=== PATIENT | female | born 1970 | race African-American/Black ===

== ENCOUNTER → 2021-11-22 10:34 | Outpatient (BNVA) | payer MEDICARE, MEDICAID, SELFPAY | PROVIDERS: Visit Provider Nurse Practitioner Family | DX: G35 Multiple sclerosis (principal); G47.33 Obstructive sleep apnea (adult) (pediatric); G43.909 Migraine, unspecified, not intractable, without status migrainosus; R20.2 Paresthesia of skin | CPT/HCPCS: 99212 ==

== ENCOUNTER → 2022-02-21 08:53 | Outpatient (BNVA) | payer MEDICARE, MEDICAID, SELFPAY | PROVIDERS: PCP Internal Medicine; Visit Provider Nurse Practitioner Family | DX: G35 Multiple sclerosis (principal); R20.2 Paresthesia of skin; G43.909 Migraine, unspecified, not intractable, without status migrainosus; G47.33 Obstructive sleep apnea (adult) (pediatric) | CPT/HCPCS: 99212 ==

== ENCOUNTER → 2022-05-26 07:51 | Outpatient (BNVA) | payer MEDICARE, MEDICAID, SELFPAY | PROVIDERS: PCP Internal Medicine; Visit Provider Nurse Practitioner Family | DX: G43.909 Migraine, unspecified, not intractable, without status migrainosus (principal) | CPT/HCPCS: 99212 ==

== ENCOUNTER 2022-07-07 | Outpatient (REF) | payer OTHER, SELFPAY ==
--- NOTE | ~2022-07-07 | XR_ITS ---
EXAMINATION: XR KNEE, RIGHT XR AP STANDING, BILATERAL CLINICAL INFORMATION: Pain. COMPARISON: None. TECHNIQUE: AP standing view of both knees and sunrise and lateral views of the right knee. FINDINGS: There is loss of the medial joint space compartment with marginal spurring and sclerosis identified. There is spurring about the lateral joint space compartment. There is also noted to be significant degenerative narrowing with sclerosis and spurring about the lateral joint space of the left knee. There is evidence of previous left medial collateral ligament injury with calcification adjacent to the medial condyle. There is narrowing of the patellofemoral joint with spurring present involving both medial and lateral facets. There appears to be a small effusion. XR/XR knee standing BI IMPRESSION: Severe degenerative joint disease about the patellofemoral joint and medial joint space of the right knee. Severe degenerative change of the lateral joint space of the left knee.
--- NOTE | ~2022-07-07 | XR_ITS ---
EXAMINATION: XR KNEE, RIGHT XR AP STANDING, BILATERAL CLINICAL INFORMATION: Pain. COMPARISON: None. TECHNIQUE: AP standing view of both knees and sunrise and lateral views of the right knee. FINDINGS: There is loss of the medial joint space compartment with marginal spurring and sclerosis identified. There is spurring about the lateral joint space compartment. There is also noted to be significant degenerative narrowing with sclerosis and spurring about the lateral joint space of the left knee. There is evidence of previous left medial collateral ligament injury with calcification adjacent to the medial condyle. There is narrowing of the patellofemoral joint with spurring present involving both medial and lateral facets. There appears to be a small effusion. XR/XR knee RT 2V IMPRESSION: Severe degenerative joint disease about the patellofemoral joint and medial joint space of the right knee. Severe degenerative change of the lateral joint space of the left knee.
== END 2022-07-07 00:01 | disposition home or self-care (01) ==
LOC: HO.HOSX
PROVIDERS: Visit Provider Physician Assistant
DX: M17.11 Unilateral primary osteoarthritis, right knee (principal); E66.01 Morbid (severe) obesity due to excess calories; G47.33 Obstructive sleep apnea (adult) (pediatric); Z68.41 Body mass index [BMI] 40.0-44.9, adult
CPT/HCPCS: 73560; 73565; 99202

== ENCOUNTER → 2022-07-13 13:07 | Outpatient (BNVA) | payer OTHER, SELFPAY | PROVIDERS: PCP Internal Medicine; Visit Provider Physician Assistant | DX: E66.01 Morbid (severe) obesity due to excess calories (principal); Z68.41 Body mass index [BMI] 40.0-44.9, adult; G47.33 Obstructive sleep apnea (adult) (pediatric); G35 Multiple sclerosis; G43.909 Migraine, unspecified, not intractable, without status migrainosus; M17.11 Unilateral primary osteoarthritis, right knee; I10 Essential (primary) hypertension; K21.9 Gastro-esophageal reflux disease without esophagitis | CPT/HCPCS: 99202; 99212 ==

== ENCOUNTER → 2022-07-20 08:43 | Outpatient (REF) | payer OTHER, SELFPAY ==
--- NOTE | ~2022-07-20 | XR_ITS ---
EXAMINATION: XR CHEST CLINICAL INFORMATION: Essential primary hypertension COMPARISON: None TECHNIQUE: 2 views of the chest were obtained. FINDINGS: No significant abnormality is noted involving the heart, lungs, mediastinum, bony thorax or soft tissues. There are degenerative changes of the spine. XR/XR chest 2V IMPRESSION: Unremarkable examination.
[2022-07-20 09:07] LABS: MANUAL DIFF FLAG NO
--- NOTE | 2022-07-20 09:07 | ECG_ITS ---
Test Reason : Hypertension Blood Pressure : / mmHG Vent. Rate : 070 BPM Atrial Rate : 070 BPM P-R Int : 168 ms QRS Dur : 088 ms QT Int : 396 ms P-R-T Axes : 018 034 039 degrees QTc Int : 427 ms Normal sinus rhythm Normal ECG No previous ECGs available Referred By: Mireya Sandoval Electronically Signed By:CHANELLE HUSSEIN MD
[2022-07-20 09:34] LABS: Basophils Percent Auto 0.4 % (0-2); Eosinophils Absolute Auto 0.1 X10*3/uL (0.0-0.4); Eosinophils Percent Auto 1.2 % (0-4); Hematocrit 38.3 % (37.0-47.0); Hemoglobin 12.6 g/dl (12.0-16.0); Imm Gran Abs Auto 0.01 X10*3/uL (0.00-0.03); Imm Gran Pct Auto 0.1 % (0.0-0.4); Lymphocytes Absolute Auto 1.2 X10*3/uL (1.2-4.9); Lymphocytes Percent Auto 17.2 % (20-40); Mean Corpuscular HGB Conc 32.9 g/dl (31.0-35.0); Mean Corpuscular Hemoglobin 28.7 pg (27.0-33.0); Mean Corpuscular Volume 87.2 fL (80.0-98.0); Mean Platelet Volume 10.9 fL (9.4-12.3); Monocytes Absolute Auto 0.3 X10*3/uL (0.1-1.2); Monocytes Percent Auto 4.3 % (2-11); Neutrophils Absolute Auto 5.3 x10*3/uL (2.0-8.3); Neutrophils Percent Auto 76.8 % (45-73); Platelet Count 350 X10*3/uL (160-400); Red Blood Count 4.39 X10*6/uL (4.20-5.50); Red Cell Distribution Width 13.1 % (11.0-16.0); White Blood Count 6.9 X10*3/uL (4.8-10.8)
[2022-07-20 10:00] LABS: Estimated Average Glucose 108 mg/dL; Hemoglobin A1c % 5.4 %
[2022-07-20 10:16] LABS: Alanine Aminotransferase 19 U/L (0-31); Albumin Level 4.3 g/dL (3.5-5.0); Alkaline Phosphatase 70 U/L (39-117); Anion Gap 13 (12-20); Aspartate Amino Transferase 18 U/L (5-31); Bilirubin Total 0.3 mg/dL (0.0-1.0); Blood Urea Nitrogen 12 mg/dL (9-16); C Reactive Protein 1.72 mg/dL (< or = 0.50); Calcium 9.6 mg/dL (8.4-10.2); Carbon Dioxide 27 mmol/L (22-29); Chloride 105 mmol/L (96-108); Cholesterol 117 mg/dL; Estimated Glomerular Filt Rate > 60; Glucose Random 114 mg/dL (60-115); HDL Cholesterol 42 mg/dL; Iron 44 mcg/dL (30-160); LDL Cholesterol Calculated 65 mg/dl; Percent Iron Saturation 11 % (15-50); Potassium 3.9 mmol/L (3.3-5.1); Sodium 141 mmol/L (135-145); Total Iron Binding Capacity 386 mcg/dL (228-428); Total Protein 7.5 g/dL (6.5-8.0); Triglycerides 50 mg/dL; Unsaturated Iron Binding 342 ug/dL
[2022-07-20 10:21] LABS: Ferritin 25 ng/mL (10-250); Insulin 13 uU/mL (2-29); TSH reflex Free T4 0.93 uIU/mL (0.32-4.0); Vitamin D 25-OH Total 19.5 ng/mL (>30)
[2022-07-20 10:39] LABS: Vitamin B12 806 pg/mL (200-900)
[2022-07-21 15:57] LABS: Calcium (PTHI) 9.5 mg/dL (8.6-10.4); PTHI 55 pg/mL (16-77)
[2022-07-24 07:16] LABS: Vitamin B1 13 nmol/L (8-30)
[2022-07-24 13:21] LABS: Zinc 81 mcg/dL (60-130)
[2022-07-24 17:51] LABS: Vitamin A 36 mcg/dL (38-98)
== END ==
LOC: HO.CARD 08:43
PROVIDERS: PCP Internal Medicine; Visit Provider Physician Assistant
DX: I10 Essential (primary) hypertension (principal); E66.01 Morbid (severe) obesity due to excess calories; Z68.41 Body mass index [BMI] 40.0-44.9, adult; G47.33 Obstructive sleep apnea (adult) (pediatric); K21.9 Gastro-esophageal reflux disease without esophagitis; G35 Multiple sclerosis
CPT/HCPCS: 36415; 71046; 80053; 80061; 82306; 82607; 82728; 82746; 83036; 83525; 83540; 83970; 84425; 84443; 84590; 84630; 85025; 86140; 93005

== ENCOUNTER → 2022-08-03 12:59 | Outpatient (BNVA) | payer OTHER, SELFPAY | PROVIDERS: PCP Internal Medicine; Visit Provider Physician Assistant | DX: E66.01 Morbid (severe) obesity due to excess calories (principal); G35 Multiple sclerosis; I10 Essential (primary) hypertension; K21.9 Gastro-esophageal reflux disease without esophagitis; G47.33 Obstructive sleep apnea (adult) (pediatric); Z68.41 Body mass index [BMI] 40.0-44.9, adult; Z68.42 Body mass index [BMI] 45.0-49.9, adult | CPT/HCPCS: 99212 ==

== ENCOUNTER → 2022-08-10 14:40 | Outpatient (BNVA) | payer OTHER, SELFPAY | PROVIDERS: PCP Internal Medicine; Visit Provider Dietitian, Registered | DX: E66.01 Morbid (severe) obesity due to excess calories (principal) | CPT/HCPCS: 97802 ==

== ENCOUNTER → 2022-08-29 11:07 | Outpatient (BNVA) | payer MEDICARE, SELFPAY | PROVIDERS: PCP Internal Medicine Nephrology; Visit Provider Nurse Practitioner Family | DX: G35 Multiple sclerosis (principal); G43.909 Migraine, unspecified, not intractable, without status migrainosus; G47.33 Obstructive sleep apnea (adult) (pediatric); R32 Unspecified urinary incontinence; Z79.899 Other long term (current) drug therapy | CPT/HCPCS: 99212 ==

== ENCOUNTER → 2022-11-30 10:37 | Outpatient (BNVA) | payer MEDICARE, SELFPAY | PROVIDERS: PCP Internal Medicine Nephrology; Visit Provider Nurse Practitioner Family | DX: G35 Multiple sclerosis (principal); R32 Unspecified urinary incontinence; I10 Essential (primary) hypertension; R20.2 Paresthesia of skin; G43.909 Migraine, unspecified, not intractable, without status migrainosus; G47.33 Obstructive sleep apnea (adult) (pediatric); Z99.89 Dependence on other enabling machines and devices | CPT/HCPCS: 99212 ==

== ENCOUNTER → 2023-01-25 12:45 | Outpatient (BNVA) | payer MEDICARE, SELFPAY | PROVIDERS: PCP Internal Medicine Nephrology; Visit Provider Urology | DX: G35 Multiple sclerosis (principal); R39.15 Urgency of urination; R32 Unspecified urinary incontinence | CPT/HCPCS: 51798; 99202 ==

== ENCOUNTER 2023-02-03 10:14 | Outpatient (REF) | payer MEDICARE, SELFPAY ==
--- NOTE | ~2023-02-03 | XR_ITS ---
EXAMINATION: XR LUMBOSACRAL SPINE WITH OBLIQUES CLINICAL INFORMATION: Low back pain. COMPARISON: MRI lumbar spine 01/03/2023 TECHNIQUE: AP, flexion/extension, and lateral views of the lumbar spine. FINDINGS: Radiographic evaluation is limited by patient's body habitus and extensive overlying soft tissues. Partial sacralization of L5 on the right. 8 mm anterolisthesis of L3 on L4. 8 mm anterolisthesis of L4 and L5. No change with flexion and extension. Vertebral body heights are maintained. There is facet hypertrophy at L3-L4, L4-L5 and L5-S1. Mild intervertebral disc space narrowing at L3-L4 and L5-S1. XR/XR lumbar spine 4V min IMPRESSION: Mild lumbar spondylosis at L3-L4 and L5-S1. 8 mm anterolisthesis of L3 on L4. 8 mm anterolisthesis of L4 on L5.
== END 2023-02-03 10:15 | disposition home or self-care (01) ==
LOC: HO.HOSX 10:14
PROVIDERS: PCP Internal Medicine; Visit Provider Physician Assistant
DX: M54.50 Low back pain, unspecified (principal)
CPT/HCPCS: 72110; 99202

== ENCOUNTER → 2023-03-02 10:38 | Outpatient (BNVA) | payer MEDICARE, SELFPAY | PROVIDERS: PCP Internal Medicine; Visit Provider Nurse Practitioner Family ==

== ENCOUNTER → 2023-03-15 11:42 | Outpatient (BNVA) | payer MEDICARE, SELFPAY | PROVIDERS: PCP Internal Medicine; Visit Provider Urology | DX: R39.15 Urgency of urination (principal); R32 Unspecified urinary incontinence; G35 Multiple sclerosis; Z79.82 Long term (current) use of aspirin; Z79.899 Other long term (current) drug therapy | CPT/HCPCS: 51798; 99212 ==

== ENCOUNTER 2023-05-26 09:44 | Outpatient (REF) | payer MEDICARE, SELFPAY ==
[2023-05-26 16:23] LABS: Urine Cytology See Pathology rpt
== END 2023-05-26 09:45 | disposition home or self-care (01) ==
LOC: HO.LAB 09:44
PROVIDERS: PCP Internal Medicine; Visit Provider Urology
DX: G35 Multiple sclerosis (principal); R39.15 Urgency of urination; R32 Unspecified urinary incontinence; R31.29 Other microscopic hematuria; N39.0 Urinary tract infection, site not specified
CPT/HCPCS: 81003; 87086; 88112; 99212

== ENCOUNTER 2023-05-26 09:44 | Outpatient (AMB) | payer MEDICARE, SELFPAY ==
--- NOTE | 2023-05-26 09:46 | A.OFFVIS_ITS ---
Intake Intake Visit Reasons: 10w/US Intake Note: Patient presents today for a follow-up on US Results: Patient no show Meds- None Allergies to Antibiotic- No Known Allergies Blood Thinner- None Pelletising Extruder Operator Required: No Accompanied by: Self / Same As Patient Allergies No Known Allergies Allergy (Verified 03/15/23 11:55) HPI HPI Comments History of Present Illness Details Petrona is a 53-year-old female who presents today to the office for a follow-up. 05/26/2023? Petrona is followed today for urinary incontinence. She was last seen by me on 03/15/2023 for multiple sclerosis. Gemtesa 75 mg was ordered during that time. Renal US prior was ordered, and she was advised to follow-up after 10 weeks at that time. She has been taking Gemtesa 75 mg for her bladder control. She states that Gemtesa is controlling her bladder symptoms better than the vesicare. She still needs to change the pads less often, every 4-6 hours, as compared to every 2 hours. She states that the pads are damped, where they were soaked prior to the use of the Gemtesa. She mentions having vaginal bleeding. Review of charts: Last visit: 03/15/2023? OV--01/25/23--seen as a new patient evaluation for urinary incontinence.? prescribed vesicare 5 mgThe patient is taking Vesicare 5 mg with moderate benefits, less urgency She still complains having episodes of urinary leakage but is better than before.? Denies UTI symptoms.? The patient complains increased urinary urgency and leakage since 2 years The patient had uncontrollable hand tremors and diplopia 4/5 years ago and was diagnosed with multiple sclerosis. She is taking Copaxone 3 times per week for multiple sclerosis. Has menorrhagia due to fibroids. The patient had 4 vaginal deliveries. She had her last 30 years ago. The largest delivered child was 8 pounds.? Has arthritis of right knee and uses cane to ambulate.? Co Morbidity - Obesity--The patient has lost weight from 330 pounds to 265 pounds to undergo arthritis surgery. history of varicose veins procedure done in the left leg which has affected her ability to walk/exercise. 03/15/23--Patient was unable to provide u rine sample today.? Evaluation today: Bladder scan PVR: 12 mL.? Plan : Gemtesa 75 mg was ordered.?Renal US prior was ordered.?Follow-up after 10 weeks. 05/26/2023: Evaluation today?UA? Leukocy fang: 15 José; blood: 3 + 05/26/2023: Plan: Continue Gemtesa 75 mg daily. Discussed the importance of getting renal bladder US. Will send urine for cytology. Surveillance urine culture. Office Cystoscopy was discussed to be scheduled. Follow up in 2 months. [facility] Medical History High blood pressure Surgical History H/O knee surgery Family History Mother No problems noted. Father No problems noted. Social History Household Members: Spouse Alcohol intake: current Alcohol intake frequency: a few times a week Alcohol type: beer and hard liquor Patient Tobacco Use Status: Never used Tobacco Current occupational status: disabled Review of Systems Const All systems reviewed & are unremarkable except as noted in HPI and below Reports no additional complaints Eyes Reports no additional complaints ENT Reports no additional complaints Card Denies dyspnea Resp Denies cough and Denies dyspnea GI Reports no additional complaints Reports no additional complaints Musc Reports no additional complaints Skin/Breast Denies rash Neuro Reports no additional complaints Psych Reports no additional complaints Endo Reports no additional complaints Scotty/Lymph Reports no additional complaints Aller/Immun Reports no additional complaints Physical Exam Const General: cooperative, healthy appearing and no acute distress Nutritional Appearance: overweight Orientation/consciousness: patient oriented x3 Limitations: ambulation with walker HEENT Head: Yes normal to inspection, Yes normocephalic and Yes atraumatic Eyes Conjunctivae: conjunctivae normal Neck Neck: Yes normal visual inspection and Yes trachea midline Chest Chest palpation & inspection: normal inspection of the chest Resp Effort & Inspection: normal respiratory effort Cardio Rate: regular rate GI Inspection: Yes normal to inspection Skin General skin exam: no rashes or lesions noted Neuro General: patient oriented x3 Psych Appearance: grossly normal Results AMB Urinalysis, Automated UA Leukoctes 15 José/uL Last Edit by JEAN-PIERRE Tran on 05/26/23 09:57 UA Nitrite Negative Last Edit by Ashvin Cabrera Tray on 05/26/23 09:57 UA Urobilinogen 0.2 mg/dL Last Edit by Ashvin Cabrera Tray on 05/26/23 09:5 7 UA Protein 15 mg/dL Last Edit by JEAN-PIERRE Tran on 05/26/23 09:57 UA pH 6.0 Last Edit by JEAN-PIERRE Tran on 05/26/23 09:57 UA Blood 200 Kapil/uL Last Edit by Ashvin Cabrera Tray on 05/26/23 09:57 3+ Ashvin Cabrera 05/26/23 09:57 UA Specific [place] 1.025 Last Edit by Ashvin Cabrera Tray on 05/26/23 09: 57 UA Ketone Negative Last Edit by JEAN-PIERRE Tran on 05/26/23 09:57 UA Bilirubin 0 mg/dL Last Edit by JEAN-PIERRE Tran on 05/26/23 09:57 UA Glucose 0 mg/dL Last Edit by Ashvin Cabrera [facility] on 05/26/23 09:57 Results Reviewed Results Reviewed: Laboratory Last Values Urine pH (Auto) 6.0 05/26/23 09:50 Specific [place] (Auto) 1.025 05/26/23 09:50 Urine Protein (Auto) 15 mg/dL 05/26/23 09:50 Glucose (UA)(Auto) 0 mg/dL 05/26/23 09:50 Urine Ketones (Auto) Negative 05/26/23 09:50 Urine Blood (Auto) 200 Kapil/uL 05/26/23 09:50 Urine Nitrite (Auto) Negative 05/26/23 09:50 Urine Bilirubin (Auto) 0 mg/dL 05/26/23 09:50 Urine Urobilinogen (Auto) 0.2 mg/dL 05/26/23 09:50 Leukocyte Esterase (Auto) 15 José/uL 05/26/23 09:50 Assessment & Plan Assessment & Plan (1) Multiple sclerosis: Comment: JCV + Code(s): G35 - Multiple sclerosis (2) Urinary urgency: Code(s): R39.15 - Urgency of urination (3) Urinary incontinence: Code(s): R32 - Unspecified urinary incontinence (4) Microscopic hematuria: Code(s): R31.29 - Other microscopic hematuria Plan Continue Gemtesa 75 mg daily. Discussed the importance of getting renal bladder US. Will send urine for cytology. Surveillance urine culture. Office Cystoscopy was discussed to be scheduled. Follow up in 2 months. Orders: Orders AMB Urinalysis Automated Today Z13.9 - Encounter for screening, unspecified Patient Instructions: The patient had an opportunity to ask questions regarding treatment plan. All questions were answered. Imaging, Laboratory studies and physical exam results were discussed and reviewed in detail. No major barriers to understanding were identified. The patient expressed understanding and agreement with the above treatment plan.? ? ? The patient is aware they should contact our office by phone for worsening of their current condition or the appearance of new symptoms. Compliance is encouraged with any medications and followup testing that is ordered.? ? ? It is a privilege to be allowed the opportunity to participate in the urologic care of your patient. If you have any questions or concerns regarding treatment for the above conditions please do not hesitate to contact me. The office telephone contact is [phone].? ? ? This note is constructed in part using voice recognition software. While every effort has been made to ensure accuracy beauty counselor errors may have been included.? ? ? Yours sincerely,? ? ? Juaquin Proctor MD? Coding Level of Care Code Est Pt Level 4 (63844) Diagnoses Multiple sclerosis G35 Urinary urgency R39.15 Urinary incontinence R32 Microscopic hematuria R31.29
== END 2023-05-26 10:09 | disposition home or self-care (01) ==
PROVIDERS: PCP Internal Medicine; Visit Provider Urology
DX: G35 Multiple sclerosis (principal); R39.15 Urgency of urination; R32 Unspecified urinary incontinence; R31.29 Other microscopic hematuria; Z13.9 Encounter for screening, unspecified
CPT/HCPCS: 99214

== ENCOUNTER 2023-06-21 08:48 | Outpatient (AMB) | payer MEDICARE, SELFPAY ==
--- NOTE | 2023-06-21 08:52 | A.OFFVIS_ITS ---
Intake Vital Signs 06/21/23 09:05 Height 5 ft 4 in Weight 299 lb BMI 51.3 BP 140/90 H Blood Pressure Location Rt brachial Position Sitting Pulse 62 Pulse Source Pulse Oximeter Pulse Oximetry (%) 97 Oxygen Delivery Method Room Air Intake Visit Reasons: Follow up for Migraines-Confirmed Intake Note: Patient presents for follow up migraines. patient states its better.not as bad as before Allergies No Known Allergies Allergy (Verified 06/21/23 09:07) Medication List - Last Reconciled 06/21/23 by IAM Garcia albuterol sulfate 2.5 mg inhalation Q6H albuterol sulfate 90 mcg/actuation (ProAir HFA) 1 inh inhalation QID amitriptyline 100 mg PO BEDTIME 90 days amlodipine 2.5 mg PO DAILY aspirin (Adult Aspirin Regimen) 81 mg PO DAILY baclofen 10 - 20 mg (1 - 2 x 10 mg) PO DAILY 90 days bupropion HCl 150 mg PO BID cetirizine 10 mg PO DAILY cholecalciferol (vitamin D3) 50 mcg PO DAILY Copaxone (glatiramer) 40 mg subcut 3XW 4 weeks NS cyclobenzaprine 5 mg PO BEDTIME PRN diclofenac sodium 1% (Voltaren Arthritis Pain) 4 grams topical QID PRN 30 days erenumab-aooe (Aimovig Autoinjector) 140 mg subcut ONCE 30 days ferrous sulfate (FeroSul) 325 mg PO DAILY fluticasone furoate-vilanterol 100-25 mcg/dose (Breo Ellipta) 1 inh inhalation DAILY metformin 500 mg PO DAILY omeprazole 20 mg PO DAILY tirzepatide (Mounjaro) mg subcut vibegron (Gemtesa) 75 mg PO DAILY HPI HPI Comments History of Present Illness Details 53-yr-old female presents for f/u visit. Since the last visit, pt underwent l-spine MRI which showed anterolithiasis and moderate central spinal canal stenosis. Pt was referred to neurosurgery. Per pt, she was supposed to have surgery, however the day she came, she was never called in , and she left after 1-2 hrs. She reports her MS is stable. No noticeable relapses. Most recent brain MRI- stable. Migraines attacks are better overall. She does continue to have urinary incontinence- now f/b urology. She is working w/ her PCP on weight loss strategies- she is starting Ozempic soon. She continues to have bothersome knee pain which limits her mobility/tolerance. Using a cane to wlak. Recently had a ER eval for new onset LLE pain- per pt, DVT was ruled out. She continues to have RLE and thigh region pain. Again declines LE EMG/NCS. 01/03/23, at [facility], L-spine MRI w/o: IMPRESSION: 1. Transitional lumbosacral anatomy with partial sacralization of L5 on the right. 2. The lumbar spinal canal is mildly dif fusely narrowed related to prominent epidural lipomatosis 3. At L4-L5, there is slight progression of grade 1 anterolisthesis related to advanced facet arthropathy with stable mild central spinal canal stenosis, bilateral subarticular zone narrowing with likely mass effect on the traversing L5 nerve roots, and moderate bilateral neural foraminal narrowing. 4. At L3-L4, there is slight progression of moderate central spinal canal stenosis, bilateral subarticular zone narrowing, and moderate left and mild right neural foraminal narrowing. 12/12/22, at [facility], MRI Brain and c-spine w/wo: IMPRESSION: 1. Stable pattern and degree of supraten torial, infratentorial, and cervical spinal cord white matter changes consistent with an underlying diagnosis of demyelination in the appropriate clinical setting. 2. No demonstrated new lesions, restrict ed diffusion, or abnormal enhancement to suggest disease progression of or active demyelination. 3. Moderate multilevel degenerative spon dyloarthropathy of the cervical spine as described in detail above. Most notably, there are mild spinal canal stenoses at C5-C6 and C6-C7. Moderate to severe neural foraminal stenoses at C5-C6 and C6-C7. [facility] Medical History High blood pressure Surgical History H/O knee surgery Family History Mother No problems noted. Father No problems noted. Social History Household Members: Spouse Alcohol intake: current Alcohol intake frequency: a few times a week Alcohol type: beer and hard liquor Patient Tobacco Use Status: Never used Tobacco Current occupational status: disabled Review of Systems Const All systems reviewed & are unremarkable except as noted in HPI and below Physical Exam Vital Signs: Last Vital Signs Pulse 62 06/21/23 09:05 BP 140/90 H 06/21/23 09:05 Pulse Ox 97 06/21/23 09:05 Oxygen Delivery Method Room Air 06/21/23 09:05 BMI result Body Mass Index 51.3 Const General: cooperative and no acute distress Orientation/consciousness: patient oriented x3 HEENT Head: Yes normocephalic Resp Effort & Inspection: normal respiratory effort and able to speak in complete sentences Neuro Other: Slow to stand, stooped at hips, left foot internally rottates some, steady w/ cane. General: patient oriented x3 and CN's II-XI intact bilaterally Cognition (Neuro): normal cognition Motor exam (neuro): 5/5 motor strength present throughout Psych Appearance: grossly normal Mental Status: mental status grossly normal Speech and movement: Normal speech and movement present Affect: normal affect Attitude: cooperative Thought process: Normal thought process present Thought content: Normal thought content present Insight: Good insight present (Psych) Judgement: Good judgement present (Psych) Assessment & Plan Assessment & Plan (1) Multiple sclerosis: Comment: JCV + Code(s): G35 - Multiple sclerosis (2) Migraine: Code(s): G43.909 - Migraine, unspecified, not intractable, without status migrainosus (3) Mild obstructive sleep apnea: Code(s): G47.33 - Obstructive sleep apnea (adult) (pediatric) Plan For multiple sclerosis: Reviewed Brain MRI w/wo and C-spine MRI w/wo- stable. Continue brand-name Copaxone 40 mg subQ 3 times per week. Previous MS tx failures: generic?Glatiramer acetate (red, itchy, watery eyes). ? For urinary incontinence: f/u w/ urology as scheduled ? For headaches: Continue Aimovig 140mg sc q month, as pt has had good clinical effect from use. Continue amitriptyline? to 100 mg q.h.s. and hopes this helps headaches and back pain.. May use Baclofen 10-20mg qhs prn- for headache or back pain. Continue as needed sumatriptan. BBs contraindicated d/t h/o asthma. ? For paresthesias and back/knee pain- Will f/u on status of l-spine rpair w/ neurosurgery Voltaren gel prn. Pt declines bilateral lower extremity EMG and nerve conduction study at this time. For KARLENE:? Continue CPAP 4cmH2O nightly > 4 hrs as pt is having good clinical effect from use. We will request new CPAP machine with functioning remote compliance capabilities. f/u in 4 months or sooner prn. Coding Level of Care Code Est Pt Level 4 (82968) Diagnoses Multiple sclerosis G35 Migraine G43.909 Mild obstructive sleep apnea G47.33
[2023-06-21 09:05] VITALS: BP 140/90; PULSE 62; O2SAT 97; BMI 51.3
== END 2023-06-21 09:53 | disposition home or self-care (01) ==
PROVIDERS: PCP Internal Medicine; Visit Provider Nurse Practitioner Family
DX: G35 Multiple sclerosis (principal); G43.909 Migraine, unspecified, not intractable, without status migrainosus; G47.33 Obstructive sleep apnea (adult) (pediatric)
CPT/HCPCS: 99214

== ENCOUNTER → 2023-06-21 08:48 | Outpatient (BNVA) | payer MEDICARE, SELFPAY | PROVIDERS: PCP Internal Medicine; Visit Provider Nurse Practitioner Family | DX: G35 Multiple sclerosis (principal); G43.909 Migraine, unspecified, not intractable, without status migrainosus; G47.33 Obstructive sleep apnea (adult) (pediatric); Z79.899 Other long term (current) drug therapy | CPT/HCPCS: 99212 ==

== ENCOUNTER 2023-09-01 14:27 | Outpatient (REF) | payer MEDICARE, SELFPAY | END 2023-09-01 14:28 | disposition home or self-care (01) | LOC: HO.US 14:27 | PROVIDERS: PCP Internal Medicine; Visit Provider Urology | DX: Z13.89 Encounter for screening for other disorder (principal) ==

== ENCOUNTER 2023-10-02 10:21 | Outpatient (AMB) | payer MEDICARE, SELFPAY ==
--- NOTE | 2023-10-02 10:32 | A.OFFVIS_ITS ---
Intake Vital Signs 10/02/23 10:34 Height 5 ft 4 in Weight 300 lb BMI 51.5 BP 142/70 H Blood Pressure Location Rt brachial Position Sitting Intake Visit Reasons: 3 mnts f/u for Migraines-Confirmed Intake Note: Patient presents for 3 month follow up migraines. better than last time Allergies No Known Allergies Allergy (Verified 10/02/23 10:36) Medication List - Last Reconciled 10/02/23 by IAM Garcia albuterol sulfate 2.5 mg inhalation Q6H albuterol sulfate 90 mcg/actuation (ProAir HFA) 1 inh inhalation QID amitriptyline 100 mg PO BEDTIME 90 days amlodipine 2.5 mg PO DAILY aspirin (Adult Aspirin Regimen) 81 mg PO DAILY baclofen 10 - 20 mg (1 - 2 x 10 mg) PO DAILY 90 days bupropion HCl 150 mg PO BID cetirizine 10 mg PO DAILY cholecalciferol (vitamin D3) 50 mcg PO DAILY Copaxone (glatiramer) 40 mg subcut 3XW 4 weeks NS cyclobenzaprine 5 mg PO BEDTIME PRN diclofenac sodium 1% (Voltaren Arthritis Pain) 4 grams topical QID PRN 30 days erenumab-aooe (Aimovig Autoinjector) 140 mg subcut ONCE 30 days ferrous sulfate (FeroSul) 325 mg PO DAILY fluticasone furoate-vilanterol 100-25 mcg/dose (Breo Ellipta) 1 inh inhalation DAILY metformin 500 mg PO DAILY omeprazole 20 mg PO DAILY tirzepatide (Mounjaro) mg subcut vibegron (Gemtesa) 75 mg PO DAILY HPI HPI Comments History of Present Illness Details 53-yr-old female presents for f/u visit. Pt reports she did have an ER eval for LLE burning calf pain- work-up was negative for DVT. Was told she has left knee arthritis- bone on bone. She did therapy- helped some. States MS is stable- denies any interval relapse symptoms. Urinary incontinence is better- trying to void more regularly. Drinks 2-3 12 oz bottles of water, 1-2 tea/coffee in the am, 2 8-12oz of premier protein drink. Headaches are a bit better but still daily. Tolerating the Amitriptyline and Topiramate well. Has not had Aimovig or Sumatriptan in some time. [facility] Medical History High blood pressure Surgical History H/O knee surgery Family History Mother No problems noted. Father No problems noted. Social History Household Members: Spouse Alcohol intake: current Alcohol intake frequency: a few times a week Alcohol type: beer and hard liquor Patient Tobacco Use Status: Never used Tobacco Current occupational status: disabled Review of Systems Const All systems reviewed & are unremarkable except as noted in HPI and below Physical Exam Vital Signs: Last Vital Signs BP 142/70 H 10/02/23 10:34 BMI result Body Mass Index 51.5 Const General: cooperative and no acute distress Orientation/consciousness: patient oriented x3 HEENT Head: Yes normocephalic Resp Effort & Inspection: normal respiratory effort and able to speak in complete sentences Neuro Other: stooped at waist, left antalgic gait, steayd w/ cane. General: patient oriented x3 and CN's II-XI intact bilaterally Cognition (Neuro): normal cognition Motor exam (neuro): 5/5 motor strength present throughout Psych Appearance: grossly normal Mental Status: mental status grossly normal Speech and movement: Normal speech and movement present Affect: normal affect Attitude: cooperative Thought process: Normal thought process present Thought content: Normal thought content present Insight: Good insight present (Psych) Judgement: Good judgement present (Psych) Assessment & Plan Assessment & Plan (1) Multiple sclerosis: Comment: JCV + Code(s): G35 - Multiple sclerosis (2) Mild obstructive sleep apnea: Code(s): G47.33 - Obstructive sleep apnea (adult) (pediatric) (3) Migraine: Code(s): G43.909 - Migraine, unspecified, not intractable, without status migrainosus Plan For multiple sclerosis: Last Brain MRI w/wo and C-spine MRI w/wo- stable in November 2022- will order annual f/u at next visit. Continue brand-name Copaxone 40 mg subQ 3 times per week. Previous MS tx failures: generic?Glatiramer acetate (red, itchy, watery eyes). ? For urinary incontinence: Continue scheduled voiding ? For headaches: Resume Aimovig 140mg sc q month, as pt has had good clinical effect from use previously. Continue amitriptyline? to 100 mg q.h.s. for headaches and back pain.. May use Baclofen 10-20mg qhs prn- for headache or back pain. Resume sumatriptan prn BBs contraindicated d/t h/o asthma. ? For paresthesias and back/knee pain- Monitor Voltaren gel prn. Pt has declined bilateral lower extremity EMG/NCS.. ? For KARLENE:? Continue CPAP 4cmH2O nightly > 4 hrs as pt is having good clinical effect from use. Will f/u on request new CPAP machine with functioning remote compliance capabilities. ? f/u in 4 months or sooner prn. Medications: New sumatriptan succinate (0.5 - 1 x 100 mg) 50 - 100 mg orally at onset of headache, may repeat in 2 hrs PRN; max 2 tabs per day or 4 tabs/week (may take with Ibuprofen) 30 days 12 tabs 6RF migraine headache Changed From topiramate 50 mg PO BID 30 days 60 tabs 6RF To topiramate 50 mg PO BEDTIME 30 days 30 tabs 6RF Refilled erenumab-aooe (Aimovig Autoinjector) 140 mg subcut ONCE 30 days 30 mL 6RF G4 3.909 - Migraine, unspecified, not intractable, without status migrainosus Coding Level of Care Code Est Pt Level 4 (60694) Diagnoses Multiple sclerosis G35 Mild obstructive sleep apnea G47.33 Migraine G43.909
[2023-10-02 10:34] VITALS: BP 142/70; BMI 51.5
== END 2023-10-02 11:32 | disposition home or self-care (01) ==
PROVIDERS: PCP Internal Medicine; Visit Provider Nurse Practitioner Family
DX: G35 Multiple sclerosis (principal); G47.33 Obstructive sleep apnea (adult) (pediatric); G43.909 Migraine, unspecified, not intractable, without status migrainosus
CPT/HCPCS: 99214

== ENCOUNTER → 2023-10-02 10:21 | Outpatient (BNVA) | payer MEDICARE, SELFPAY | PROVIDERS: PCP Internal Medicine; Visit Provider Nurse Practitioner Family | DX: G43.909 Migraine, unspecified, not intractable, without status migrainosus (principal); G35 Multiple sclerosis; G47.33 Obstructive sleep apnea (adult) (pediatric) | CPT/HCPCS: 99212 ==

== ENCOUNTER 2024-01-10 08:56 | Outpatient (AMB) | payer MEDICARE, SELFPAY ==
--- NOTE | 2024-01-10 09:35 | MHC.OFFVIS ---
Vital Signs 01/10/24 09:36 Height 5 ft 4 in Weight 309 lb BMI 53.0 BP 126/84 Blood Pressure Location Rt brachial Position Sitting Intake Visit Reasons: 3M follow up-Conf Intake Note: Patient presents for 3 month follow up Allergies No Known Allergies Allergy (Verified 01/10/24 09:38) Medication List - Last Reconciled 01/10/24 by IAM Garcia albuterol sulfate 2.5 mg inhalation Q6H albuterol sulfate 90 mcg/actuation (ProAir HFA) 1 inh inhalation QID amitriptyline 100 mg PO BEDTIME 90 days amlodipine 2.5 mg PO DAILY aspirin (Adult Aspirin Regimen) 81 mg PO DAILY baclofen 10 - 20 mg (1 - 2 x 10 mg) PO DAILY 90 days bupropion HCl SR 150 mg PO BID cetirizine 10 mg PO DAILY cholecalciferol (vitamin D3) 50 mcg PO DAILY Copaxone (glatiramer) 40 mg subcut 3XW 4 weeks NS cyclobenzaprine 5 mg PO BEDTIME PRN diclofenac sodium 1% (Voltaren Arthritis Pain) 4 grams topical QID PRN 30 days erenumab-aooe (Aimovig Autoinjector) 140 mg subcut ONCE 30 days ferrous sulfate (FeroSul) 325 mg PO DAILY fluticasone furoate-vilanterol 100-25 mcg/dose (Breo Ellipta) 1 inh inhalation DAILY metformin 500 mg PO DAILY omeprazole 20 mg PO DAILY sumatriptan succinate 50 - 100 mg orally at onset of headache, may repeat in 2 hrs PRN; max 2 tabs per day or 4 tabs/week (may take with Ibuprofen) 30 days tirzepatide (Mounjaro) mg subcut topiramate 50 mg PO BEDTIME 30 days vibegron (Gemtesa) 75 mg PO DAILY HPI Comments Details: 53-yr-old female presents for f/u visit. Pt denies any significant interval medical changes. Pt had seen Liyah hunter- had a few left knee cortisone injections, which helped for a few years. She has not followed back up, as she was told she has to lose weight. Her jay knee pain limits her mobility. No known MS relapses. She did have urology consult- has not had f/u. She was started on Gemtesa, which was helpful, but has run out. Migraines are a bit better but still daily. States compliant w/ Aimovig. Tolerating the Amitriptyline and Topiramate well. [facility] Medical History High blood pressure Surgical History H/O knee surgery Family History Mother No problems noted. Father No problems noted. Social History Household Members: Spouse Alcohol intake: current Alcohol intake frequency: a few times a week Alcohol type: beer and hard liquor Patient Tobacco Use Status: Never used Tobacco Current occupational status: disabled Physical Exam Vital Signs: Last Vital Signs BP 126/84 01/10/24 09:36 BMI result Body Mass Index 53.0 Const General: cooperative and no acute distress Orientation/consciousness: patient oriented x3 Resp Effort & Inspection: normal respiratory effort and able to speak in complete sentences Neuro Other: BUE MS 5/5 BLE MS 5-/5 Slow to stand, short steps, knees bent. General: patient oriented x3 Cranial nerves: Yes CN's II-XII intact bilaterally Cognition (Neuro): normal cognition Psych Appearance: grossly normal Mental Status: mental status grossly normal Speech and movement: Normal speech and movement present Affect: normal affect Attitude: cooperative Assessment & Plan Assessment & Plan (1) Multiple sclerosis: Comment: JCV + Code(s): G35 - Multiple sclerosis Category: Medical (2) Migraine: Code(s): G43.909 - Migraine, unspecified, not intractable, without status migrainosus Category: Medical (3) Mild obstructive sleep apnea: Code(s): G47.33 - Obstructive sleep apnea (adult) (pediatric) Category: Medical (4) Paresthesias: Comment: Left proximal lateral thigh- ? Meralgia paresthetica. BLE- plantar feet Code(s): R20.2 - Paresthesia of skin Category: Medical Plan For multiple sclerosis: Will order f/u Brain MRI w/wo and C-spine MRI w/wo.t. Continue brand-name Copaxone 40 mg subQ 3 times per week. Previous MS tx failures: generic?Glatiramer acetate (red, itchy, watery eyes). ? For urinary incontinence: Continue scheduled voiding Resume Gemtesa 75mg qd. ? For headaches: Trial Qulipta 60mg qhs- in hopes this is more effective than Aimovig, and may promote wt loss. Once Qulipta available, hold Aimovig 140mg sc q month, as pt has had good clinical effect from use previously. Continue amitriptyline? to 100 mg q.h.s. for headaches and back pain.. May use Baclofen 10-20mg qhs prn- for headache or back pain. Resume sumatriptan prn BBs contraindicated d/t h/o asthma. ? For paresthesias and back/knee pain- Voltaren gel prn. Pt has declined bilateral lower extremity EMG/NCS.. ? For KARLENE:? Continue CPAP 4cmH2O nightly > 4 hrs as pt is having good clinical effect from use. Will f/u on request new CPAP machine with functioning remote compliance capabilities. ? f/u in 6 months or sooner prn. Orders: Orders MR cervical spine wo/w con Today G35 - Multiple sclerosis, R39.15 - Urgency of urination MR head/brain wo/w con Today G35 - Multiple sclerosis, R39.15 - Urgency of urination Medications: New atogepant (Qulipta) 60 mg PO DAILY 30 days 30 tabs 6RF Changed From baclofen 10 - 20 mg (1 - 2 x 10 mg) PO DAILY 90 days 180 tabs 1RF To baclofen 10 - 20 mg (1 - 2 x 10 mg) PO DAILY 90 days PRN 90 tabs 1RF muscle spasm Refilled topiramate 50 mg PO BEDTIME 30 days 30 tabs 6RF sumatriptan succinate (0.5 - 1 x 100 mg) 50 - 100 mg orally at onset of headache, may repeat in 2 hrs PRN; max 2 tabs per day or 4 tabs/week (may take with Ibuprofen) 30 days 12 tabs 6RF migraine headache amitriptyline 100 mg PO BEDTIME 90 days 90 tabs 1RF vibegron (Gemtesa) 75 mg PO DAILY 90 tabs 3RF erenumab-aooe (Aimovig Autoinjector) 140 mg subcut ONCE 30 days 30 mL 6RF G43.909 - Migraine, unspecified, not intractable, without status migrainosus Coding Level of Care Code Est Pt Level 4 (24283) Diagnoses Multiple sclerosis G35 Migraine G43.909 Mild obstructive sleep apnea G47.33 Paresthesias R20.2
[2024-01-10 09:36] VITALS: BP 126/84; BMI 53.0
== END 2024-01-10 10:32 | disposition home or self-care (01) ==
PROVIDERS: PCP Internal Medicine; Visit Provider Nurse Practitioner Family
DX: G35 Multiple sclerosis (principal); G43.909 Migraine, unspecified, not intractable, without status migrainosus; G47.33 Obstructive sleep apnea (adult) (pediatric); R20.2 Paresthesia of skin
CPT/HCPCS: 99214

== ENCOUNTER → 2024-01-10 08:56 | Outpatient (BNVA) | payer MEDICARE, SELFPAY | PROVIDERS: PCP Internal Medicine; Visit Provider Nurse Practitioner Family | DX: G35 Multiple sclerosis (principal); G43.909 Migraine, unspecified, not intractable, without status migrainosus; G47.33 Obstructive sleep apnea (adult) (pediatric); R20.2 Paresthesia of skin | CPT/HCPCS: 99212 ==

== ENCOUNTER 2025-01-27 13:12 | Outpatient (AMB) | payer MEDICARE, SELFPAY ==
[2025-01-27 13:29] VITALS: BP 120/82; PULSE 80; O2SAT 95
--- NOTE | 2025-01-27 13:29 | A.OFFVIS_ITS ---
Vital Signs 01/27/25 13:29 Weight 306 lb BP 120/82 Blood Pressure Location Lt brachial Position Sitting Pulse 80 Pulse Source Pulse Oximeter Pulse Oximetry (%) 95 Oxygen Delivery Method Room Air Intake Visit Reasons: 6 Month F/U Intake Note: Patient presents 6 month follow up for KARLENE/Migraines. Patient non compliant with CPAP. Religious Assistant Required: No Accompanied by: Self / Same As Patient Allergies No Known Allergies Allergy (Verified 01/27/25 13:32) Medication List - Last Reconciled 01/27/25 by IAM Garcia albuterol sulfate 2.5 mg inhalation Q6H albuterol sulfate 90 mcg/actuation (ProAir HFA) 1 inh inhalation QID amitriptyline 100 mg PO BEDTIME 90 days amlodipine 2.5 mg PO DAILY apixaban (Eliquis) 5 mg PO BID aspirin (Adult Aspirin Regimen) 81 mg PO DAILY atogepant (Qulipta) 60 mg PO DAILY 30 days atorvastatin 20 mg PO BEDTIME baclofen 10 - 20 mg (1 - 2 x 10 mg) PO DAILY PRN 90 days bupropion HCl SR 150 mg PO BID cetirizine 10 mg PO DAILY cholecalciferol (vitamin D3) 50 mcg PO DAILY Copaxone (glatiramer) 40 mg subcut 3XW 4 weeks NS diclofenac sodium 1% (Voltaren Arthritis Pain) 4 grams topical QID PRN 30 days erenumab-aooe (Aimovig Autoinjector) 140 mg subcut ONCE 30 days ferrous sulfate (FeroSul) 325 mg PO DAILY fluticasone furoate-vilanterol 100-25 mcg/dose (Breo Ellipta) 1 inh inhalation DAILY igyftcodzbb-gcwjdcmgd-iqztdjyj 200-62.5-25 mcg (Trelegy Ellipta) 1 inh inhalation DAILY metformin 500 mg PO DAILY metoprolol succinate ER 12.5 mg PO DAILY omeprazole 20 mg PO DAILY sumatriptan succinate 50 - 100 mg orally at onset of headache, may repeat in 2 hrs PRN; max 2 tabs per day or 4 tabs/week (may take with Ibuprofen) 30 days tirzepatide (Mounjaro) mg subcut topiramate 50 mg PO BEDTIME 30 days vibegron (Gemtesa) 75 mg PO DAILY HPI Comments Details: 54-yr-old female presents for f/u visit of multiple sclerosis. Pt reports she had a hospitalization on Oct 2025, which she attributes to increased drinking. She had bouts of chest pain, diaphoresis. [facility] Since the hospitalization, she has been on Eliquis due to ?irregular heartbeat?. She reports prior to the hospitalization, she could drink a half pt of lindy a day- not all at once, just sitting it throughout the day as she was bored. Since, she has stopped drinking all alcohol. She notes that she is now sleeping better. Pt had seen [facility]- had a few left knee cortisone injections, which helped for a few years. She has not followed back up, as she was told she has to lose weight. Her jay knee pain limits her mobility. Interval 03/05/2024 brain MRI with and without contrast, showed periventricular white matter changes on the FLAIR and T2-weighted images with slight progression of the disease. Interval 03/05/2024 C-spine MRI with and without contrast, showed stable cervical cord T2 hyperintensity, stable asex-ui-vjpzlfwc multilevel degenerative disc disease with multilevel, though most prominent at C5-C6 w/ osteophyte complex, c entral canal stenosis/neuroforaminal narrowing After review of the MRIs, I did speak with patient, who noted that she was not always consistently taking her Copaxone every Mondayday Monday- and since has been trying to be more consistent with the use. Patient denies any known MS relapses. She has noticed occasional episodes of body jerking. She continues to have urinary leakage- stable. She has not had urology follow- up. She is having bilateral knee pain d/t OA- has not seen ortho since last visit. She has started ozempic to promote weight loss. Denies recent falls. Reports migraines are not as bad as spoke 4, no longer waking up every day with a headache. She never started Qulipta. States compliant w/ Aimovig. Tolerating Topiramate well. She does ask if she can come off of amitriptyline, as when she wakes up, she often still feels drunk. She states she is using her CPAP at times. [facility] Medical History High blood pressure Surgical History H/O knee surgery Family History Mother No problems noted. Father No problems noted. Social History Household Members: Spouse Alcohol intake: current Alcohol intake frequency: a few times a week Alcohol type: beer and hard liquor Patient Tobacco Use Status: Never used Tobacco Current occupational status: disabled Physical Exam Vital Signs: Last Vital Signs Pulse 80 01/27/25 13:29 BP 120/82 01/27/25 13:29 Pulse Ox 95 01/27/25 13:29 Oxygen Delivery Method Room Air 01/27/25 13:29 Const General: cooperative and no acute distress Orientation/consciousness: patient oriented x3 Resp Effort & Inspection: normal respiratory effort and able to speak in complete sentences Neuro Other: BUE MS 5/5 BLE MS 5-/5 Slow to stand, short steps, knees bent, steady with a cane General: patient oriented x3 Cranial nerves: Yes CN's II-XII intact bilaterally Cognition (Neuro): normal cognition Deep tendon reflexes (DTR's): Right patellar reflex intensity grade: 2+ and Left patellar reflex intensity grade: 1+ Psych Appearance: grossly normal Mental Status: mental status grossly normal Speech and movement: Normal speech and movement present Affect: normal affect Attitude: cooperative Assessment & Plan Assessment & Plan (1) Multiple sclerosis: Comment: JCV + Code(s): G35 - Multiple sclerosis Category: Medical (2) HTN (hypertension) with goal to be determined: Code(s): I10 - Essential (primary) hypertension Category: Medical (3) Migraine: Code(s): G43.909 - Migraine, unspecified, not intractable, without status migrainosus Category: Medical (4) Mild obstructive sleep apnea: Code(s): G47.33 - Obstructive sleep apnea (adult) (pediatric) Category: Medical (5) Paresthesias: Comment: Left proximal lateral thigh- ? Meralgia paresthetica. BLE- plantar feet Code(s): R20.2 - Paresthesia of skin Category: Medical Plan Requested [facility] ER/hospital admission notes and [facility] Cardiology notes. For multiple sclerosis: Reviewed interval brain MRI and C-spine MRI results- results most notable for mild progression in intracerebral white matter T2 hyperintensities. Will order f/u Brain MRI w/wo to assess stability of white matter changes. Check CBC and CMP prior to MRI Continue brand-name Copaxone 40 mg subQ 3 times per week. Previous MS tx failures: generic?Glatiramer acetate (red, itchy, watery eyes). ? For urinary incontinence: Continue scheduled voiding Follow-up with the Urology as needed. ? For migraine headaches: Continue Aimovig 140mg sc q month, as pt has had good clinical effect from use. Slowly wean off amitriptyline as below. May use Baclofen 10-20mg qhs prn- for headache or back pain. May use sumatriptan prn for now. BBs contraindicated d/t h/o asthma. ? For paresthesias and back/knee pain- Voltaren gel prn. Pt previously declined bilateral lower extremity EMG/NCS.. ? For KARLENE:? Continue CPAP 4cmH2O with the goal of using nightly > 4 hrs. Current PAP machine no longer transmitting data. ? Will follow-up upon review of above and patient to follow-up in clinic in 6 months or sooner prn. Orders: Orders Complete Blood Count Auto Diff Today G35 - Multiple sclerosis, I10 - Essential (primary) hypertension MR head/brain wo/w con Today G35 - Multiple sclerosis Comprehensive Met. Panel Today G35 - Multiple sclerosis, I10 - Essential (primary) hypertension Medications: New amitriptyline 3.5 tabs qhs x's 1 wk, then 3 tabs qhs x's 1 week, then 2.5 tabs x's 1 week, then 2 tabs qhs x's 1 week, then 1.5 tabs qhs x's 1 week, then 1 tab qhs x's 1 week, then 1/2 tab qhs x's 1 week, then 1/2 tab every other day x's 2 weeks, then stop orally bedtime; 9 weeks 96 tabs 0RF amitriptyline 3.5 tabs qhs x's 1 wk, then 3 tabs qhs x's 1 week, then 2.5 tabs x's 1 week, then 2 tabs qhs x's 1 week, then 1.5 tabs qhs x's 1 week, then 1 tab qhs x's 1 week, then 1/2 tab qhs x's 1 week, then 1/2 tab every other day x's 2 weeks, then stop orally bedtime; 9 weeks 96 tabs 0RF Refilled sumatriptan succinate (0.5 - 1 x 100 mg) 50 - 100 mg orally at onset of headache, may repeat in 2 hrs PRN; max 2 tabs per day or 4 tabs/week (may take with Ibuprofen) 30 days 12 tabs 6RF migraine headache topiramate 50 mg PO BEDTIME 30 days 30 tabs 6RF Copaxone (glatiramer) 40 mg subcut 3XW 4 weeks 12 mL 5RF NS Discontinued atogepant (Qulipta) Discontinued Reason: Doctor's Order 60 mg PO DAILY 30 days 30 tabs 6RF amitriptyline Discontinued Reason: Doctor's Order 100 mg PO BEDTIME 90 days 90 tabs 1RF vibegron (Gemtesa) Discontinued Reason: Doctor's Order 75 mg PO DAILY 90 tabs 3RF Coding Level of Care Code Est Pt Level 4 (22539) Complex EM visit Add On G2211 Diagnoses Multiple sclerosis G35 HTN (hypertension) with goal to be determined I10 Migraine G43.909 Mild obstructive sleep apnea G47.33 Paresthesias R20.2
--- OUTSIDE RECORDS SUMMARY | 2025-01-27 13:29 | XMS_ITS ---
Author Organization [facility] Address [address] [place] [address] Care Team Providers Care Gps Field Data Collector Name Role Phone FREEMAN DUPONT Primary Care Provider [phone] NISHANT POOL Unavailable [phone] Encounters Encounter Location Date Provider Diagnosis [address] [address] [place] [address] 11/26/2024 NISHANT POOL PLAN OF TREATMENT Next Appt Details Provider Name:FREEMAN DUPONT, 04/04/2025 08:30:00 AM, [address], [address], [place], [address], Progress Notes * HASMUKH PARDOB:1970 (54 yo F)Acc No.[id number]:11/26/2024 Patient:??TARYN PARDO :1970?Age:54 Y?Sex:Fe male Address:[address] [place] [address], [place] [address] * true * Date:??
--- OUTSIDE RECORDS SUMMARY | 2025-01-27 13:29 | XMS_ITS | Clinical Summary ---
Author Organization 299 [facility] Address [address] [place] [phone] Phone Care Team Providers Care [employer] Name Role Phone Casi Tapia MD Primary Care Provider [phone] Allergies No known active allergies Medications albuterol 2.5 mg /3 mL (0.083 %) nebulizer solution Take 3 mL (2.5 mg total) by nebulization every 6 (six) hours if needed. Active albuterol HFA (PROAIR HFA ; PROVENTIL HFA ; VENTOLIN HFA) 90 mcg/actuation inhaler Inhale 2 puffs by mouth every 6 (six) hours if needed for wheezing or shortness of breath. Active amitriptyline (ELAVIL) 100 mg tablet Take 1 tablet (100 mg total) by mouth at bedtime. at bedtime. 5 Active baclofen (LIORESAL) 10 mg tablet Take 1-2 tablets (10-20 mg total) by mouth 1 (one) time each day if needed for muscle spasms. 5 Active cyclobenzaprine (FLEXERIL) 5 mg tablet Take 2 tablets (10 mg total) by mouth at bedtime. Active ferrous sulfate 325 mg (65 mg elemental iron) tablet Take 1 tablet (325 mg total) by mouth 1 (one) time each day. for 90 days Active Trelegy Ellipta 200-62.5-25 mcg inhaler Inhale 1 puff (200 mcg total) by mouth 1 (one) time each day. 5 Active metFORMIN (GLUCOPHAGE) 500 mg tablet Take 1 tablet (500 mg total) by mouth 1 (one) time each day. with food Active SUMAtriptan (IMITREX) 100 mg tablet Take 1 tablet (100 mg total) by mouth 1 (one) time if needed for migraine. 4 Active apixaban (ELIQUIS) 5 mg tablet Take 1 tablet (5 mg total) by mouth 2 (two) times a day. 60 each 2 5 02/14/20 25 Active aspirin 81 mg EC tablet Take 1 tablet (81 mg total) by mouth 1 (one) time each day. 30 each 11 5 11/15/19 26 Active glatiramer (Copaxone) 40 mg/mL injection Inject 1 mL (40 mg total) under the skin 3 (three) times a week. Active atorvastatin (LIPITOR) 20 mg tablet Take 1 tablet (20 mg total) by mouth 1 (one) time each day. 30 each 5 5 06/04/20 25 Active metoprolol succinate (TOPROL-XL) 25 mg 24 hr tablet Take 1 tablet (25 mg total) by mouth 1 (one) time each day. Do not crush or chew. 30 each 5 5 06/04/20 25 Active amLODIPine (NORVASC) 2.5 mg tablet Take 1 tablet (2.5 mg total) by mouth 1 (one) time each day. 90 tablet 1 5 Active Active Problems Problem Noted Date Diagnosed Date Typical atrial flutter (CMS/HCC V24, CMS/HCC V28 ) 11/14/2024 Assessment & Plan (12/06/2024 10:24 AM EDT): Patient is in normal sinus rhythm at the appointment today. We did go over several risk factors for atrial flutter, the patient believes that she was dehydrated and had been drinking alcohol the day before the first presentation of atrial flutter. Patient is tolerating the Eliquis well which she is using for CVA prophylaxis. She is on metoprolol for rate control. I am going to order a 48-hour Holter monitor to further assess. Orders: ECG 12 lead Cardiac holter monitor (<= 48 hours); Future Assessment & Plan (11/15/2024 5:02 PM EST): No recurrences overnight. As previously mentioned, I did review her strips with electrophysiology informally. Her differential is A. tach versus a flutter. However, given that flutter is in the differential and her [id number] is 3, we will proceed with Eliquis 5 twice daily for CVA prophylaxis. Risk, benefits, and alternatives reviewed with the patient who verbalized understanding and wishes to proceed. At this point, would switch over to Toprol-XL 50 mg daily for discharge. My hope is that this will serve both to prevent arrhythmia and as an antianginal. Will reassess in clinic in about a month or 2. Assuming symptoms are improved, we can continue with medical management. If symptoms persist or patient wants to get off of medications, would consider EP referral as an outpatient to discuss potential for ablation. Asthma 11/14/2024 GERD (gastroesophageal reflux disease) MS (multiple sclerosis) ([facility] V24, CMS/[facility] V2 8) 11/14/2024 KARLENE on CPAP 11/14/2024 Stable angina ([facility] V24) 11/14/2024 Assessment & Plan (12/06/2024 10:24 AM EDT): Patient does report some slight chest discomfort with workload above average, like walking up a set of stairs when she is carrying a laundry basket. She says that this discomfort relieves as soon as she stops. Is currently utilizing the amlodipine 2.5 mg as antianginal in addition to the metoprolol. Continue on current medication regiment. Assessment & Plan (11/15/2024 5:03 PM EST): Reviewed the results of her stress test with her in detail and was able to answer hers and her partner's questions to their satisfaction. At this time, we will proceed with medical management because she is having stable anginal symptoms with low risk territory ischemia. Adding Toprol XL 50 mg daily and lieu of prior amlodipine. Continue aspirin, statin at current dose. Elevated troponin I level 11/14/2024 Assessment & Plan (11/14/2024 1:37 PM EST): Demand mediated in the setting of a flutter with rapid ventricular response and likely pre-existing coronary disease. No indication for acute anticoagulation with heparin (however we are starting DOAC for A-fib). Arthritis of knee, right 10/29/2020 Intramural leiomyoma of uterus 03/20/2007 Resolved Problems Problem Noted Date Diagnosed Date Resolved Date SVT (supraventricular tachyc ardia) (CMS/HCC V24) 11/14/2024 11/15/2024 Encounters Date Type Department Care Team Description 12/12/2024 Telephone [facility] [address] [place] [address] Trav Hernández NP EP referral 12/09/2024 1:00 PM EDT Ancillary Procedure [facility] [address] [place] [address] Typical atrial flutter (CMS/HCC V24, CMS/HCC V28) 12/06/2024 9:40 AM EDT Office Visit [facility] [address] [place] [address] Trav Hernández NP Typical atrial flutter (CMS/HCC V24, CMS/HCC V28) (Primary Dx); Stable angina (CMS/HCC V24); Hyperlipidemia, unspecified hyperlipidemia type 11/25/2024 Telephone [facility] Cardiology [facility] [address] [place] [phone] Casi Tapia MD Referral (Received routine hospital paper referral. aek) 11/22/2024 4:07 PM EST - 11/22/2024 6:55 PM EST Emergency [facility] Emergency [address] [place] [phone] Sondra Hermosillo DO Palpitations (Primary Dx) Discharge Disposition: Home or Self Care 11/13/2024 6:59 PM EST - 11/15/2024 5:18 PM EST Hospital Encounter [facility] Intermediate Care Unit [address] [place] [address] Sondra Hermosillo DO Goebel, Mathew, MD Jones, Christopher, MD Flores, Carlos M, MD Bell, Alistair A, MD Supraventricular tachycardia (CMS/HCC V24) (Primary Dx); Elevated troponin; Angina pectoris (CMS/HCC V24) Discharge Disposition: Home or Self Care from Last 3 Months Social History Tobacco Use Types Packs/Day Years Used Date Smoking Tobacco: Never Smokeless Tobacco: Never Tobacco Cessation:Counseling Given: No Alcohol Use Standard Drinks/Week Comments Not Currently 0 (1 standard drink = 0.6 oz pur e alcohol) Interpersonal Safety Answer Date Record ed Physical Abuse 11/15/2024 Verbal Abuse 11/15/2024 Comments Unknown Sex and Gender Information Value Date Recorded Sex Assigned at Female 07/31/2024 11:29 PM EST Legal Sex Female 1:49 PM EST Gender Identity Female 07/31/2024 11:29 PM EST Sexual Orientation Straight 11/22/2024 6: 02 PM EST Obstetrics History Last Filed Vital Signs Vital Sign Reading Time Taken Comments Blood Pressure 102/76 12/06/2024 9:41 AM EDT Pulse 76 12/06/2024 9:41 AM EDT Temperature 36.5 ??C (97.7 ??F) 11/22/2024 6:23 PM ES T Respiratory Rate 16 11/22/2024 6:23 PM EST Oxygen Saturation 99% 12/06/2024 9:41 AM EDT Inhaled Oxygen Concentration - - Weight 139 kg (306 lb 3.2 oz) 12/06/2024 9:41 AM EDT Height 162.6 cm (5' 4 ) 12/06/2024 9:41 AM EDT Body Mass Index 52.56 12/06/2024 9:41 AM EDT Plan of Treatment Upcoming Encounters Date Type Department Care Team (Late st Contact Info) Description 02/24/2025 8:40 AM EDT Consult [facility] [address] [place] [address] Bandar Garcia MD [address] [facility] [address] [place] [address] 03/31/2025 8:40 AM EDT Office Visit [facility] - [facility] [address] [facility] [address] [place] [address] Trav Hernández NP [address] [place] [address] Health Maintenance Due Date Last Done Comments Breast Cancer Screening 1968 DTaP,Tdap,and Td Vaccines (1 - Tdap) 1987 Hepatitis B Vaccines (1 of 3 - 19+ 3-dose series) 1987 Cervical Cancer Screening: Pap Smear 1989 Pneumococcal Vaccine: 50+ Years (2 of 2 - PCV) 08/17/2008 08/17/2007 Pneumococcal Vaccine: Pediatrics (0 to 5 Years) and At-Risk Patients (6 to 64 Years) (2 of 2 - PCV) 08/17/2008 08/17/2007 Depression Screening 08/16/2022 HIV Screening 08/16/2022 Hepatitis C Screening 08/16/2022 Medicare Annual Wellness Visit 08/16/2022 Social Influencers of Health Screening 08/16/2022 COVID-19 Vaccine ( season) 2024 05/17/2022, 09/26/2021, 01/06/2021, Additional history exists Influenza Vaccine (Season Ended) 2025 08/20/2021, 05/29/2019, 06/20/2018, Additional history exists Colorectal Cancer Screening: FIT-DNA (Cologuard) 07/07/2025 07/07/2022, 07/07/2022, 06/11/2019 Hypertension/CHF/CAD Annual BMP Blood Test 11/22/2025 11/22/2024, 11/14/2024, 11/13/2024, Additional history exists Cholesterol Screening (Lipid Panel) 11/14/2029 11/14/2024, 07/31/2024 Zoster Vaccines Completed 06/13/2022, 04/09/2022 HIB Vaccines Aged Out No longer eligi ble based on patient's age to complete this topic HPV Vaccines Aged Out No longer eligi ble based on patient's age to complete this topic Hepatitis A Vaccines Aged Out No long er eligible based on patient's age to complete this topic IPV Vaccines Aged Out No longer eligi ble based on patient's age to complete this topic MMR Vaccines Aged Out No longer eligi ble based on patient's age to complete this topic Meningococcal ACWY Vaccine Aged Out N o longer eligible based on patient's age to complete this topic Meningococcal B Vaccine Aged Out No l onger eligible based on patient's age to complete this topic RSV Immunization Patients Under 20 months Aged Out No longer eligible based on patient's age to complete this topic Varicella Vaccines Aged Out No longer eligible based on patient's age to complete this topic Procedures Procedure Name Priority Date/Time Associated Diagnosis Comments CARDIAC HOLTER MONITOR (REPORT GENERATED IN HOUSE) Routine 12/09/2024 1:03 PM EDT Typical atrial flutter (CMS/HCC V24, CMS/HCC V28) ECG 12-LEAD Routine 12/06/2024 10:14 AM EDT Typical atrial flutter (CMS/HCC V24, CMS/HCC V28) ECG ANNOTATED 11/25/2024 TROPONIN I HIGH SENSITIVITY STAT 11/22/2024 5:27 PM EST ECG 12-LEAD STAT 11/22/2024 5:25 PM EST XR CHEST 2 VIEWS STAT 11/22/2024 4:56 PM EST ECG 12-LEAD STAT 11/22/2024 4:28 PM EST CBC WITH AUTO DIFFERENTIAL STAT 11/22/2024 4:21 PM EST B-TYPE NATRIURETIC PEPTIDE STAT 11/22/2024 4:21 PM EST MAGNESIUM STAT 11/22/2024 4:21 PM EST LIPASE STAT 11/22/2024 4:21 PM EST COMPREHENSIVE METABOLIC PANEL STAT 11/22/2024 4:21 PM EST CBC AND DIFFERENTIAL STAT 11/22/2024 4:21 PM EST TROPONIN I HIGH SENSITIVITY STAT 11/22/2024 4:21 PM EST ECG ANNOTATED 11/16/2024 ECG ANNOTATED 11/16/2024 ECG OUTSIDE 11/16/2024 POCT GLUCOSE BLOOD Routine 11/15/2024 3: 39 PM EST NM LEXISCAN STRESS TEST W/ MYOCARDIAL PERFUSION Routine 11/15/2024 12:17 PM EST Supraventricular tachycardia (CMS/HCC V24) Elevated troponin Angina pectoris (CMS/HCC V24) POCT GLUCOSE BLOOD Routine 11/15/2024 7: 39 AM EST TROPONIN I HIGH SENSITIVITY Routine 11/15/2024 6:35 AM EST SST - GOLD Routine 11/15/2024 6:33 AM EST EXTRA TUBES Routine 11/15/2024 6:33 AM EST LAVENDER - EDTA Routine 11/15/2024 6:33 AM EST EXTRA TUBES Routine 11/15/2024 6:33 AM EST POCT GLUCOSE BLOOD Routine 11/14/2024 8: 25 PM EST POCT GLUCOSE BLOOD Routine 11/14/2024 6: 06 PM EST POCT GLUCOSE BLOOD Routine 11/14/2024 4: 38 PM EST ACTIVATED PARTIAL THROMBOPLASTIN TIME STAT 11/14/2024 2:14 PM EST PROTHROMBIN TIME WITH INR STAT 11/14/2024 2:14 PM EST POCT GLUCOSE BLOOD Routine 11/14/2024 11 :47 AM EST CPAP NIV Routine 11/14/2024 10:09 AM EST CPAP NIV Routine 11/14/2024 10:09 AM EST ETHANOL Add-On 11/14/2024 9:20 AM EST LAVENDER - EDTA Routine 11/14/2024 9:20 AM EST EXTRA TUBES Routine 11/14/2024 9:20 AM EST CREATINE KINASE AND CKMB Add-On 11/14/2024 9:20 AM EST CREATINE KINASE STAT Add-on 11/14/2024 9:20 AM EST TROPONIN I HIGH SENSITIVITY STAT 11/14/2024 9:20 AM EST LIPID PANEL WITH REFLEX TO DIRECT LDL Routine 11/14/2024 9:20 AM EST POCT GLUCOSE BLOOD Routine 11/14/2024 9: 14 AM EST TRANSTHORACIC ECHOCARDIOGRAM (TTE) COMPLETE W/ CONTRAST Routine 11/14/2024 8:39 AM EST Supraventricular tachycardia (CMS/HCC V24) Elevated troponin CBC WITH AUTO DIFFERENTIAL Routine 11/14/2024 4:07 AM EST CBC AND DIFFERENTIAL Routine 11/14/2024 4:07 AM EST BASIC METABOLIC PANEL Routine 11/14/2024 4:07 AM EST C-REACTIVE PROTEIN Routine 11/14/2024 4: 07 AM EST HCG QUALITATIVE, URINE Routine 1:38 AM EST HOBSON URINE CULTURE TUBE Routine 11/14/2024 1:38 AM EST URINALYSIS WITH REFLEX MICROSCOPIC AND CULTURE Routine 11/14/2024 1:38 AM EST DRUG ABUSE SCREEN 8A PANEL, URINE Routine 11/14/2024 1:38 AM EST URINALYSIS WITH REFLEX MICROSCOPIC AND CULTURE Routine 11/14/2024 1:38 AM EST CULTURE URINE Routine 11/14/2024 1:38 AM EST ECG 12-LEAD Routine 11/13/2024 9:01 PM EST B-TYPE NATRIURETIC PEPTIDE STAT 11/13/2024 8:50 PM EST TROPONIN I HIGH SENSITIVITY STAT 11/13/2024 8:50 PM EST XR CHEST 1 VIEW STAT 11/13/2024 8:32 PM EST ECG 12-LEAD STAT 11/13/2024 7:44 PM EST ETHANOL Add-On 11/13/2024 7:11 PM EST THYROID STIMULATING HORMONE WITH REFLEX TO FREE T4 AND FREE T3 STAT Add-on 11/13/2024 7:11 PM EST CBC WITH AUTO DIFFERENTIAL STAT 11/13/2024 7:11 PM EST MAGNESIUM STAT 11/13/2024 7:11 PM EST LIPASE STAT 11/13/2024 7:11 PM EST COMPREHENSIVE METABOLIC PANEL STAT 11/13/2024 7:11 PM EST CBC AND DIFFERENTIAL STAT 11/13/2024 7:11 PM EST TROPONIN I HIGH SENSITIVITY STAT 11/13/2024 7:11 PM EST ECG 12-LEAD STAT 11/13/2024 7:09 PM EST ECG 12-LEAD STAT 11/13/2024 6:48 PM EST from Last 3 Months Results * CARDIAC HOLTER MONITOR (REPORT GENERATED IN HOUSE) (12/09/2024 1:03 PM EDT) Anatomical Region Laterality Modality Cardiac Diagnost ic Narrative 12/16/2024 2:53 PM EDT [facility] DEPARTMENT [address] [place] [address] TEL: FAX: Type of Test: 48 Hour Holter Monitor Date of Test: 12/09/2024 Ordering Provider: Trav Hernández NP Reason for Test: Typical Atrial Flutter Findings: ?? 1: Normal Sinus Rhythm with physiologic variation. ??Average heart rate was 77 bpm. 2: Rare PACs and a few atrial pairs. ??No atrial arrhythmias noted. 3: Frequent PVCs and ventricular trigeminy. Occasional ventricular bigeminy. Rare couplets and venticular quadrigeminy. PVC [place] was 3.5%. 4: No significant pause noted, longest R-R was 1.2 seconds at 3:47 PM. 5: Diary returned with symptoms of palpitations, lightheadedness, shortness of breath, chest pains, and right arm pain noted. EKG at those times showed Normal Sinus Rhythm and isolated PVCs and a few episodes of ventricular quadrigeminy. Heart rates were in the range of 69-94 BPM. Impression: ?? 1. ??There were no atrial arrhythmias noted. 2. ??There were frequent PVCs with an overall burden of 3.5%. 3. ??Patient symptoms correlated frequently with sinus rhythm and isolated PVCs. Trav Hernández NP CV CARDIAC SERVICES PROCEDURES F inal Result * ECG 12 lead (12/06/2024 10:14 AM EDT) Only the most recent of7 resultswithin the time period is included. Ventricular Rate ECG 71 BPM GEMUSE Atrial Rate 71 BPM GEMUSE P-R Interval 174 ms GEMUSE QRS Duration 84 ms GEMUSE Q-T Interval 400 ms GEMUSE QTc 434 ms GEMUSE P Wave Paulina 67 degrees GEMUSE R Paulina 60 degrees GEMUSE T Paulina 60 degrees GEMUSE ECG Interpretation Normal sinus rhythm Normal ECG When compared with ECG of 22-NOV-2024 17:25, Questionabl e change in QRS axis Confirmed by MAYI PARK ([id number]) on 12/12/2024 12:26:07 PM GEMUSE 12/06/2024 9:59 AM EDT 12/12/2024 12:26 PM EDT us Trav Hernández NP ECG ORDERABLES Edited Result - Final GEMUSE * ECG-Annotated (11/25/2024) Only the most recent of3 resultswithin the time period is included. us Provider Sidra SMITH ECG ORDERABLES Final Result * Troponin I high sensitivity (11/22/2024 5:27 PM EST) Only the most recent of6 resultswithin the time period is included. [facility] High Sensitivity Troponin I 8 <=54 ng/L LAB CHEMISTRY METHOD 11/22/2024 6:28 PM EST [facility] Blood Venous blood specimen / Unknown Venipuncture / Unknown 11/22/2024 5:27 PM EST 11/22/2024 5:55 PM EST Narrative [facility] - 11/22/2024 6:28 PM EST High levels of biotin in samples may falsely decrease hsTroponin values. ??Use caution when interpreting hsTroponin results in patients taking biotin who exhibit renal impairment (eGFR <60) or in patients taking more than 20 mg/day of biotin. us Kendall Mccabe MD LAB BLOOD ORDERABLES Final Resu lt [facility] [address] [place] [address], * XR Chest 2 Views (11/22/2024 4:56 PM EST) Anatomical Region Laterality Modality Body Radiographic Fatmata ging 11/22/2024 5:00 PM EST Impressions 11/22/2024 5:01 PM EST No dense pneumonia or edema. ??Hypoinflation. -------- FINAL REPORT -------- Dictated By: Vinayak Baez Dictated Date: 11/22/2024 17:00 ET Assigned Physician: Vinayak Baez Reviewed and Electronically Signed By: Vinayak Baez Signed Date: 11/22/2024 17:01 ET Workstation ID: [id number] Transcribed By: Self Edit Transcribed Date: 11/22/2024 17:00 ET Narrative 11/22/2024 5:01 PM EST EXAMINATION: CHEST CLINICAL INFORMATION: Chest pain. ??Shortness of breath COMPARISON: Frontal view 11/13/2024 TECHNIQUE: 2 views of the chest FINDINGS: The cardiac size is top normal. ??No mediastinal or hilar mass. ??The vasculature is normal. ??Lung volumes are low normal. There is no focal pneumonia or major zone of atelectasis. ??There is no pleural fluid or pneumothorax. No suspicious focal bony lesions Procedure Note Vinayak Baez MD - 11/22/2024 EXAMINATION: CHEST CLINICAL INFORMATION: Chest pain. Shortness of breath COMPARISON: Frontal view 11/13/2024 TECHNIQUE: 2 views of the chest FINDINGS: The cardiac size is top normal. No mediastinal or hilar mass. Thevasculature is normal. Lung volumes are low normal. There is no focal pneumonia or major zone of atelectasis. There is nopleural fluid or pneumothorax. No suspicious focal bony lesions IMPRESSION: No dense pneumonia or edema. Hypoinflation. -------- FINAL REPORT -------- Dictated By: Vinayak Baez Dictated Date: 11/22/2024 17:00 ET Assigned Physician: Vinayak Baez Reviewed and Electronically Signed By: Vinayak Baez Signed Date: 11/22/2024 17:01 ET Workstation ID: [id number] Transcribed By: Self Edit Transcribed Date: 11/22/2024 17:00 ET Kendall Mccabe MD IMG XR PROCEDURES Final Result * (ABNORMAL) CBC auto differential (11/22/2024 4:21 PM EST) Only the most recent of3 resultswithin the time period is included. [facility] WBC 10.2 4.8 - 10.8 K/mcL LAB HEMETOLOGY METHOD 11/22/2024 4:52 PM [facility] RBC 4.30 3.80 - 4.80 M/mcL LAB HEMETOLOGY METHOD 11/22/2024 4:52 PM [facility] Hemoglobin 13.0 11.5 - 16.0 g/dL LAB HEMETOLOGY METHOD 11/22/2024 4:52 PM [facility] Hematocrit 39.2 35.0 - 47.0 % LAB HEMETOLOGY METHOD 11/22/2024 4:52 PM [facility] MCV 91.4 79.0 - 98.0 FL LAB HEMETOLOGY METHOD 11/22/2024 4:52 PM [facility] MCH 30.3 27.0 - 32.0 pcg LAB HEMETOLOGY METHOD 11/22/2024 4:52 PM [facility] MCHC 33.2 32.0 - 37.0 g/dL LAB HEMETOLOGY METHOD 11/22/2024 4:52 PM [facility] RDW 13.1 11.0 - 15.0 % LAB HEMETOLOGY METHOD 11/22/2024 4:52 PM [facility] Platelets 276 130 - 400 K/mcL LAB HEMETOLOGY METHOD 11/22/2024 4:52 PM [facility] MPV 11.4(H) 7.0 - 11.0 FL LAB HEMETOLOGY METHOD 11/22/2024 4:52 PM [facility] NRBC 0.0 <1.0 % LAB HEMETOLOGY METHOD 11/22/2024 4:52 PM [facility] NRBC Absolute 0.00 <0.10 K/mcL LAB HEMETOLOGY METHOD 11/22/2024 4:52 PM [facility] Neutrophils Relative 79.8 % LAB HEMETOLOGY METHOD 11/22/2024 4:52 PM [facility] Lymphocytes Relative 15.4 % LAB HEMETOLOGY METHOD 11/22/2024 4:52 PM [facility] Monocytes Relative 3.4 % LAB HEMETOLOGY METHOD 11/22/2024 4:52 PM [facility] Eosinophils Relative 0.6 % LAB HEMETOLOGY METHOD 11/22/2024 4:52 PM [facility] Basophils Relative 0.4 % LAB HEMETOLOGY METHOD 11/22/2024 4:52 PM [facility] Immature Granulocytes Relative 0.4 % LAB HEMETOLOGY METHOD 11/22/2024 4:52 PM [facility] Neutrophils Absolute 8.10(H) 1.50 - 7.00 K/mcL LAB HEMETOLOGY METHOD 11/22/2024 4:52 PM [facility] Lymphocytes Absolute 1.56 1.00 - 5.00 K/mcL LAB HEMETOLOGY METHOD 11/22/2024 4:52 PM [facility] Monocytes Absolute 0.35 0.20 - 1.00 K/mcL LAB HEMETOLOGY METHOD 11/22/2024 4:52 PM [facility] Eosinophils Absolute 0.06 0.00 - 0.50 K/mcL LAB HEMETOLOGY METHOD 11/22/2024 4:52 PM [facility] Basophils Absolute 0.04 0.00 - 0.20 K/mcL LAB HEMETOLOGY METHOD 11/22/2024 4:52 PM EST [facility] Immature Granulocytes Absolute 0.04(H) 0.00 - 0.03 K/mcL LAB HEMETOLOGY METHOD 11/22/2024 4:52 PM EST [facility] Blood Venous blood specimen / Unknown Venipuncture / Unknown 11/22/2024 4:21 PM EST 11/22/2024 4:44 PM EST us Kendall Mccabe MD LAB BLOOD ORDERABLES Final Resu lt Performing Organization Address City/[facility]/ZIP Co de Phone Number [facility] [address] [place] [address], [place] [phone] * B-type natriuretic peptide (11/22/2024 4:21 PM EST) Only the most recent of2 resultswithin the time period is included. BNP 96 <=100 pcg/mL LAB CHEMISTRY METHOD 11/22/2024 5:53 PM EST [facility] Blood Venous blood specimen / Unknown Venipuncture / Unknown 11/22/2024 4:21 PM EST 11/22/2024 4:44 PM EST us Kendall Mccabe MD LAB BLOOD ORDERABLES Final Resu lt Performing Organization Address City/[facility]/ZIP Co de Phone Number [facility] [address] [place] [address], [place] [phone] * (ABNORMAL) Magnesium (11/22/2024 4:21 PM EST) Only the most recent of2 resultswithin the time period is included. Magnesium 1.8(L) 1.9 - 2.6 mg/dL LAB CHEMISTRY METHOD 11/22/2024 5:39 PM EST [facility] Blood Venous blood specimen / Unknown Venipuncture / Unknown 11/22/2024 4:21 PM EST 11/22/2024 4:44 PM EST us Kendall Mccabe MD LAB BLOOD ORDERABLES Final Resu lt Performing Organization Address [facility] Co de Phone Number [facility] [address] [place] [address], [place] [phone] * Lipase (11/22/2024 4:21 PM EST) Only the most recent of2 resultswithin the time period is included. Pathologist [facility] Lipase 13 13 - 75 unit/L LAB CHEMISTRY METHOD 11/22/2024 5:39 PM [facility] Blood Venous blood specimen / Unknown Venipuncture / Unknown 11/22/2024 4:21 PM EST 11/22/2024 4:44 PM EST us Kendall Mccabe MD LAB BLOOD ORDERABLES Final Resu lt Performing Organization Address [facility] de Phone Number [facility] [address] [place] [address], [place] [phone] * (ABNORMAL) Comprehensive metabolic panel (11/22/2024 4:21 PM EST) Only the most recent of2 resultswithin the time period is included. Pathologist [facility] Sodium 138 133 - 145 mmol/L LAB CHEMISTRY METHOD 11/22/2024 6:19 PM [facility] Potassium 3.4(L) 3.5 - 5.5 mmol/L LAB CHEMISTRY METHOD 11/22/2024 6:19 PM [facility] Chloride 105 96 - 110 mmol/L LAB CHEMISTRY METHOD 11/22/2024 6:19 PM [facility] CO2 27 21 - 32 mmol/L LAB CHEMISTRY METHOD 11/22/2024 6:19 PM [facility] Anion Gap 6 3 - 11 LAB CHEMISTRY METHOD 11/22/2024 6:19 PM [facility] Glucose 93 70 - 100 mg/dL LAB CHEMISTRY METHOD 11/22/2024 6:19 PM [facility] BUN 11 5 - 25 mg/dL LAB CHEMISTRY METHOD 11/22/2024 6:19 PM [facility] Creatinine 0.58 0.50 - 1.10 mg/dL LAB CHEMISTRY METHOD 11/22/2024 6:19 PM [facility] eGFR 106 >=60 mL/min/1. 73m2 LAB CHEMISTRY METHOD 11/22/2024 6:19 PM [facility] Comment:Calculation based on the??Chronic Kidney Disease Epidemiology Collaboration (CKD-EPI) equation refit??without adjustment for race. BUN/Creatinine Ratio 19.0 LAB CHEMISTRY METHOD 11/22/2024 6:19 PM [facility] Calcium 9.2 8.5 - 10.5 mg/dL LAB CHEMISTRY METHOD 11/22/2024 6:19 PM [facility] AST (SGOT) 60(H) 10 - 42 unit/L LAB CHEMISTRY METHOD 11/22/2024 6:19 PM [facility] ALT (SGPT) 65(H) 10 - 60 unit/L LAB CHEMISTRY METHOD 11/22/2024 6:19 PM [facility] Alkaline Phosphatase 97 42 - 121 unit/L LAB CHEMISTRY METHOD 11/22/2024 6:19 PM [facility] Total Protein 7.6 6.0 - 8.0 g/dL LAB CHEMISTRY METHOD 11/22/2024 6:19 PM [facility] Albumin 3.7 3.2 - 5.0 g/dL LAB CHEMISTRY METHOD 11/22/2024 6:19 PM [facility] Total Bilirubin 0.6 0.0 - 1.4 mg/dL LAB CHEMISTRY METHOD 11/22/2024 6:19 PM [facility] Blood Venous blood specimen / Unknown Venipuncture / Unknown 11/22/2024 4:21 PM EST 11/22/2024 4:44 PM EST us Kendall Mccabe MD LAB BLOOD ORDERABLES Final Resu lt Performing Organization Address [facility]/ZIP Co de Phone Number [facility] [address] [place] [address], [place] [phone] * ECG-Outside (11/16/2024) us Provider Onbase MD ECG ORDERABLES Final Result * (ABNORMAL) POCT Glucose, blood (11/15/2024 3:39 PM EST) Only the most recent of7 resultswithin the time period is included. Glucose POCT 120(H) 70 - 100 mg/dL 11/15/2024 3:40 PM EST [facility] Blood Capillary blood specimen / Unknown 11/15/2024 3:39 PM EST 11/15/2024 3:41 PM EST Gurmeet Mistry MD LAB POINT OF CARE TE ST DOCKED DEVICE UNSOLICITED RESULTS Final Result Performing Organization Address [facility]/ZIP Co de Phone Number [facility] [address] [place] [address], [place] [phone] * NM LEXISCAN STRESS TEST W/ MYOCARDIAL PERFUSION (11/15/2024 12:17 PM EST) Exercise/inject ion duration (min) 0 CV PACS STRESS Exercise/inject ion duration (sec) 48 CV PACS STRESS Peak SBP 122 mmHg CV PACS STRESS Peak DBP 62 mmHg CV PACS STRESS Peak HR 90 bpm CV PACS STRESS Baseline HR 68 bpm CV PACS STRESS Baseline SBP 110 mmHg CV PACS STRESS Baseline DBP 61 mmHg CV PACS STRESS Estimated workload 1.0 METS CV PACS STRESS Percent HR 55 % CV PACS STRESS Rate Pressure Product 10,980.0 mmHg*bpm CV PACS STRESS Target HR 139 bpm CV PACS STRESS Max HR Percent 54 % CV PA CS STRESS ST Depression (mm) 0 mm CV PACS STRESS Anatomical Region Laterality Modality Nuclear Medicine 11/15/2024 10:4 6 AM EST 11/15/2024 11:35 AM EST Impressions 11/15/2024 4:23 PM EST Positive regadenoson ??stress test with nuclear imaging. ?? Nuclear imaging revealed medium sized, moderately severe ischemia of the mid inferior, mid inferoseptal, and apical inferior boo. ?? There is a normal TID ratio. Gated SPECT imaging was performed and revealed normal left ventricular systolic function and regional wall motion with an LVEF of 59%. Narrative 11/15/2024 4:23 PM EST ?Vasodilator (regadenoson) stress test was performed . ?? Normal blood pressure and heart rate response. Raw imaging reveals breast attenuation artifact of the anterior wall. The left ventricular cavity is normal (102 ml end diastolic volume). Myocardial perfusion imaging of the left ventricle reveals a medium size, moderately severe reversible defect seen at the mid inferior, mid inferoseptal, and apical inferior boo. Gated SPECT imaging was performed which demonstrated normal left ventricular systolic function. Regional wall motion is normal. The calculated LVEF is 59%. TID ratio is visually normal. Stress Findings A pharmacological stress test was performed using regadenoson, 0.4 mg IV over 10-15 seconds, followed by radiopharmacological injection 10 seconds post infusion. Total stress time was 0 min and 48 sec. The patient reached the end of the protocol. No low level exercise was used during pharmacological stress test. Blood pressure demonstrated a normal response. Heart rate demonstrated a normal response. The patient reported nausea and shortness of breath during the stress test that resolved spontaneously in early recovery. ECG 54-year-old female presenting to the ER with chest pain; found to be in atrial flutter with RVR versus SVT. She also has a history of stable anginal symptoms with chest pressure and dyspnea on exertion. Rule out ischemia. Cardiac risk factors include hypertension, hyperlipidemia, diabetes, and morbid obesity. No previous cardiac events. Baseline ECG shows sinus rhythm with frequent PVCs. Arrhythmias during stress: frequent premature ventricular contractions (PVCs) . There is no ST segment changes during stress. Arrhythmias during recovery: frequent premature ventricular contractions (PVCs). Nuclear Study Quality Study technique: MPI, SPECT, multi, rest and stress, 2 day. Overall image quality is good. CT attenuation correction was utilized. Breast attenuation The gated images were technically difficult. us Mayi Park MD CV STRESS PROCEDURES Final Resu lt * SST tube (11/15/2024 6:33 AM EST) Extra Tube Hold for add-ons. 11/15/2024 9:01 AM EST [facility] Comment:Auto resulted. Blood Venous blood specimen / Unknown Venipuncture / Unknown 11/15/2024 6:33 AM EST 11/15/2024 7:52 AM EST us Gurmeet Mistry MD LAB BLOOD ORDERABLES Final Re sult Performing Organization Address [facility] Co de Phone Number [facility] [address] [place] [address], [place] [phone] * Lavender tube (11/15/2024 6:33 AM EST) Only the most recent of2 resultswithin the time period is included. Extra Tube Hold for add-ons. 11/15/2024 9:01 AM EST [facility] Comment:Auto resulted. Blood Venous blood specimen / Unknown Venipuncture / Unknown 11/15/2024 6:33 AM EST 11/15/2024 7:52 AM EST us Gurmeet Mistry MD LAB BLOOD ORDERABLES Final Re sult Performing Organization Address [facility]/ZIP Co de Phone Number [facility] [address] [place] [address], [place] [phone] * Activated Partial Thromboplastin Time - STAT (11/14/2024 2:14 PM EST) aPTT 34.4 24.1 - 39.3 sec LAB COAGULATION METHOD 11/14/2024 3:31 PM EST [facility] Blood Venous blood specimen / Unknown Venipuncture / Unknown 11/14/2024 2:14 PM EST 11/14/2024 3:19 PM EST Anastacia Vasquez NP LAB BLOOD ORDERABLES Final Res ult Performing Organization Address City/[facility]/ZIP Co de Phone Number [facility] [address] [place] [address], [place] [phone] * Prothrombin Time with INR - STAT (11/14/2024 2:14 PM EST) [facility] Protime 12.7 10.6 - 13.9 sec LAB COAGULATION METHOD 11/14/2024 3:31 PM [facility] INR 1.0 LAB COAGULATION METHOD 11/14/2024 3:31 PM EST [facility] Blood Venous blood specimen / Unknown Venipuncture / Unknown 11/14/2024 2:14 PM EST 11/14/2024 3:19 PM EST us Anastacia Vasquez ACCOUNT SERVICES ANALYST LAB BLOOD ORDERABLES Final Res ult Performing Organization Address [facility]/ZIP Co de Phone Number [facility] [address] [place] [address], [place] [phone] * Lipid panel with reflex to direct LDL (11/14/2024 9:20 AM EST) [facility] Cholesterol 134 0 - 200 mg/dL LAB CHEMISTRY METHOD 11/14/2024 10:14 AM EST [facility] Triglycerides 85 0 - 150 mg/dL LAB CHEMISTRY METHOD 11/14/2024 10:14 AM [facility] HDL 50 >=40 mg/dL LAB CHEMISTRY METHOD 11/14/2024 10:14 AM [facility] LDL Calculated 67 0 - 100 mg/dL LAB CHEMISTRY METHOD 11/14/2024 10:14 AM [facility] VLDL Cholesterol Prudencio 17 mg/dL LAB CHEMISTRY METHOD 11/14/2024 10:14 AM EST [facility] Non HDL Chol. (LDL+VLDL) 84 <145 mg/dL LAB CHEMISTRY METHOD 11/14/2024 10:14 AM [facility] Chol/HDL Ratio 2.7 0.0 - 4.4 LAB CHEMISTRY METHOD 11/14/2024 10:14 AM EST [facility] Blood Venous blood specimen / Unknown Venipuncture / Unknown 11/14/2024 9:20 AM EST 11/14/2024 9:31 AM EST Anastacia Vasquez NP LAB BLOOD ORDERABLES Final Res ult [facility] [address] [place] [address], [place] [phone] * Creatine kinase and CKMB (11/14/2024 9:20 AM EST) Total CK 119 22 - 269 unit/L LAB CHEMISTRY METHOD 11/14/2024 10:14 AM [facility] CK-MB 2.7 1.0 - 3.6 ng/mL LAB CHEMISTRY METHOD 11/14/2024 10:14 AM [facility] CK-MB Index 0.0 0.0 - 5.0 LAB CHEMISTRY METHOD 11/14/2024 10:14 AM EST [facility] Blood Venous blood specimen / Unknown Venipuncture / Unknown 11/14/2024 9:20 AM EST 11/14/2024 9:31 AM EST Anastacia Vasquez NP LAB BLOOD ORDERABLES Final Res ult [facility] [address] [place] [address], [place] [phone] * Creatine kinase (11/14/2024 9:20 AM EST) Total CK 119 22 - 269 unit/L LAB CHEMISTRY METHOD 11/14/2024 10:14 AM EST [facility] Blood Venous blood specimen / Unknown Venipuncture / Unknown 11/14/2024 9:20 AM EST 11/14/2024 9:31 AM EST [facility] Final Res ult Performing Organization Address City/[facility]/ZIP Co de Phone Number [facility] [address] [place] [address], [place] [phone] * Ethanol (11/14/2024 9:20 AM EST) Only the most recent of2 resultswithin the time period is included. [facility] Ethanol Level 7 0 - 10 mg/dL LAB CHEMISTRY METHOD 11/14/2024 12:14 PM EST [facility] Comment:Results verified by repeat testing Blood Venous blood specimen / Unknown Venipuncture / Unknown 11/14/2024 9:20 AM EST 11/14/2024 9:31 AM EST [facility] BLOOD ORDERABLES Final Res ult Performing Organization Address [facility] Co de Phone Number [facility] [address] [place] [address], [place] [phone] * (ABNORMAL) TRANSTHORACIC ECHOCARDIOGRAM (TTE) COMPLETE W/ CONTRAST (11/14/2024 8:39 AM EST) Left Atrium Minor Paulina 5.6 cm CV PACS Left Atrium Major Paulina 5.7 cm CV PACS LA Area Sys (A2C) 18 cm2 CV PACS LA Area Sys (A4C) 16 cm2 CV PACS LA Volume (BP) 42 mL CV PACS RA Area 13.4 cm2 CV PACS RA 2D Volume 31 mL CV PACS Aortic Sinus Valsalva 3.2 cm CV PACS Ascending Aorta 3.1 cm CV PACS IVSD 1.0(A) 0.6 - 0.9 cm CV PACS LVIDD 4.4 3.8 - 5.2 cm CV PACS LVIDS 3.0 2.2 - 3.5 cm CV PACS LVOT Diameter 2.3 cm CV PACS LVPWD 1.2(A) 0.6 - 0.9 cm CV PACS MV E' Tissue Velocity Lateral 7 cm/s CV PACS MV E' Tissue Velocity Septal 6 cm/s CV PACS LVOT Area 4.2 cm2 CV PACS E Wave Deceleration Time 232 119 - 242 ms CV PACS MV Peak A Curtis 0.82 m/s CV PACS MV Peak E Curtis 0.91 m/s CV PACS RV Diastolic Basal Dimension 3.5 2.5 - 4.1 cm CV PACS E/E' Ratio Septal 15 CV PACS E/E' Ratio Averaged 14 CV PACS Relative Wall Thickness ratio 0.55 CV PACS FS 32 % CV PACS LV Mass 2D 169 g CV PACS Ascending Aorta Index 1.31 cm/m2 CV PACS RA 2D Volume Index 13 mL/m2 CV PACS LVIDD Index 1.86 cm/m2 CV PACS LVIDS Index 1.27 cm/m2 CV PACS E/A Ratio 1.1 CV PACS E/E' Ratio Lateral 13 CV PACS LA Volume Index (BP) 18 mL/m2 CV PACS LV Mass Index 2D 72 g/m2 CV PACS BSA 2.52 m2 CV PACS Anatomical Region Laterality Modality Ultrasound Narrative 11/14/2024 10:29 AM EST ?Left ventricle cavity size is normal. Left ventricle mild hypertrophy.No regional LV wall motion abnormalities noted.Left ventricular systolic function is in the low normal range with an EF of 50 to 55%. ??No obvious segmental wall motion abnormalities. ??Parameters of diastolic function are indeterminate. ?Right ventricle cavity is normal. Right ventricular systolic function is normal. ?No significant valvular disease. ??The mitral leaflets are somewhat thickened and redundant as of the chordal apparatus. ??But there is no significant stenosis or insufficiency. ?No prior echo for comparison. Left Ventricle Left ventricle cavity size is normal. There is mild hypertrophy. Systolic function is low normal with an ejection fraction of 50-55%. There are no regional LV wall motion abnormalities. Indeterminate diastolic function. Right Ventricle Right ventricle cavity appears normal. Systolic function is normal. Left Atrium Left atrium cavity size is normal. Right Atrium Right atrium cavity is normal. IVC/SVC Inferior vena cava structure is normal. Mitral Valve Mitral valve structure is normal. There is no regurgitation or stenosis. Tricuspid Valve The leaflets exhibit normal excursion. There is no regurgitation or stenosis. Aortic Valve The aortic valve is trileaflet. There is no regurgitation or stenosis. Pulmonic Valve Visualized portions of the pulmonic valve appear normal. There is no regurgitation or stenosis. Ascending Aorta The aorta appears normal in size. Pericardium Pericardium appears normal. There is no pericardial effusion. Study Details Overall the study quality was technically difficult. Definity contrast was given to enhance imaging. Gentry Block MD CV ECHO PROCEDURES Final Re sult * (ABNORMAL) C-reactive protein (11/14/2024 4:07 AM EST) [facility] C-Reactive Protein 1.96(H) <=0.50 mg/dL LAB CHEMISTRY METHOD 11/14/2024 5:19 AM EST [facility] Blood Venous blood specimen / Unknown Venipuncture / Unknown 11/14/2024 4:07 AM EST 11/14/2024 4:41 AM EST Gentry Block MD LAB BLOOD ORDERABLES Final Result [facility] [address] [place] [address], * (ABNORMAL) Basic metabolic panel (11/14/2024 4:07 AM EST) [facility] Sodium 139 133 - 145 mmol/L LAB CHEMISTRY METHOD 11/14/2024 5:14 AM EST [facility] Potassium 3.6 3.5 - 5.5 mmol/L LAB CHEMISTRY METHOD 11/14/2024 5:14 AM EST [facility] Chloride 107 96 - 110 mmol/L LAB CHEMISTRY METHOD 11/14/2024 5:14 AM [facility] CO2 27 21 - 32 mmol/L LAB CHEMISTRY METHOD 11/14/2024 5:14 AM [facility] Anion Gap 5 3 - 11 LAB CHEMISTRY METHOD 11/14/2024 5:14 AM [facility] Glucose 123(H) 70 - 100 mg/dL LAB CHEMISTRY METHOD 11/14/2024 5:14 AM [facility] BUN 12 5 - 25 mg/dL LAB CHEMISTRY METHOD 11/14/2024 5:14 AM [facility] Creatinine 0.56 0.50 - 1.10 mg/dL LAB CHEMISTRY METHOD 11/14/2024 5:14 AM [facility] eGFR 107 >=60 mL/min/1. 73m2 LAB CHEMISTRY METHOD 11/14/2024 5:14 AM [facility] Comment:Calculation based on the??Chronic Kidney Disease Epidemiology Collaboration (CKD-EPI) equation refit??without adjustment for race. BUN/Creatinine Ratio 21.4 LAB CHEMISTRY METHOD 11/14/2024 5:14 AM [facility] Calcium 9.1 8.5 - 10.5 mg/dL LAB CHEMISTRY METHOD 11/14/2024 5:14 AM [facility] Blood Venous blood specimen / Unknown Venipuncture / Unknown 11/14/2024 4:07 AM EST 11/14/2024 4:41 AM EST us Gentry Block MD LAB BLOOD ORDERABLES Final Result [facility] [address] [place] [address], * (ABNORMAL) Urinalysis with reflex microscopic and culture (11/14/2024 1:38 AM EST) Specific [place] Urine 1.033(H) 1.003 - 1.030 LAB URINALYSIS - AUTOMATED METHOD 11/14/2024 2:16 AM [facility] pH, Urine 6.5 5.0 - 8.0 pH LAB URINALYSIS - AUTOMATED METHOD 11/14/2024 2:16 AM [facility] Leukocytes, Urine Small(A) Negative LAB URINALYSIS - AUTOMATED METHOD 11/14/2024 2:16 AM [facility] Nitrite, Urine Negative Negative LAB URINALYSIS - AUTOMATED METHOD 11/14/2024 2:16 AM [facility] Protein, Urine 30(A) <=Trace mg/dL LAB URINALYSIS - AUTOMATED METHOD 11/14/2024 2:16 AM [facility] Glucose, Urine Negative Negative mg/dL LAB URINALYSIS - AUTOMATED METHOD 11/14/2024 2:16 AM [facility] Ketones, Urine 15(A) Negative mg/dL LAB URINALYSIS - AUTOMATED METHOD 11/14/2024 2:16 AM [facility] Urobilinogen, Urine 1.0 0.2 - 1.0 mg/dL LAB URINALYSIS - AUTOMATED METHOD 11/14/2024 2:16 AM [facility] Bilirubin, Urine Negative Negative LAB URINALYSIS - AUTOMATED METHOD 11/14/2024 2:16 AM [facility] Blood, Urine Trace(A) Negative LAB URINALYSIS - AUTOMATED METHOD 11/14/2024 2:16 AM [facility] RBC, Urine 10(H) 0 - 4 /HPF LAB URINALYSIS - AUTOMATED METHOD 11/14/2024 2:16 AM [facility] WBC, Urine 35.6(H) 0 - 4 /HPF LAB URINALYSIS - AUTOMATED METHOD 11/14/2024 2:16 AM [facility] Bacteria, Urine Few(A) Negative /HPF LAB URINALYSIS - AUTOMATED METHOD 11/14/2024 2:16 AM [facility] Hyaline Casts, Urine 10.0(H) 0 - 3 /LPF LAB URINALYSIS - AUTOMATED METHOD 11/14/2024 2:16 AM EST [facility] Urine Urine specimen obtained by clean catch procedure / Unknown Non-blood Collection / Unknown 11/14/2024 1:38 AM EST 11/14/2024 1:51 AM EST Gentry Block MD LAB URINE ORDERABLES Final Result Performing Organization Address [facility]/ZIP Co de Phone Number [facility] [address] [place] [address], [place] [phone] * [place] urine culture tube (11/14/2024 1:38 AM EST) Extra Tube Hold for add-ons. 11/14/2024 3:08 AM EST [facility] Comment:Auto resulted. Urine Urine specimen obtained by clean catch procedure / Unknown Non-blood Collection / Unknown 11/14/2024 1:38 AM EST 11/14/2024 1:51 AM EST Gentry Block MD LAB URINE ORDERABLES Final Result Performing Organization Address [facility] Co de Phone Number [facility] [address] [place] [address], [place] [phone] * Drug abuse screen 8a panel, urine (11/14/2024 1:38 AM EST) Amphetamine Screen, Ur Negative Negative LAB CHEMISTRY METHOD 11/14/2024 3:46 AM EST [facility] Comment:Certain OTC medicati ons containing ephedrine, phenylephrine, pseudoephedrine and phenylpropanolamine can cause false positive results. Barbiturate Screen, Ur Negative Negative LAB CHEMISTRY METHOD 11/14/2024 3:46 AM EST [facility] Benzodiazepine Screen, Ur Negative Negative LAB CHEMISTRY METHOD 11/14/2024 3:46 AM EST [facility] Cocaine Screen, Ur Negative Negative LAB CHEMISTRY METHOD 11/14/2024 3:46 AM [facility] Opiate Screen, Ur Negative Negative LAB CHEMISTRY METHOD 11/14/2024 3:46 AM [facility] Cannabinoid (THC) Screen, Ur Negative Negative LAB CHEMISTRY METHOD 11/14/2024 3:46 AM [facility] Comment:Specimens from patie nts taking pantoprazole sodium (Protonix) have been shown to produce false positive results. Oxycodone Screen, Ur Negative Negative LAB CHEMISTRY METHOD 11/14/2024 3:46 AM [facility] Fentanyl, Ur Negative Negative LAB CHEMISTRY METHOD 11/14/2024 3:46 AM [facility] Urine Urine specimen obtained by clean catch procedure / Unknown Non-blood Collection / Unknown 11/14/2024 1:38 AM EST 11/14/2024 1:51 AM EST [facility] - 11/14/2024 3:46 AM EST Assay cutoffs: Amphetamines ? 1000 ng/mL Barbiturates ?200 ng/mL Benzodiazepines ?? 200 ng/mL Cocaine ? 300 ng/mL Fentanyl ?1 ng/mL Opiates ? 300 ng/mL Oxycodone ? 100 ng/mL THC ?50 ng/mL Semi-quantitative assay for screening purposes only. Unconfirmed screening result should not be used for non-medical purposes. *ALTERNATE METHOD CONFIRMATION DONE UPON REQUEST ONLY* us Gentry Block MD LAB URINE ORDERABLES Final Result [facility] [address] [place] [address], * HCG qualitative, urine (11/14/2024 1:38 AM EST) Preg Test, Ur Negative Negative 11/14/2024 1:59 AM EST [facility] Urine Urine specimen obtained by clean catch procedure / Unknown Non-blood Collection / Unknown 11/14/2024 1:38 AM EST 11/14/2024 1:51 AM EST us Gentry Block MD LAB URINE ORDERABLES Final Result Performing Organization Address [facility] Phone Number [facility] [address] [place] [address], [place] [phone] * Culture urine (11/14/2024 1:38 AM EST) Pathologist [facility] Culture, Urine >100,000 CFU/mL Mixed bacterial morphotypes present suggestive of possible contamination during collection. Suggest appropriate recollection if clinically indicated. 11/15/2024 8:04 AM EST [facility] Urine Urine specimen obtained by clean catch procedure / Unknown Non-blood Collection / Unknown 11/14/2024 1:38 AM EST 11/14/2024 2:16 AM EST us Gentry Block MD LAB MICROBIOLOGY - GENERAL ORDERABLES Final Result Performing Organization Address [facility] Phone Number [facility] [address] [place] [address], [place] [phone] * XR Chest 1 View (11/13/2024 8:32 PM EST) Anatomical Region Laterality Modality Body Radiographic Fatmata ging 11/14/2024 8:39 AM EST Impressions 11/14/2024 8:40 AM EST Limited study. ??No focal pneumonia or alveolar edema. -------- FINAL REPORT -------- Dictated By: Vinayak Baez Dictated Date: 11/14/2024 08:39 ET Assigned Physician: Vinayak Baez Reviewed and Electronically Signed By: Vinayak Baez Signed Date: 11/14/2024 08:40 ET Workstation ID: [id number] Transcribed By: Self Edit Transcribed Date: 11/14/2024 08:39 ET Narrative 11/14/2024 8:40 AM EST EXAMINATION: CHEST CLINICAL INFORMATION: Chest pain COMPARISON: Frontal view 04/12/2021 TECHNIQUE: Frontal portable sitting view of the chest FINDINGS: Multiple devices overlie the patient. ??There is rotation to the right. There is no mediastinal or hilar mass. ??No edema. There is hypoinflation. ??No dense focal pneumonia. ??There is elevation of the right hemidiaphragm. No significant pleural fluid or pneumothorax. Procedure Note Vinayak Baez MD - 11/14/2024 EXAMINATION: CHEST CLINICAL INFORMATION: Chest pain COMPARISON: Frontal view 04/12/2021 TECHNIQUE: Frontal portable sitting view of the chest FINDINGS: Multiple devices overlie the patient. There is rotation to the right. There is no mediastinal or hilar mass. No edema. There is hypoinflation. No dense focal pneumonia. There is elevation ofthe right hemidiaphragm. No significant pleural fluid or pneumothorax. IMPRESSION: Limited study. No focal pneumonia or alveolar edema. -------- FINAL REPORT -------- Dictated By: Vinayak Baez Dictated Date: 11/14/2024 08:39 ET Assigned Physician: Vinayak Baez Reviewed and Electronically Signed By: Vinayak Baez Signed Date: 11/14/2024 08:40 ET Workstation ID: [id number] Transcribed By: Self Edit Transcribed Date: 11/14/2024 08:39 ET us Sondra Hermosillo DO IMG XR PROCEDURES Final R esult * Thyroid stimulating hormone with reflex to free t4 and free t3 (TSH Reflex) (11/13/2024 7:11 PM EST) TSH 1.23 0.40 - 4.00 mcIU/mL LAB CHEMISTRY METHOD 11/13/2024 8:12 PM EST [facility] Blood Venous blood specimen / Unknown Venipuncture / Unknown 11/13/2024 7:11 PM EST 11/13/2024 7:17 PM EST Sondra Heromsillo DO LAB BLOOD ORDERABLES Mami fiore Result JULIO CESAR [facility] ([facility]) [facility] [address] [place] [address], [place] [phone] from Last 3 Months Insurance [facility] MEDIC[facility] Member Subscriber Plan / Payer (Ef fective 2022-Present) Name:Petrona Sanchez Relation to Subscriber:Self Name:Petrona Sanchez Payer ID:[id number] Group ID:[id number] Type:Not on file Address: [place] [address] [address] [id number] Advance Directives * Full Code - Default (Latest Code Status on File) Date Activated Date Inactivated Comments 11/14/2024 1:29 AM 11/15/2024 7:23 PM This is orde r is used when code status has not been discussed with the patient, or code status is otherwise unknown/unconfirmed To update the patient's code status, place a code status order. Do not modify or discontinue any currently active code status orders. Care Teams Bread Distributor Relationship Specialty Start Date End Date Casi Tapia MD [address] [place] [id number] PCP - General Internal Medicine 02/28/19
--- OUTSIDE RECORDS SUMMARY | 2025-01-27 13:29 | XMS_ITS | Clinical Summary ---
Author Organization [facility] Address [address] [place] [address] Care Team Providers Care Belt Picker Name Role Phone Casi Tapia MD Primary Care Provider [phone] Allergies No known active allergies Medications Medication Sig Dispensed Refills Start Date End Date Status albuterol (PROVENTIL) (2.5 MG/3ML) 0.083% nebulizer solution Inhale 1 vial into the lungs. 0 Active ASPIRIN LOW DOSE 81 MG chewable tablet Chew 81 mg by mouth daily. 0 08/05/2020 Active buPROPion (WELLBUTRIN SR) 150 MG 12 hr tablet Take 150 mg by mouth. 0 Active Diclofenac Sodium 1 % GEL APPLY TO AFFECTED AREA TWICE A DAY DIRECTED 0 10/02/2020 Active estradiol (ESTRACE) 1 MG tablet Take 1 mg by mouth daily. 0 10/15/2020 Active ferrous sulfate 325 (65 FE) MG tablet Take by mouth. 0 Act jaziel BREO ELLIPTA 200-25 MCG/INH AEPB INHALE 1 PUFF ONCE A DAY 0 09/24/2020 Active COPAXONE 40 MG/ML SOSY injection 0 10/21/2020 Active medroxyPROGESTERone (PROVERA) 5 MG tablet TAKE ONE TABLET BY MOUTH EVERY DAY 21 DAYS ON AND SEVEN DAYS OFF 0 09/04/2020 Active metFORMIN (GLUCOPHAGE) tablet 500 mg TAKE 1 TABLET BY MOUTH EVERY DAY WITH A MEAL 0 10/07/2020 Active omeprazole (PriLOSEC) 20 MG capsule Take 20 mg by mouth daily. 0 10/04/2020 Active amLODIPine-atorvastat in (CADUET) 10-10 MG per tablet Take 1 tablet by mouth daily. 0 Active amitriptyline (ELAVIL) tablet 25 mg TAKE 2 TABLETS BY MOUTH AT BEDTIME 0 01/01/2021 Active ergocalciferol (VITAMIN D2) capsule 30772 units TAKE 1 CAPSULE BY MOUTH ONE TIME PER WEEK 0 11/26/2020 Active buPROPion (ZYBAN) 150 MG 12 hr tablet Take 150 mg by mouth 2 (two) times a day. 0 04/09/2021 Active cyclobenzaprine (FLEXERIL) 5 MG tablet TAKE 1 TABLET BY MOUTH AT BEDTIME NEEDED 0 04/23/2021 Active naproxen (NAPROSYN) 500 MG tablet TAKE 1 TABLET BY MOUTH EVERY 12 HOURS. TAKE WITH FOOD OR MILK 0 04/23/2021 Active Active Problems Problem Noted Date Diagnosed Date Arthritis of knee, right 10/29/2020 Social History Tobacco Use Types Packs/Day Years Used Date Smoking Tobacco: Never Assessed Sex and Gender Information Value Date Recorded Sex Assigned at Not on file Gender Identity Not on file Sexual Orientation Not on file Job Start Date Occupation Industry Not on file Not on file Not on file Last Filed Vital Signs Vital Sign Reading Time Taken Comments Blood Pressure - - Pulse - - Temperature - - Respiratory Rate - - Oxygen Saturation - - Inhaled Oxygen Concentration - - Weight 127 kg (280 lb) 04/30/2021 8:25 AM EDT Height 160 cm (5' 3 ) 04/30/2021 8:25 AM EDT Body Mass Index 49.6 04/30/2021 8:25 AM EDT Plan of Treatment Health Maintenance Due Date Last Done Comments Hepatitis B Vaccines (1 of 3 - 3-dose series) 1968 Hepatitis C Screening 1968 COVID-19 Vaccine (#1) 1968 Pneumococcal Vaccine (1 of 2 - PCV) 1974 Depression Screening 1980 BMI Counseling 1986 Preventative Health Evaluation 1986 DTap / Tdap / Td (1 - Tdap) 1987 Cervical Cancer Screening (P ap Smear) 1989 Colon Cancer Screening (Colonoscopy) 2013 Breast Cancer Screening (Mammogram) 2018 Shingrix-Zoster Vaccine (1 of 2) 2018 Influenza Vaccine (#1) 2024 RSV Ped < 20 months Aged Out No longe r eligible based on patient's age to complete this topic Care Teams Belt Picker Relationship Specialty Start Date End Date Csai Tapia MD [address] [place] [address] PCP - General Internal Medicine 09/08/20
--- OUTSIDE RECORDS SUMMARY | 2025-01-27 13:29 | XMS_ITS | Patient Health Record ---
Author Organization [facility] Address [address] [place] [address] Care Team Providers Care Ent Surgeon Name Role Phone CRESENCIO FREEMAN Primary Care Provider NISHANT TAPIA Unavailable [phone] JUAN F WATSON Unavailable [phone] ALLERGIES No Known Allergies RESULTS Component Value Reference Range Notes BASIC METABOLIC PANEL Reviewed date:11/22/2024 11:27:04 AM Interpretation: Performing Lab: Notes/Report: Sodium 139 133-145 mmol/L Potassium 3.6 3.5-5.5 mmol/L Chloride 107 96-110 mmol/L CO2 27 21-32 mmol/L Anion Gap 5 3-11 Glucose 123 70-100 mg/dL BUN 12 5-25 mg/dL Creatinine 0.56 0.50-1.10 mg/dL eGFR 107 >=60 mL/min/1.73m2 Calculation based on the Chronic Kidney Disease Epidemiology Collaboration (CKD-EPI) equation refit without adjustment for race. BUN/Creatinine Ratio 21.4 Calcium 9.1 8.5-10.5 mg/dL CBC WITH AUTO DIFFERENTIAL Reviewed date:11/22/2024 10:45:43 AM Interpretation: Performing Lab: Notes/Report: WBC 9.4 4.8-10.8 K/mcL RBC 4.30 3.80-4.80 M/mcL Hemoglobin 13.4 11.5-16.0 g/dL Hematocrit 40.6 35.0-47.0 % MCV 93.8 79.0-98.0 FL MCH 30.9 27.0-32.0 pcg MCHC 33.0 32.0-37.0 g/dL RDW 13.3 11.0-15.0 % Platelets 304 130-400 K/mcL MPV 11.0 7.0-11.0 FL NRBC 0.0 <1.0 % NRBC Absolute 0.00 <0.10 K/mcL Neutrophils Relative 71.3 Lymphocytes Relative 21.4 Monocytes Relative 5.6 Eosinophils Relative 0.9 Basophils Relative 0.5 Immature Granulocytes Relative 0.3 Neutrophils Absolute 6.68 1.50-7.00 K/mcL Lymphocytes Absolute 2.00 1.00-5.00 K/mcL Monocytes Absolute 0.52 0.20-1.00 K/mcL Eosinophils Absolute 0.08 0.00-0.50 K/mcL Basophils Absolute 0.05 0.00-0.20 K/mcL Immature Granulocytes Absolute 0.03 0.00-0.03 K/mcL CBC WITH AUTO DIFFERENTIAL Reviewed date:07/31/2024 11:43:58 AM Interpretation: Performing Lab: Notes/Report: WBC 9.8 4.8-10.8 K/mcL RBC 4.60 3.80-4.80 M/mcL Hemoglobin 13.9 11.5-16.0 g/dL Hematocrit 43.4 35.0-47.0 % MCV 94.6 79.0-98.0 FL MCH 30.3 27.0-32.0 pcg MCHC 32.0 32.0-37.0 g/dL RDW 13.6 11.0-15.0 % Platelets 299 130-400 K/mcL MPV 11.3 7.0-11.0 FL NRBC 0.0 <1.0 % NRBC Absolute 0.00 <0.10 K/mcL Neutrophils Relative 78.7 Lymphocytes Relative 15.5 Monocytes Relative 3.6 Eosinophils Relative 1.4 Basophils Relative 0.5 Immature Granulocytes Relative 0.3 Neutrophils Absolute 7.74 1.50-7.00 K/mcL Lymphocytes Absolute 1.53 1.00-5.00 K/mcL Monocytes Absolute 0.35 0.20-1.00 K/mcL Eosinophils Absolute 0.14 0.00-0.50 K/mcL Basophils Absolute 0.05 0.00-0.20 K/mcL Immature Granulocytes Absolute 0.03 0.00-0.03 K/mcL LIPID PANEL WITH REFLEX TO D IRECT LDL Reviewed date:07/31/2024 01:27:40 PM Interpretation: Performing Lab: Notes/Report: Cholesterol 145 0-200 mg/dL Triglycerides 91 0-150 mg/dL HDL 51 >=40 mg/dL LDL Calculated 76 0-100 mg/dL VLDL Cholesterol Prudencio 18.2 Non HDL Chol. (LDL+VLDL) 94 <145 mg/dL Chol/HDL Ratio 2.8 0.0-4.4 LIPID PANEL WITH REFLEX TO D IRECT LDL Reviewed date:11/22/2024 10:45:43 AM Interpretation: Performing Lab: Notes/Report: Cholesterol 134 0-200 mg/dL Triglycerides 85 0-150 mg/dL HDL 50 >=40 mg/dL LDL Calculated 67 0-100 mg/dL VLDL Cholesterol Prudencio 17 Non HDL Chol. (LDL+VLDL) 84 <145 mg/dL Chol/HDL Ratio 2.7 0.0-4.4 VITAMIN D 25 HYDROXY Reviewed date:07/31/2024 01:27:40 PM Interpretation: Performing Lab: Notes/Report: Vit D, 25-Hydroxy 54.2 30.0-80.0 ng/mL THYROID STIMULATING HORMONE Reviewed date:07/31/2024 01:27:40 PM Interpretation: Performing Lab: Notes/Report: TSH 1.83 0.40-4.00 mcIU/mL COMPREHENSIVE METABOLIC PANE L Reviewed date:07/31/2024 01:28:34 PM Interpretation: Performing Lab: Notes/Report: Sodium 139 133-145 mmol/L Potassium 4.0 3.5-5.5 mmol/L Chloride 101 96-110 mmol/L CO2 29 21-32 mmol/L Anion Gap 9 3-11 Glucose 134 70-100 mg/dL BUN 10 5-25 mg/dL Creatinine 0.66 0.50-1.10 mg/dL eGFR 103 >=60 mL/min/1.73m2 Calculation based on the?Chronic Kidney Disease Epidemiology Collaboration (CKD-EPI) equation refit?without adjustment for race. BUN/Creatinine Ratio 15.2 Calcium 9.7 8.5-10.5 mg/dL AST (SGOT) 44 10-42 unit/L ALT (SGPT) 64 10-60 unit/L Alkaline Phosphatase 103 42-121 unit/L Total Protein 7.6 6.0-8.0 g/dL Albumin 3.6 3.2-5.0 g/dL Total Bilirubin 0.7 0.0-1.4 mg/dL PROTHROMBIN TIME WITH INR Reviewed date:11/22/2024 10:45:43 AM Interpretation: Performing Lab: Notes/Report: Protime 12.7 10.6-13.9 sec INR 1.0 URINALYSIS WITH REFLEX MICRO SCOPIC AND CULTURE Reviewed date:11/22/2024 11:27:04 AM Interpretation: Performing Lab: Notes/Report: Specific Jupiter Urine 1.033 1.003-1.030 pH, Urine 6.5 5.0-8.0 pH Leukocytes, Urine Small Negative Nitrite, Urine Negative Negative Protein, Urine 30 <=Trace mg/dL Glucose, Urine Negative Negative mg/dL Ketones, Urine 15 Negative mg/dL Urobilinogen, Urine 1.0 0.2-1.0 mg/dL Bilirubin, Urine Negative Negative Blood, Urine Trace Negative RBC, Urine 10 0-4 /HPF WBC, Urine 35.6 0-4 /HPF Bacteria, Urine Few Negative /HPF Hyaline Casts, Urine 10.0 0-3 /LPF HEMOGLOBIN A1C Reviewed date:07/31/2024 01:27:40 PM Interpretation: Performing Lab: Notes/Report: Hemoglobin A1C 6.3 <6.5 % Mean Bld Glu Estim. 134 ACTIVATED PARTIAL THROMBOPLA STIN TIME Reviewed date:11/22/2024 10:45:43 AM Interpretation: Performing Lab: Notes/Report: aPTT 34.4 24.1-39.3 sec URINALYSIS WITH REFLEX MICRO SCOPIC Reviewed date:07/31/2024 11:44:08 AM Interpretation: Performing Lab: Notes/Report: Specific Jupiter Urine 1.022 1.003-1.030 pH, Urine 8.0 5.0-8.0 pH Leukocytes, Urine Moderate Negative Nitrite, Urine Negative Negative Protein, Urine Trace <=Trace mg/dL Glucose, Urine Negative Negative mg/dL Ketones, Urine Negative Negative mg/dL Urobilinogen, Urine 0.2 0.2-1.0 mg/dL Bilirubin, Urine Negative Negative Blood, Urine Small Negative POCT GLUCOSE, BLOOD Reviewed date:11/22/2024 11:27:04 AM Interpretation: Performing Lab: Notes/Report: Glucose POCT 102 70-100 mg/dL POCT GLUCOSE, BLOOD Reviewed date:11/29/2024 08:26:03 AM Interpretation: Performing Lab: Notes/Report: Glucose POCT 184 70-100 mg/dL POCT GLUCOSE, BLOOD Reviewed date:11/22/2024 10:51:14 AM Interpretation: Performing Lab: Notes/Report: Glucose POCT 139 70-100 mg/dL POCT GLUCOSE, BLOOD Reviewed date:11/22/2024 10:51:26 AM Interpretation: Performing Lab: Notes/Report: Glucose POCT 120 70-100 mg/dL POCT GLUCOSE, BLOOD Reviewed date:11/22/2024 10:51:26 AM Interpretation: Performing Lab: Notes/Report: Glucose POCT 145 70-100 mg/dL POCT GLUCOSE, BLOOD Reviewed date:11/22/2024 10:51:26 AM Interpretation: Performing Lab: Notes/Report: Glucose POCT 123 70-100 mg/dL POCT GLUCOSE, BLOOD Reviewed date:11/22/2024 11:37:14 AM Interpretation: Performing Lab: Notes/Report: Glucose POCT 120 70-100 mg/dL C-REACTIVE PROTEIN Reviewed date:11/22/2024 11:27:04 AM Interpretation: Performing Lab: Notes/Report: C-Reactive Protein 1.96 <=0.50 mg/dL CREATINE KINASE Reviewed date:11/22/2024 10:45:43 AM Interpretation: Performing Lab: Notes/Report: Total CK 119 22-269 unit/L XR CHEST 1 VIEW Reviewed date:11/22/2024 10:46:34 AM Interpretation: Performing Lab: Notes/Report: Note See Note [facility], a member of [employer] Patient Name: PETRONA PARDO Date of : 1970 Reason for Exam: chest pain Exam Date: 11/13/202420231123 EST Report Status: Final Ordering Provider: DELIO YIP PCP: NISHATN TAPIA EXAMINATION: CHEST CLINICAL INFORMATION: Chest pain COMPARISON: Frontal view 04/12/2021 TECHNIQUE: Frontal portable sitting view of the chest FINDINGS: Multiple devices overlie the patient. There is rotation to the right. There is no mediastinal or hilar mass. No edema. There is hypoinflation. No dense focal pneumonia. There is elevation of the right hemidiaphragm. No significant pleural fluid or pneumothorax. IMPRESSION: Limited study. No focal pneumonia or alveolar edema. -------- FINAL REPOR T -------- Dictated By: Vinayak Baez Dictated Date: 11/14/2024 08:39 ET Assigned Physician: Vinayak Baez Reviewed and Electronically Signed By: Vinayak Baez Signed Date: 11/14/2024 08:40 ET Workstation ID: [id number] Transcribed By: Self Edit Transcribed Date: 11/14/2024 08:39 ET TROPONIN I HIGH SENSITIVITY Reviewed date:11/22/2024 11:27:04 AM Interpretation: Performing Lab: Notes/Report: High levels of biotin in samples may falsely decrease hsTroponin values. Use caution when interpreting hsTroponin results in patients taking biotin who exhibit renal impairment (eGFR <60) or in patients taking more than 20 mg/day of biotin. High Sensitivity Troponin I 183 <=54 ng/L TROPONIN I HIGH SENSITIVITY Reviewed date:11/22/2024 10:51:26 AM Interpretation: Performing Lab: Notes/Report: High levels of biotin in samples may falsely decrease hsTroponin values. Use caution when interpreting hsTroponin results in patients taking biotin who exhibit renal impairment (eGFR <60) or in patients taking more than 20 mg/day of biotin. High Sensitivity Troponin I 71 <=54 ng/L ETHANOL Reviewed date:11/22/2024 10:45:43 AM Interpretation: Performing Lab: Notes/Report: Ethanol Level 7 0-10 mg/dL Results verifi ed by repeat testing CREATINE KINASE AND CKMB Reviewed date:11/22/2024 10:45:43 AM Interpretation: Performing Lab: Notes/Report: Total CK 119 22-269 unit/L CK-MB 2.7 1.0-3.6 ng/mL CK-MB Index 0.0 0.0-5.0 DRUG ABUSE SCREEN 8A PANEL, URINE Reviewed date:11/22/2024 10:45:43 AM Interpretation: Performing Lab: Notes/Report: Assay cutoffs: Amphetamines 1000 ng/mL Barbiturates 200 ng/mL Benzodiazepines 200 ng/mL Cocaine 300 ng/mL Fentanyl 1 ng/mL Opiates 300 ng/mL Oxycodone 100 ng/mL THC 50 ng/mL Semi-quantitative assay for screening purposes only. Unconfirmed screening result should not be used for non-medical purposes. *ALTERNATE METHOD CONFIRMATION DONE UPON REQUEST ONLY* Amphetamine Screen, Ur Negative Negative Certa in OTC medications containing ephedrine, phenylephrine, pseudoephedrine and phenylpropanolamine can cause false positive results. Barbiturate Screen, Ur Negative Negative Benzodiazepine Screen, Ur Negative Negative Cocaine Screen, Ur Negative Negative Opiate Screen, Ur Negative Negative Cannabinoid (THC) Screen, Ur Negative Negative Specimens from patie nts taking pantoprazole sodium (Protonix) have been shown to produce false positive results. Oxycodone Screen, Ur Negative Negative Fentanyl, Ur Negative Negative HCG QUALITATIVE, URINE Reviewed date:11/22/2024 10:45:43 AM Interpretation: Performing Lab: Notes/Report: Preg Test, Ur Negative Negative REASON FOR REFERRAL Reason Pt needing cardiolog y referral Diagnosis 1 New onset a-fib (I48 .91) Diagnosis 2 History of non-ST el evation myocardial infarction (NSTEMI) (I25.2) Referral Organization [facility] Referring Provider First Name NISHANT Referring Provider Last Name CORINE Referring Provider Speciality Internal M edicine Referred Provider Dandy Brady Referred Provider Specialty Cardiology General Notes fax- . , [facility] [address] [place] [address], [address] [place] [address] , , , phone - Clinical Notes Lluvia Bui 11/22 11:28:51 AM >, faxed to both fax numbers Referral Priority Routine MEDICATIONS Medication SIG (Take, Route, Frequency, Duration) Notes Start Date End Date Status Metoprolol Succinate ER 25 MG 1 tablet Orally Once a day Active Atorvastatin Calcium 20 MG 1 tablet Orally Once a day Active Phentermine HCl 15 MG 1 capsule Orally Once a day for 30 days Active Eliquis 5 MG as directed Orally Active Cyclobenzaprine HCl 5 MG TAKE 1 TABLET B Y MOUTH EVERY DAY AT BEDTIME NEEDED FOR 30 DAYS for 30 Active Ozempic (2 MG/DOSE) 8 MG/3ML INJECT 2MG SUBCUTANEOUS WEEKLY 30 DAYS for 84 Active Copaxone 40 MG/ML 1 ml Subcutaneous as directed for 30 day(s) Monday, Monday, Monday Active amLODIPine Besylate 2.5 MG TAKE 1 TABLET BY MOUTH EVERY DAY for 90 Active Trelegy Ellipta 200-62.5-25 MCG/ACT INHALE 1 PUFF INTO THE LUNGS EVERY DAY FOR 30 DAYS for 30 Active Aspirin 81 81 MG 1 tablet Orally Once a day for 90 days Active Vitamin D3 1.25 MG (04946 UT) 1 capsule Orally once weekly for 90 days 08/14/2023 Active Omeprazole 20 MG TAKE 1 CAPSULE BY MOUTH 30 MINUTES BEFORE MORNING MEAL EVERY DAY FOR 30 DAYS for 30 Active metFORMIN HCl 500 MG TAKE 1 TABLET BY MOUTH EVERY DAY WITH A MEAL for 90 Active buPROPion HCl ER (Smoking Det) 150 MG TAKE 1 TABLET BY MOUTH TWICE A DAY for 30 Active Diclofenac Sodium 1 % APPLY DIRECTED TO AFFECTED AREA EXTERNALLY NEEDED 30 DAYS for 30 Active Mounjaro 2.5 MG/0.5ML 2.5mg Subcutaneous weekly for 30 days Active Ferrous Sulfate 325 (65 Fe) MG 1 tablet Orally Once a day for 90 days Active Ozempic (1 MG/DOSE) 4 MG/3ML 1mg Subcutaneous weekly for 30 days Active IMMUNIZATIONS Vaccine Route Administration Date Status Comme nts Flu vaccine no Preserv 3 and > IM Intramuscular 06/20/2018 Administered influenza IM Intramuscular 08/20/2021 Administered influenza IM Intramuscular 09/07/2023 Administered Influenza, high dose seasonal IM Intramuscular 05/29/2019 Administered Influenza, seasonal, injectable, 6-35 months Unknown 08/17/2007 Administered Moderna Covid-19 Vaccine IM Intramuscular 12/09/2020 Admin istered Moderna Covid-19 Vaccine IM Intramuscular 01/13/2021 Admin istered Moderna Covid-19 Vaccine Unknown 09/26/2021 Administere d Moderna Covid-19 Vaccine Unknown 05/17/2022 Administere d Pneumococcal polysaccharide PPV23 Unknown 08/17/2007 Administered SOCIAL HISTORY Tobacco Use: Social History Observation Description Date Details (start date - stop date) Never Smoker NA - NA Sex Assigned At : Social History Observation Description Sex Assigned At Unknown Tobacco Use/Smoking Question Answer Notes Are you a nonsmoker PROBLEMS Problem Type ICD Code Onset Dates Problem Status W/U Status Risk SNOMED Code Notes Problem Essential (primary) hypertension (I10) Active confirmed Essential hypertension (22087677) Problem Unsteady gait (R26.81) Active confirmed 43470490 Problem Morbid obesity (E66.01) Active confirmed 332731078 Problem Arthritis (M19.90) Active confirmed 372 3001 Problem Breast cancer screening by mammogram (Z12.31) Active confirmed Problem Iron deficiency anemia due to chronic blood loss (D50.0) Active confirmed 694930898 Problem Chronic anticoagulation (Z79.01) Active confirmed 703157776 Problem Type 2 diabetes mellitus without complication, without long-term current use of insulin (E11.9) Active confirmed 24102389 Problem BMI 50.0-59.9, adult (Z68.43) Active confirmed Body mass ind ex 40+ - severely obese (958629599) Problem Moderate persistent asthma without complication (J45.40) Active confirmed 791898876 Problem GERD without esophagitis (K21.9) Active confirmed 610762476 Problem KARLENE on CPAP (G47.33) Active confirmed 22944770 Problem Episodic migraine (G43.909) Active confirmed 085394652073606 Problem Anxiety, generalized (F41.1) Active confirmed 34050262 Problem New onset a-fib (I48.91) Active confirmed 85103885 Problem Hx of non-ST elevation myocardial infarction (NSTEMI) (I25.2) Active confirmed 774256179 VITAL SIGNS Heart Rate 68 /min 12/03/2024 Blood pressure diastolic 86 mm Hg 12/03/2024 Oximetry 99 % 12/03/2024 Height 63 in 12/03/2024 Blood pressure systolic 126 mm Hg 12/03/2024 Weight 306 lbs 12/03/2024 BMI 54.2 kg/m2 12/03/2024 Encounters Encounter Location Date Provider Diagnosis [facility] [address] [address] 06/10/2024 FREEMAN DUPONT Mild persistent asth ma with acute exacerbation J45.31 [facility] [address] [address] 08/05/2024 FREEMAN DUPONT Annual physical exam Z00.00 ; Encounter for screening for depression Z13.31 ; Encounter for screening for other disorder Z13.89 ; Advance care planning Z71.89 ; Morbid obesity E66.01 ; BMI 50.0-59.9, adult Z68.43 ; Essential (primary) hypertension I10 ; Prediabetes R73.03 and Breast cancer screening by mammogram Z12.31 [address] [facility] [address] [place] [address] 11/22/2024 JUAN F WATSON Hx of non-ST elevati on myocardial infarction (NSTEMI) I25.2 ; New onset a-fib I48.91 ; Essential (primary) hypertension I10 ; Type 2 diabetes mellitus without complication, without long-term current use of insulin E11.9 ; Episodic migraine G43.909 ; Moderate persistent asthma without complication J45.40 ; Iron deficiency anemia due to chronic blood loss D50.0 ; Multiple sclerosis G35 ; KARLENE on CPAP G47.33 ; Anxiety, generalized F41.1 ; GERD without esophagitis K21.9 and Ar[address] M19[address] [facility] [address] [facility] [address] [facility] [address] [place] [address] 12/03/2024 FREEMAN DUPONT New onset a-fib I48. 91 ; Hx of non-ST elevation myocardial infarction (NSTEMI) I25.2 ; Chronic anticoagulation Z79.01 ; Morbid obesity E66.01 ; BMI 50.0-59.9, adult Z68.43 ; Essential (primary) hypertension I10 ; Prediabetes R73.03 ; Unsteady gait R26.81 and Breast cancer screening by mammogram Z12.31 [facility] [address] [place] [address] 02/13/2024 NISHANT TAPIA [facility] [address] [facility] [address] [address] 06/10/2024 FREEMAN DUPONT [address] [facility] [address] [facility] [address] [place] [address] 08/06/2024 NISHANT TAPIA Positive colorectal cancer screening using Cologuard test R19.5 [address] [facility] [address] [facility] [address] [place] [address] 08/28/2024 FREEMAN DUPONT [facility] [address] [facility] [address] [address] 11/21/2024 NISHANT TAPIA [facility] [address] [facility] [address] [address] 11/26/2024 NISHANT TAPIA [facility] [address] [facility] [address] [address] 11/22/2024 FREEMAN DUPONT ASSESSMENTS Encounter Date Diagnosis Assessment Notes Treatment Notes Treatment Clinical Notes Section Notes 06/10/2024 Mild persistent asthma with acute exacerbation (ICD-10 - J45.31) Will switch her Breo to Trelegy for better triple therapy maintenance coverage Will start her on some prednisone for 5 days She can continue with rescue inhalers as needed Mucolytic's can continue with this No hypoxia no fevers nontoxic-appearing If symptoms worsen please return She also is overdue for maintenance visit and labs, MWV we will schedule this Of note, some information is being carried forward from prior records for informational purposes only and is being cited so that efficiency, safety and quality of the patient's care is not compromised This note was prepared using voice recognition software and direct typing Please excuse inadvertent flat bed knitter or typing errors, or uncorrected word substitutions Although every attempt has been made by the provider to proofread this document, occasional misspellings and typographical errors may still be present Due to the previous pandemic, and the use of personal protective equipment (PPE) This may decrease voice recognition accuracy Inadvertent flat bed knitter errors may occur 08/05/2024 Encounter for screening for depression (ICD-10 - Z13.31) Acute Concerns/Problem List: 08/06/2024 Breathing stable on Trelegy Labs are mostly stable, A1c of 6.3, continue Ozempic Likely needs a right TKR Abdomen CT pelvis with contrast for positive Cologuard test Previous Cologuard in 2019 negative No history of family cancer Discussed limitations risks and benefits as well as missing malignancy MOLST/HCP Discussed and Filed Of note, some information is being carried forward from prior records for informational purposes only and is being cited so that efficiency, safety and quality of the patient's care is not compromised This note was prepared using voice recognition software and direct typing Please excuse inadvertent flat bed knitter or typing errors, or uncorrected word substitutions Although every attempt has been made by the provider to proofread this document, occasional misspellings and typographical errors may still be present Due to the previous pandemic, and the use of personal protective equipment (PPE) This may decrease voice recognition accuracy Inadvertent flat bed knitter errors may occur 08/05/2024 Annual physical exam (ICD-10 - Z00.00) Acute Concerns/Problem List: 08/06/2024 Breathing stable on Trelegy Labs are mostly stable, A1c of 6.3, continue Ozempic Likely needs a right TKR Abdomen CT pelvis with contrast for positive Cologuard test Previous Cologuard in 2019 negative No history of family cancer Discussed limitations risks and benefits as well as missing malignancy MOLST/HCP Discussed and Filed Of note, some information is being carried forward from prior records for informational purposes only and is being cited so that efficiency, safety and quality of the patient's care is not compromised This note was prepared using voice recognition software and direct typing Please excuse inadvertent flat bed knitter or typing errors, or uncorrected word substitutions Although every attempt has been made by the provider to proofread this document, occasional misspellings and typographical errors may still be present Due to the previous pandemic, and the use of personal protective equipment (PPE) This may decrease voice recognition accuracy Inadvertent flat bed knitter errors may occur 08/06/2024 Positive colorectal cancer screening using Cologuard test (ICD-10 - R19.5) 11/22/2024 New onset a-fib (ICD-10 - I48.91) Petrona is a 54-year-old female with a PMH of T2DM, HTN, MS, asthma, KARLENE the presents for hospital follow-up. Patient was admitted to [facility] 11/13/2024 -11/16/2024 for atrial flutter with RVR and NSTEMI. Patient presented to [facility] ED 11/13/2024 for evaluation of heart palpitations and chest pain. EKG revealed SVT at which point the patient was given adenosine with conversion to NSR. ED workup also significant for elevated troponins in the 200s > 517. #A-flutter: [id number] score 3. Patient started on Eliquis 5 mg twice daily and metoprolol 25mg once daily. Referral to cardiology provided. #NSTEMI: Troponins elevated at 200> 517. Likely demand ischemia secondary to tachyarrhythmia. TTE showed preserved EF 50 to 55%. Nuclear stress test revealed moderately severe ischemia of the mid-inferior, mid-inferior septal, and apical inferior boo. Patient currently being managed medically with daily aspirin, atorvastatin 20 mg once daily, and metoprolol 25 mg once daily.Patient denies current cardiac symptoms. Physical exam without acute findings. Cardiac auscultation reveals RRR. Continue above regimen. Referral to cardiology provided. #HTN: BP in office 140/76. Continue amlodipine 2.5 mg once daily. #T2DM: Continue metformin 500 mg once daily and Ozempic 2mg SC weekly. Patient having difficulty getting Ozempic from pharmacy. PA approved. Will send refill, patient understands it may be due to supply issues. #Migraine headaches: Takes Topiramate 50mg nightly. May continue sumatriptan 100 mg as needed. Not currently taking amitriptyline- may not be worth continuing due to concern for arrhythmia. Patient is encouraged to consult with her neurologist in regard to this. Follows with [facility] #Asthma: Continue Trelegy 200-62.5-25 mcg once daily. #Iron deficiency: Continue ferrous sulfate 325 mg once daily. #MS: Takes Copaxone injections TID, baclofen 10 mg nightly, and cyclobenzaprine 5 mg take as needed. Follows with [facility] #KARLENE: Continue using CPAP nightly. #Anxiety: Continue bupropion 150mg daily. #GERD: Continue 20mg once daily. #Arthritis: continue diclofenac 1% gel as needed. All questions answered to the patient's satisfaction. Patient demonstrates understanding of diagnosis and treatments discussed. Follow-up at next scheduled appointment, sooner should any questions/concerns arise. Case discussed with collaborating physician Irlanda Tapia who has reviewed the assessment/plan. Chart, medications, labs, and vital signs reviewed. Dictation completed with the use of [employer] voice recognition software, prone to medical misidentifications and grammatical errors. All errors are unintentional. Although the practitioner does try to identify and correct errors, some may be present. Please do not hesitate to contact the practitioner for clarification. 11/22/2024 Hx of non-ST elevation myocardial infarction (NSTEMI) (ICD-10 - I25.2) Petrona is a 54-year-old female with a PMH of T2DM, HTN, MS, asthma, KARLENE the presents for hospital follow-up. Patient was admitted to [facility] 11/13/2024 -11/16/2024 for atrial flutter with RVR and NSTEMI. Patient presented to [facility] ED 11/13/2024 for evaluation of heart palpitations and chest pain. EKG revealed SVT at which point the patient was given adenosine with conversion to NSR. ED workup also significant for elevated troponins in the 200s > 517. #A-flutter: [id number] score 3. Patient started on Eliquis 5 mg twice daily and metoprolol 25mg once daily. Referral to cardiology provided. #NSTEMI: Troponins elevated at 200> 517. Likely demand ischemia secondary to tachyarrhythmia. TTE showed preserved EF 50 to 55%. Nuclear stress test revealed moderately severe ischemia of the mid-inferior, mid-inferior septal, and apical inferior boo. Patient currently being managed medically with daily aspirin, atorvastatin 20 mg once daily, and metoprolol 25 mg once daily.Patient denies current cardiac symptoms. Physical exam without acute findings. Cardiac auscultation reveals RRR. Continue above regimen. Referral to cardiology provided. #HTN: BP in office 140/76. Continue amlodipine 2.5 mg once daily. #T2DM: Continue metformin 500 mg once daily and Ozempic 2mg SC weekly. Patient having difficulty getting Ozempic from pharmacy. [place] approved. Will send refill, patient understands it may be due to supply issues. #Migraine headaches: Takes Topiramate 50mg nightly. May continue sumatriptan 100 mg as needed. Not currently taking amitriptyline- may not be worth continuing due to concern for arrhythmia. Patient is encouraged to consult with her neurologist in regard to this. Follows with [facility] #Asthma: Continue Trelegy 200-62.5-25 mcg once daily. #Iron deficiency: Continue ferrous sulfate 325 mg once daily. #MS: Takes Copaxone injections TID, baclofen 10 mg nightly, and cyclobenzaprine 5 mg take as needed. Follows with [facility] #KARLENE: Continue using CPAP nightly. #Anxiety: Continue bupropion 150mg daily. #GERD: Continue 20mg once daily. #Arthritis: continue diclofenac 1% gel as needed. All questions answered to the patient's satisfaction. Patient demonstrates understanding of diagnosis and treatments discussed. Follow-up at next scheduled appointment, sooner should any questions/concerns arise. Case discussed with collaborating physician Irlanda Tapia who has reviewed the assessment/plan. Chart, medications, labs, and vital signs reviewed. Dictation completed with the use of [employer] voice recognition software, prone to medical misidentifications and grammatical errors. All errors are unintentional. Although the practitioner does try to identify and correct errors, some may be present. Please do not hesitate to contact the practitioner for clarification. 12/03/2024 New onset a-fib (ICD-10 - I48.91) Acute Concerns/Problem List: 12/03/2024 Needs new cane. RX provided Last A1c was 6.3, doing well with Ozempic, Metformin. Abdomen CT pelvis was negative. With positive cologuard in 2021, she will remain positive. We discussed polyps are the juan of colon cancer. These are found on colonoscopy, will not be picked up on CT scan. Previous Cologuard in 2019 negative No history of family cancer Seeing Cardiology on Monday. No further chest pain or palpatations. Of note, some information is being carried forward from prior records for informational purposes only and is being cited so that efficiency, safety and quality of the patient's care is not compromised This note was prepared using voice recognition software and direct typing Please excuse inadvertent flat bed knitter or typing errors, or uncorrected word substitutions Although every attempt has been made by the provider to proofread this document, occasional misspellings and typographical errors may still be present Due to the previous pandemic, and the use of personal protective equipment (PPE) This may decrease voice recognition accuracy Inadvertent flat bed knitter errors may occur 12/03/2024 Hx of non-ST elevation myocardial infarction (NSTEMI) (ICD-10 - I25.2) Acute Concerns/Problem List: 12/03/2024 Needs new cane. RX provided Last A1c was 6.3, doing well with Ozempic, Metformin. Abdomen CT pelvis was negative. With positive cologuard in 2021, she will remain positive. We discussed polyps are the juan of colon cancer. These are found on colonoscopy, will not be picked up on CT scan. Previous Cologuard in 2019 negative No history of family cancer Seeing Cardiology on Monday. No further chest pain or palpatations. Of note, some information is being carried forward from prior records for informational purposes only and is being cited so that efficiency, safety and quality of the patient's care is not compromised This note was prepared using voice recognition software and direct typing Please excuse inadvertent flat bed knitter or typing errors, or uncorrected word substitutions Although every attempt has been made by the provider to proofread this document, occasional misspellings and typographical errors may still be present Due to the previous pandemic, and the use of personal protective equipment (PPE) This may decrease voice recognition accuracy Inadvertent flat bed knitter errors may occur 11/22/2024 Essential (primary) hypertension (ICD-10 - I10) Petrona is a 54-year-old female with a PMH of T2DM, HTN, MS, asthma, KARLENE the presents for hospital follow-up. Patient was admitted to [facility] 11/13/2024 -11/16/2024 for atrial flutter with RVR and NSTEMI. Patient presented to [facility] ED 11/13/2024 for evaluation of heart palpitations and chest pain. EKG revealed SVT at which point the patient was given adenosine with conversion to NSR. ED workup also significant for elevated troponins in the 200s > 517. #A-flutter: [id number] score 3. Patient started on Eliquis 5 mg twice daily and metoprolol 25mg once daily. Referral to cardiology provided. #NSTEMI: Troponins elevated at 200> 517. Likely demand ischemia secondary to tachyarrhythmia. TTE showed preserved EF 50 to 55%. Nuclear stress test revealed moderately severe ischemia of the mid-inferior, mid-inferior septal, and apical inferior boo. Patient currently being managed medically with daily aspirin, atorvastatin 20 mg once daily, and metoprolol 25 mg once daily.Patient denies current cardiac symptoms. Physical exam without acute findings. Cardiac auscultation reveals RRR. Continue above regimen. Referral to cardiology provided. #HTN: BP in office 140/76. Continue amlodipine 2.5 mg once daily. #T2DM: Continue metformin 500 mg once daily and Ozempic 2mg SC weekly. Patient having difficulty getting Ozempic from pharmacy. [place] approved. Will send refill, patient understands it may be due to supply issues. #Migraine headaches: Takes Topiramate 50mg nightly. May continue sumatriptan 100 mg as needed. Not currently taking amitriptyline- may not be worth continuing due to concern for arrhythmia. Patient is encouraged to consult with her neurologist in regard to this. Follows with [facility] #Asthma: Continue Trelegy 200-62.5-25 mcg once daily. #Iron deficiency: Continue ferrous sulfate 325 mg once daily. #MS: Takes Copaxone injections TID, baclofen 10 mg nightly, and cyclobenzaprine 5 mg take as needed. Follows with [facility] #KARLENE: Continue using CPAP nightly. #Anxiety: Continue bupropion 150mg daily. #GERD: Continue 20mg once daily. #Arthritis: continue diclofenac 1% gel as needed. All questions answered to the patient's satisfaction. Patient demonstrates understanding of diagnosis and treatments discussed. Follow-up at next scheduled appointment, sooner should any questions/concerns arise. Case discussed with collaborating physician Irlanda Tapia who has reviewed the assessment/plan. Chart, medications, labs, and vital signs reviewed. Dictation completed with the use of [employer] voice recognition software, prone to medical misidentifications and grammatical errors. All errors are unintentional. Although the practitioner does try to identify and correct errors, some may be present. Please do not hesitate to contact the practitioner for clarification. 08/05/2024 Encounter for screening for other disorder (ICD-10 - Z13.89) Acute Concerns/Problem List: 08/06/2024 Breathing stable on Trelegy Labs are mostly stable, A1c of 6.3, continue Ozempic Likely needs a right TKR Abdomen CT pelvis with contrast for positive Cologuard test Previous Cologuard in 2019 negative No history of family cancer Discussed limitations risks and benefits as well as missing malignancy MOLST/HCP Discussed and Filed Of note, some information is being carried forward from prior records for informational purposes only and is being cited so that efficiency, safety and quality of the patient's care is not compromised This note was prepared using voice recognition software and direct typing Please excuse inadvertent flat bed knitter or typing errors, or uncorrected word substitutions Although every attempt has been made by the provider to proofread this document, occasional misspellings and typographical errors may still be present Due to the previous pandemic, and the use of personal protective equipment (PPE) This may decrease voice recognition accuracy Inadvertent flat bed knitter errors may occur 08/05/2024 Advance care planning (ICD-10 - Z71.89) Acute Concerns/Problem List: 08/06/2024 Breathing stable on Trelegy Labs are mostly stable, A1c of 6.3, continue Ozempic Likely needs a right TKR Abdomen CT pelvis with contrast for positive Cologuard test Previous Cologuard in 2019 negative No history of family cancer Discussed limitations risks and benefits as well as missing malignancy MOLST/HCP Discussed and Filed Of note, some information is being carried forward from prior records for informational purposes only and is being cited so that efficiency, safety and quality of the patient's care is not compromised This note was prepared using voice recognition software and direct typing Please excuse inadvertent flat bed knitter or typing errors, or uncorrected word substitutions Although every attempt has been made by the provider to proofread this document, occasional misspellings and typographical errors may still be present Due to the previous pandemic, and the use of personal protective equipment (PPE) This may decrease voice recognition accuracy Inadvertent flat bed knitter errors may occur 11/22/2024 Type 2 diabetes mellitus without complication, without long-term current use of insulin (ICD-10 - E11.9) Petrona is a 54-year-old female with a PMH of T2DM, HTN, MS, asthma, KARLENE the presents for hospital follow-up. Patient was admitted to [facility] 11/13/2024 -11/16/2024 for atrial flutter with RVR and NSTEMI. Patient presented to [facility] ED 11/13/2024 for evaluation of heart palpitations and chest pain. EKG revealed SVT at which point the patient was given adenosine with conversion to NSR. ED workup also significant for elevated troponins in the 200s > 517. #A-flutter: [id number] score 3. Patient started on Eliquis 5 mg twice daily and metoprolol 25mg once daily. Referral to cardiology provided. #NSTEMI: Troponins elevated at 200> 517. Likely demand ischemia secondary to tachyarrhythmia. TTE showed preserved EF 50 to 55%. Nuclear stress test revealed moderately severe ischemia of the mid-inferior, mid-inferior septal, and apical inferior boo. Patient currently being managed medically with daily aspirin, atorvastatin 20 mg once daily, and metoprolol 25 mg once daily.Patient denies current cardiac symptoms. Physical exam without acute findings. Cardiac auscultation reveals RRR. Continue above regimen. Referral to cardiology provided. #HTN: BP in office 140/76. Continue amlodipine 2.5 mg once daily. #T2DM: Continue metformin 500 mg once daily and Ozempic 2mg SC weekly. Patient having difficulty getting Ozempic from pharmacy. [place] approved. Will send refill, patient understands it may be due to supply issues. #Migraine headaches: Takes Topiramate 50mg nightly. May continue sumatriptan 100 mg as needed. Not currently taking amitriptyline- may not be worth continuing due to concern for arrhythmia. Patient is encouraged to consult with her neurologist in regard to this. Follows with [facility] #Asthma: Continue Trelegy 200-62.5-25 mcg once daily. #Iron deficiency: Continue ferrous sulfate 325 mg once daily. #MS: Takes Copaxone injections TID, baclofen 10 mg nightly, and cyclobenzaprine 5 mg take as needed. Follows with [facility] #KARLENE: Continue using CPAP nightly. #Anxiety: Continue bupropion 150mg daily. #GERD: Continue 20mg once daily. #Arthritis: continue diclofenac 1% gel as needed. All questions answered to the patient's satisfaction. Patient demonstrates understanding of diagnosis and treatments discussed. Follow-up at next scheduled appointment, sooner should any questions/concerns arise. Case discussed with collaborating physician Irlanda Tapia who has reviewed the assessment/plan. Chart, medications, labs, and vital signs reviewed. Dictation completed with the use of [employer] voice recognition software, prone to medical misidentifications and grammatical errors. All errors are unintentional. Although the practitioner does try to identify and correct errors, some may be present. Please do not hesitate to contact the practitioner for clarification. 12/03/2024 Chronic anticoagulation (ICD-10 - Z79.01) Acute Concerns/Problem List: 12/03/2024 Needs new cane. RX provided Last A1c was 6.3, doing well with Ozempic, Metformin. Abdomen CT pelvis was negative. With positive cologuard in 2021, she will remain positive. We discussed polyps are the juan of colon cancer. These are found on colonoscopy, will not be picked up on CT scan. Previous Cologuard in 2019 negative No history of family cancer Seeing Cardiology on Monday. No further chest pain or palpatations. Of note, some information is being carried forward from prior records for informational purposes only and is being cited so that efficiency, safety and quality of the patient's care is not compromised This note was prepared using voice recognition software and direct typing Please excuse inadvertent flat bed knitter or typing errors, or uncorrected word substitutions Although every attempt has been made by the provider to proofread this document, occasional misspellings and typographical errors may still be present Due to the previous pandemic, and the use of personal protective equipment (PPE) This may decrease voice recognition accuracy Inadvertent flat bed knitter errors may occur 11/22/2024 Episodic migraine (ICD-10 - G43.909) Petrona is a 54-year-old female with a PMH of T2DM, HTN, MS, asthma, KARLENE the presents for hospital follow-up. Patient was admitted to [facility] 11/13/2024 -11/16/2024 for atrial flutter with RVR and NSTEMI. Patient presented to [facility] ED 11/13/2024 for evaluation of heart palpitations and chest pain. EKG revealed SVT at which point the patient was given adenosine with conversion to NSR. ED workup also significant for elevated troponins in the 200s > 517. #A-flutter: [id number] score 3. Patient started on Eliquis 5 mg twice daily and metoprolol 25mg once daily. Referral to cardiology provided. #NSTEMI: Troponins elevated at 200> 517. Likely demand ischemia secondary to tachyarrhythmia. TTE showed preserved EF 50 to 55%. Nuclear stress test revealed moderately severe ischemia of the mid-inferior, mid-inferior septal, and apical inferior boo. Patient currently being managed medically with daily aspirin, atorvastatin 20 mg once daily, and metoprolol 25 mg once daily.Patient denies current cardiac symptoms. Physical exam without acute findings. Cardiac auscultation reveals RRR. Continue above regimen. Referral to cardiology provided. #HTN: BP in office 140/76. Continue amlodipine 2.5 mg once daily. #T2DM: Continue metformin 500 mg once daily and Ozempic 2mg SC weekly. Patient having difficulty getting Ozempic from pharmacy. [place] approved. Will send refill, patient understands it may be due to supply issues. #Migraine headaches: Takes Topiramate 50mg nightly. May continue sumatriptan 100 mg as needed. Not currently taking amitriptyline- may not be worth continuing due to concern for arrhythmia. Patient is encouraged to consult with her neurologist in regard to this. Follows with [facility] #Asthma: Continue Trelegy 200-62.5-25 mcg once daily. #Iron deficiency: Continue ferrous sulfate 325 mg once daily. #MS: Takes Copaxone injections TID, baclofen 10 mg nightly, and cyclobenzaprine 5 mg take as needed. Follows with [facility] #KARLENE: Continue using CPAP nightly. #Anxiety: Continue bupropion 150mg daily. #GERD: Continue 20mg once daily. #Arthritis: continue diclofenac 1% gel as needed. All questions answered to the patient's satisfaction. Patient demonstrates understanding of diagnosis and treatments discussed. Follow-up at next scheduled appointment, sooner should any questions/concerns arise. Case discussed with collaborating physician Irlanda Tapia who has reviewed the assessment/plan. Chart, medications, labs, and vital signs reviewed. Dictation completed with the use of [employer] voice recognition software, prone to medical misidentifications and grammatical errors. All errors are unintentional. Although the practitioner does try to identify and correct errors, some may be present. Please do not hesitate to contact the practitioner for clarification. 12/03/2024 Morbid obesity (ICD-10 - E66.01) Acute Concerns/Problem List: 12/03/2024 Needs new cane. RX provided Last A1c was 6.3, doing well with Ozempic, Metformin. Abdomen CT pelvis was negative. With positive cologuard in 2021, she will remain positive. We discussed polyps are the juan of colon cancer. These are found on colonoscopy, will not be picked up on CT scan. Previous Cologuard in 2018 negative No history of family cancer Seeing Cardiology on Monday. No further chest pain or palpatations. Of note, some information is being carried forward from prior records for informational purposes only and is being cited so that efficiency, safety and quality of the patient's care is not compromised This note was prepared using voice recognition software and direct typing Please excuse inadvertent flat bed knitter or typing errors, or uncorrected word substitutions Although every attempt has been made by the provider to proofread this document, occasional misspellings and typographical errors may still be present Due to the previous pandemic, and the use of personal protective equipment (PPE) This may decrease voice recognition accuracy Inadvertent flat bed knitter errors may occur 08/05/2024 Morbid obesity (ICD-10 - E66.01) Acute Concerns/Problem List: 08/06/2024 Breathing stable on Trelegy Labs are mostly stable, A1c of 6.3, continue Ozempic Likely needs a right TKR Abdomen CT pelvis with contrast for positive Cologuard test Previous Cologuard in 2019 negative No history of family cancer Discussed limitations risks and benefits as well as missing malignancy MOLST/HCP Discussed and Filed Of note, some information is being carried forward from prior records for informational purposes only and is being cited so that efficiency, safety and quality of the patient's care is not compromised This note was prepared using voice recognition software and direct typing Please excuse inadvertent flat bed knitter or typing errors, or uncorrected word substitutions Although every attempt has been made by the provider to proofread this document, occasional misspellings and typographical errors may still be present Due to the previous pandemic, and the use of personal protective equipment (PPE) This may decrease voice recognition accuracy Inadvertent flat bed knitter errors may occur 11/22/2024 Moderate persistent asthma without complication (ICD-10 - J45.40) Petrona is a 54-year-old female with a PMH of T2DM, HTN, MS, asthma, KARLENE the presents for hospital follow-up. Patient was admitted to [facility] 11/13/2024 -11/16/2024 for atrial flutter with RVR and NSTEMI. Patient presented to [facility] ED 11/13/2024 for evaluation of heart palpitations and chest pain. EKG revealed SVT at which point the patient was given adenosine with conversion to NSR. ED workup also significant for elevated troponins in the 200s > 517. #A-flutter: [id number] score 3. Patient started on Eliquis 5 mg twice daily and metoprolol 25mg once daily. Referral to cardiology provided. #NSTEMI: Troponins elevated at 200> 517. Likely demand ischemia secondary to tachyarrhythmia. TTE showed preserved EF 50 to 55%. Nuclear stress test revealed moderately severe ischemia of the mid-inferior, mid-inferior septal, and apical inferior boo. Patient currently being managed medically with daily aspirin, atorvastatin 20 mg once daily, and metoprolol 25 mg once daily.Patient denies current cardiac symptoms. Physical exam without acute findings. Cardiac auscultation reveals RRR. Continue above regimen. Referral to cardiology provided. #HTN: BP in office 140/76. Continue amlodipine 2.5 mg once daily. #T2DM: Continue metformin 500 mg once daily and Ozempic 2mg SC weekly. Patient having difficulty getting Ozempic from pharmacy. [place] approved. Will send refill, patient understands it may be due to supply issues. #Migraine headaches: Takes Topiramate 50mg nightly. May continue sumatriptan 100 mg as needed. Not currently taking amitriptyline- may not be worth continuing due to concern for arrhythmia. Patient is encouraged to consult with her neurologist in regard to this. Follows with [facility] #Asthma: Continue Trelegy 200-62.5-25 mcg once daily. #Iron deficiency: Continue ferrous sulfate 325 mg once daily. #MS: Takes Copaxone injections TID, baclofen 10 mg nightly, and cyclobenzaprine 5 mg take as needed. Follows with [facility] #KARLENE: Continue using CPAP nightly. #Anxiety: Continue bupropion 150mg daily. #GERD: Continue 20mg once daily. #Arthritis: continue diclofenac 1% gel as needed. All questions answered to the patient's satisfaction. Patient demonstrates understanding of diagnosis and treatments discussed. Follow-up at next scheduled appointment, sooner should any questions/concerns arise. Case discussed with collaborating physician Irlanda Tapia who has reviewed the assessment/plan. Chart, medications, labs, and vital signs reviewed. Dictation completed with the use of [employer] voice recognition software, prone to medical misidentifications and grammatical errors. All errors are unintentional. Although the practitioner does try to identify and correct errors, some may be present. Please do not hesitate to contact the practitioner for clarification. 08/05/2024 BMI 50.0-59.9, adult (ICD-10 - Z68.43) Acute Concerns/Problem List: 08/06/2024 Breathing stable on Trelegy Labs are mostly stable, A1c of 6.3, continue Ozempic Likely needs a right TKR Abdomen CT pelvis with contrast for positive Cologuard test Previous Cologuard in 2019 negative No history of family cancer Discussed limitations risks and benefits as well as missing malignancy MOLST/HCP Discussed and Filed Of note, some information is being carried forward from prior records for informational purposes only and is being cited so that efficiency, safety and quality of the patient's care is not compromised This note was prepared using voice recognition software and direct typing Please excuse inadvertent flat bed knitter or typing errors, or uncorrected word substitutions Although every attempt has been made by the provider to proofread this document, occasional misspellings and typographical errors may still be present Due to the previous pandemic, and the use of personal protective equipment (PPE) This may decrease voice recognition accuracy Inadvertent flat bed knitter errors may occur 12/03/2024 BMI 50.0-59.9, adult (ICD-10 - Z68.43) Acute Concerns/Problem List: 12/03/2024 Needs new cane. RX provided Last A1c was 6.3, doing well with Ozempic, Metformin. Abdomen CT pelvis was negative. With positive cologuard in 2021, she will remain positive. We discussed polyps are the juan of colon cancer. These are found on colonoscopy, will not be picked up on CT scan. Previous Cologuard in 2019 negative No history of family cancer Seeing Cardiology on Monday. No further chest pain or palpatations. Of note, some information is being carried forward from prior records for informational purposes only and is being cited so that efficiency, safety and quality of the patient's care is not compromised This note was prepared using voice recognition software and direct typing Please excuse inadvertent flat bed knitter or typing errors, or uncorrected word substitutions Although every attempt has been made by the provider to proofread this document, occasional misspellings and typographical errors may still be present Due to the previous pandemic, and the use of personal protective equipment (PPE) This may decrease voice recognition accuracy Inadvertent flat bed knitter errors may occur 11/22/2024 Iron deficiency anemia due to chronic blood loss (ICD-10 - D50.0) Petrona is a 54-year-old female with a PMH of T2DM, HTN, MS, asthma, KARLENE the presents for hospital follow-up. Patient was admitted to [facility] 11/13/2024 -11/16/2024 for atrial flutter with RVR and NSTEMI. Patient presented to [facility] ED 11/13/2024 for evaluation of heart palpitations and chest pain. EKG revealed SVT at which point the patient was given adenosine with conversion to NSR. ED workup also significant for elevated troponins in the 200s > 517. #A-flutter: [id number] score 3. Patient started on Eliquis 5 mg twice daily and metoprolol 25mg once daily. Referral to cardiology provided. #NSTEMI: Troponins elevated at 200> 517. Likely demand ischemia secondary to tachyarrhythmia. TTE showed preserved EF 50 to 55%. Nuclear stress test revealed moderately severe ischemia of the mid-inferior, mid-inferior septal, and apical inferior boo. Patient currently being managed medically with daily aspirin, atorvastatin 20 mg once daily, and metoprolol 25 mg once daily.Patient denies current cardiac symptoms. Physical exam without acute findings. Cardiac auscultation reveals RRR. Continue above regimen. Referral to cardiology provided. #HTN: BP in office 140/76. Continue amlodipine 2.5 mg once daily. #T2DM: Continue metformin 500 mg once daily and Ozempic 2mg SC weekly. Patient having difficulty getting Ozempic from pharmacy. [place] approved. Will send refill, patient understands it may be due to supply issues. #Migraine headaches: Takes Topiramate 50mg nightly. May continue sumatriptan 100 mg as needed. Not currently taking amitriptyline- may not be worth continuing due to concern for arrhythmia. Patient is encouraged to consult with her neurologist in regard to this. Follows with [facility] #Asthma: Continue Trelegy 200-62.5-25 mcg once daily. #Iron deficiency: Continue ferrous sulfate 325 mg once daily. #MS: Takes Copaxone injections TID, baclofen 10 mg nightly, and cyclobenzaprine 5 mg take as needed. Follows with [facility] #KARLENE: Continue using CPAP nightly. #Anxiety: Continue bupropion 150mg daily. #GERD: Continue 20mg once daily. #Arthritis: continue diclofenac 1% gel as needed. All questions answered to the patient's satisfaction. Patient demonstrates understanding of diagnosis and treatments discussed. Follow-up at next scheduled appointment, sooner should any questions/concerns arise. Case discussed with collaborating physician Irlanda Tapia who has reviewed the assessment/plan. Chart, medications, labs, and vital signs reviewed. Dictation completed with the use of [employer] voice recognition software, prone to medical misidentifications and grammatical errors. All errors are unintentional. Although the practitioner does try to identify and correct errors, some may be present. Please do not hesitate to contact the practitioner for clarification. 12/03/2024 Essential (primary) hypertension (ICD-10 - I10) Acute Concerns/Problem List: 12/03/2024 Needs new cane. RX provided Last A1c was 6.3, doing well with Ozempic, Metformin. Abdomen CT pelvis was negative. With positive cologuard in 2021, she will remain positive. We discussed polyps are the juan of colon cancer. These are found on colonoscopy, will not be picked up on CT scan. Previous Cologuard in 2019 negative No history of family cancer Seeing Cardiology on Monday. No further chest pain or palpatations. Of note, some information is being carried forward from prior records for informational purposes only and is being cited so that efficiency, safety and quality of the patient's care is not compromised This note was prepared using voice recognition software and direct typing Please excuse inadvertent flat bed knitter or typing errors, or uncorrected word substitutions Although every attempt has been made by the provider to proofread this document, occasional misspellings and typographical errors may still be present Due to the previous pandemic, and the use of personal protective equipment (PPE) This may decrease voice recognition accuracy Inadvertent flat bed knitter errors may occur 08/05/2024 Essential (primary) hypertension (ICD-10 - I10) Acute Concerns/Problem List: 08/06/2024 Breathing stable on Trelegy Labs are mostly stable, A1c of 6.3, continue Ozempic Likely needs a right TKR Abdomen CT pelvis with contrast for positive Cologuard test Previous Cologuard in 2018 negative No history of family cancer Discussed limitations risks and benefits as well as missing malignancy MOLST/HCP Discussed and Filed Of note, some information is being carried forward from prior records for informational purposes only and is being cited so that efficiency, safety and quality of the patient's care is not compromised This note was prepared using voice recognition software and direct typing Please excuse inadvertent flat bed knitter or typing errors, or uncorrected word substitutions Although every attempt has been made by the provider to proofread this document, occasional misspellings and typographical errors may still be present Due to the previous pandemic, and the use of personal protective equipment (PPE) This may decrease voice recognition accuracy Inadvertent flat bed knitter errors may occur 08/05/2024 Prediabetes (ICD-10 - R73.03) Acute Concerns/Problem List: 08/06/2024 Breathing stable on Trelegy Labs are mostly stable, A1c of 6.3, continue Ozempic Likely needs a right TKR Abdomen CT pelvis with contrast for positive Cologuard test Previous Cologuard in 2019 negative No history of family cancer Discussed limitations risks and benefits as well as missing malignancy MOLST/HCP Discussed and Filed Of note, some information is being carried forward from prior records for informational purposes only and is being cited so that efficiency, safety and quality of the patient's care is not compromised This note was prepared using voice recognition software and direct typing Please excuse inadvertent flat bed knitter or typing errors, or uncorrected word substitutions Although every attempt has been made by the provider to proofread this document, occasional misspellings and typographical errors may still be present Due to the previous pandemic, and the use of personal protective equipment (PPE) This may decrease voice recognition accuracy Inadvertent flat bed knitter errors may occur 12/03/2024 Prediabetes (ICD-10 - R73.03) Acute Concerns/Problem List: 12/03/2024 Needs new cane. RX provided Last A1c was 6.3, doing well with Ozempic, Metformin. Abdomen CT pelvis was negative. With positive cologuard in 2021, she will remain positive. We discussed polyps are the juan of colon cancer. These are found on colonoscopy, will not be picked up on CT scan. Previous Cologuard in 2019 negative No history of family cancer Seeing Cardiology on Monday. No further chest pain or palpatations. Of note, some information is being carried forward from prior records for informational purposes only and is being cited so that efficiency, safety and quality of the patient's care is not compromised This note was prepared using voice recognition software and direct typing Please excuse inadvertent flat bed knitter or typing errors, or uncorrected word substitutions Although every attempt has been made by the provider to proofread this document, occasional misspellings and typographical errors may still be present Due to the previous pandemic, and the use of personal protective equipment (PPE) This may decrease voice recognition accuracy Inadvertent flat bed knitter errors may occur 11/22/2024 Multiple sclerosis (ICD-10 - G35) Petrona is a 54-year-old female with a PMH of T2DM, HTN, MS, asthma, KARLENE the presents for hospital follow-up. Patient was admitted to [facility] 11/13/2024 -11/16/2024 for atrial flutter with RVR and NSTEMI. Patient presented to [facility] ED 11/13/2024 for evaluation of heart palpitations and chest pain. EKG revealed SVT at which point the patient was given adenosine with conversion to NSR. ED workup also significant for elevated troponins in the 200s > 517. #A-flutter: [id number] score 3. Patient started on Eliquis 5 mg twice daily and metoprolol 25mg once daily. Referral to cardiology provided. #NSTEMI: Troponins elevated at 200> 517. Likely demand ischemia secondary to tachyarrhythmia. TTE showed preserved EF 50 to 55%. Nuclear stress test revealed moderately severe ischemia of the mid-inferior, mid-inferior septal, and apical inferior boo. Patient currently being managed medically with daily aspirin, atorvastatin 20 mg once daily, and metoprolol 25 mg once daily.Patient denies current cardiac symptoms. Physical exam without acute findings. Cardiac auscultation reveals RRR. Continue above regimen. Referral to cardiology provided. #HTN: BP in office 140/76. Continue amlodipine 2.5 mg once daily. #T2DM: Continue metformin 500 mg once daily and Ozempic 2mg SC weekly. Patient having difficulty getting Ozempic from pharmacy. [place] approved. Will send refill, patient understands it may be due to supply issues. #Migraine headaches: Takes Topiramate 50mg nightly. May continue sumatriptan 100 mg as needed. Not currently taking amitriptyline- may not be worth continuing due to concern for arrhythmia. Patient is encouraged to consult with her neurologist in regard to this. Follow[facility] with [facility] #Asthma: Continue Trelegy 200-62.5-25 mcg once daily. #Iron deficiency: Continue ferrous sulfate 325 mg once daily. #MS: Takes Copaxone injections TID, baclofen 10 mg nightly, and cyclobenzaprine 5 mg take as needed. Follows with [facility] #KARLENE: Continue using CPAP nightly. #Anxiety: Continue bupropion 150mg daily. #GERD: Continue 20mg once daily. #Arthritis: continue diclofenac 1% gel as needed. All questions answered to the patient's satisfaction. Patient demonstrates understanding of diagnosis and treatments discussed. Follow-up at next scheduled appointment, sooner should any questions/concerns arise. Case discussed with collaborating physician Irlanda Tapia who has reviewed the assessment/plan. Chart, medications, labs, and vital signs reviewed. Dictation completed with the use of [employer] voice recognition software, prone to medical misidentifications and grammatical errors. All errors are unintentional. Although the practitioner does try to identify and correct errors, some may be present. Please do not hesitate to contact the practitioner for clarification. 12/03/2024 Unsteady gait (ICD-10 - R26.81) Acute Concerns/Problem List: 12/03/2024 Needs new cane. RX provided Last A1c was 6.3, doing well with Ozempic, Metformin. Abdomen CT pelvis was negative. With positive cologuard in 2021, she will remain positive. We discussed polyps are the juan of colon cancer. These are found on colonoscopy, will not be picked up on CT scan. Previous Cologuard in 2018 negative No history of family cancer Seeing Cardiology on Monday. No further chest pain or palpatations. Of note, some information is being carried forward from prior records for informational purposes only and is being cited so that efficiency, safety and quality of the patient's care is not compromised This note was prepared using voice recognition software and direct typing Please excuse inadvertent flat bed knitter or typing errors, or uncorrected word substitutions Although every attempt has been made by the provider to proofread this document, occasional misspellings and typographical errors may still be present Due to the previous pandemic, and the use of personal protective equipment (PPE) This may decrease voice recognition accuracy Inadvertent flat bed knitter errors may occur 11/22/2024 KARLENE on CPAP (ICD-10 - G47.33) Petrona is a 54-year-old female with a PMH of T2DM, HTN, MS, asthma, KARLENE the presents for hospital follow-up. Patient was admitted to [facility] 11/13/2024 -11/16/2024 for atrial flutter with RVR and NSTEMI. Patient presented to [facility] ED 11/13/2024 for evaluation of heart palpitations and chest pain. EKG revealed SVT at which point the patient was given adenosine with conversion to NSR. ED workup also significant for elevated troponins in the 200s > 517. #A-flutter: [id number] score 3. Patient started on Eliquis 5 mg twice daily and metoprolol 25mg once daily. Referral to cardiology provided. #NSTEMI: Troponins elevated at 200> 517. Likely demand ischemia secondary to tachyarrhythmia. TTE showed preserved EF 50 to 55%. Nuclear stress test revealed moderately severe ischemia of the mid-inferior, mid-inferior septal, and apical inferior boo. Patient currently being managed medically with daily aspirin, atorvastatin 20 mg once daily, and metoprolol 25 mg once daily.Patient denies current cardiac symptoms. Physical exam without acute findings. Cardiac auscultation reveals RRR. Continue above regimen. Referral to cardiology provided. #HTN: BP in office 140/76. Continue amlodipine 2.5 mg once daily. #T2DM: Continue metformin 500 mg once daily and Ozempic 2mg SC weekly. Patient having difficulty getting Ozempic from pharmacy. [place] approved. Will send refill, patient understands it may be due to supply issues. #Migraine headaches: Takes Topiramate 50mg nightly. May continue sumatriptan 100 mg as needed. Not currently taking amitriptyline- may not be worth continuing due to concern for arrhythmia. Patient is encouraged to consult with her neurologist in regard to this. [facility] with [facility] #Asthma: Continue Trelegy 200-62.5-25 mcg once daily. #Iron deficiency: Continue ferrous sulfate 325 mg once daily. #MS: Takes Copaxone injections TID, baclofen 10 mg nightly, and cyclobenzaprine 5 mg take as needed. Follows with [facility] #KARLENE: Continue using CPAP nightly. #Anxiety: Continue bupropion 150mg daily. #GERD: Continue 20mg once daily. #Arthritis: continue diclofenac 1% gel as needed. All questions answered to the patient's satisfaction. Patient demonstrates understanding of diagnosis and treatments discussed. Follow-up at next scheduled appointment, sooner should any questions/concerns arise. Case discussed with collaborating physician Irlanda Tapia who has reviewed the assessment/plan. Chart, medications, labs, and vital signs reviewed. Dictation completed with the use of [employer] voice recognition software, prone to medical misidentifications and grammatical errors. All errors are unintentional. Although the practitioner does try to identify and correct errors, some may be present. Please do not hesitate to contact the practitioner for clarification. 08/05/2024 Breast cancer screening by mammogram (ICD-10 - Z12.31) Acute Concerns/Problem List: 08/06/2024 Breathing stable on Trelegy Labs are mostly stable, A1c of 6.3, continue Ozempic Likely needs a right TKR Abdomen CT pelvis with contrast for positive Cologuard test Previous Cologuard in 2019 negative No history of family cancer Discussed limitations risks and benefits as well as missing malignancy MOLST/HCP Discussed and Filed Of note, some information is being carried forward from prior records for informational purposes only and is being cited so that efficiency, safety and quality of the patient's care is not compromised This note was prepared using voice recognition software and direct typing Please excuse inadvertent flat bed knitter or typing errors, or uncorrected word substitutions Although every attempt has been made by the provider to proofread this document, occasional misspellings and typographical errors may still be present Due to the previous pandemic, and the use of personal protective equipment (PPE) This may decrease voice recognition accuracy Inadvertent flat bed knitter errors may occur 12/03/2024 Breast cancer screening by mammogram (ICD-10 - Z12.31) Acute Concerns/Problem List: 12/03/2024 Needs new cane. RX provided Last A1c was 6.3, doing well with Ozempic, Metformin. Abdomen CT pelvis was negative. With positive cologuard in 2021, she will remain positive. We discussed polyps are the juan of colon cancer. These are found on colonoscopy, will not be picked up on CT scan. Previous Cologuard in 2019 negative No history of family cancer Seeing Cardiology on Monday. No further chest pain or palpatations. Of note, some information is being carried forward from prior records for informational purposes only and is being cited so that efficiency, safety and quality of the patient's care is not compromised This note was prepared using voice recognition software and direct typing Please excuse inadvertent flat bed knitter or typing errors, or uncorrected word substitutions Although every attempt has been made by the provider to proofread this document, occasional misspellings and typographical errors may still be present Due to the previous pandemic, and the use of personal protective equipment (PPE) This may decrease voice recognition accuracy Inadvertent flat bed knitter errors may occur 11/22/2024 Anxiety, generalized (ICD-10 - F41.1) Petrona is a 54-year-old female with a PMH of T2DM, HTN, MS, asthma, KARLENE the presents for hospital follow-up. Patient was admitted to [facility] 11/13/2024 -11/16/2024 for atrial flutter with RVR and NSTEMI. Patient presented to [facility] ED 11/13/2024 for evaluation of heart palpitations and chest pain. EKG revealed SVT at which point the patient was given adenosine with conversion to NSR. ED workup also significant for elevated troponins in the 200s > 517. #A-flutter: [id number] score 3. Patient started on Eliquis 5 mg twice daily and metoprolol 25mg once daily. Referral to cardiology provided. #NSTEMI: Troponins elevated at 200> 517. Likely demand ischemia secondary to tachyarrhythmia. TTE showed preserved EF 50 to 55%. Nuclear stress test revealed moderately severe ischemia of the mid-inferior, mid-inferior septal, and apical inferior obo. Patient currently being managed medically with daily aspirin, atorvastatin 20 mg once daily, and metoprolol 25 mg once daily.Patient denies current cardiac symptoms. Physical exam without acute findings. Cardiac auscultation reveals RRR. Continue above regimen. Referral to cardiology provided. #HTN: BP in office 140/76. Continue amlodipine 2.5 mg once daily. #T2DM: Continue metformin 500 mg once daily and Ozempic 2mg SC weekly. Patient having difficulty getting Ozempic from pharmacy. [place] approved. Will send refill, patient understands it may be due to supply issues. #Migraine headaches: Takes Topiramate 50mg nightly. May continue sumatriptan 100 mg as needed. Not currently taking amitriptyline- may not be worth continuing due to concern for arrhythmia. Patient is encouraged to consult with her neurologist in regard to this. Follows with [facility] #Asthma: Continue Trelegy 200-62.5-25 mcg once daily. #Iron deficiency: Continue ferrous sulfate 325 mg once daily. #MS: Takes Copaxone injections TID, baclofen 10 mg nightly, and cyclobenzaprine 5 mg take as needed. Follows with [facility] #KARLENE: Continue using CPAP nightly. #Anxiety: Continue bupropion 150mg daily. #GERD: Continue 20mg once daily. #Arthritis: continue diclofenac 1% gel as needed. All questions answered to the patient's satisfaction. Patient demonstrates understanding of diagnosis and treatments discussed. Follow-up at next scheduled appointment, sooner should any questions/concerns arise. Case discussed with collaborating physician Irlanda Tapia who has reviewed the assessment/plan. Chart, medications, labs, and vital signs reviewed. Dictation completed with the use of [employer] voice recognition software, prone to medical misidentifications and grammatical errors. All errors are unintentional. Although the practitioner does try to identify and correct errors, some may be present. Please do not hesitate to contact the practitioner for clarification. 11/22/2024 GERD without esophagitis (ICD-10 - K21.9) Petrona is a 54-year-old female with a PMH of T2DM, HTN, MS, asthma, KARLENE the presents for hospital follow-up. Patient was admitted to [facility] 11/13/2024 -11/16/2024 for atrial flutter with RVR and NSTEMI. Patient presented to [facility] ED 11/13/2024 for evaluation of heart palpitations and chest pain. EKG revealed SVT at which point the patient was given adenosine with conversion to NSR. ED workup also significant for elevated troponins in the 200s > 517. #A-flutter: [id number] score 3. Patient started on Eliquis 5 mg twice daily and metoprolol 25mg once daily. Referral to cardiology provided. #NSTEMI: Troponins elevated at 200> 517. Likely demand ischemia secondary to tachyarrhythmia. TTE showed preserved EF 50 to 55%. Nuclear stress test revealed moderately severe ischemia of the mid-inferior, mid-inferior septal, and apical inferior boo. Patient currently being managed medically with daily aspirin, atorvastatin 20 mg once daily, and metoprolol 25 mg once daily.Patient denies current cardiac symptoms. Physical exam without acute findings. Cardiac auscultation reveals RRR. Continue above regimen. Referral to cardiology provided. #HTN: BP in office 140/76. Continue amlodipine 2.5 mg once daily. #T2DM: Continue metformin 500 mg once daily and Ozempic 2mg SC weekly. Patient having difficulty getting Ozempic from pharmacy. [place] approved. Will send refill, patient understands it may be due to supply issues. #Migraine headaches: Takes Topiramate 50mg nightly. May continue sumatriptan 100 mg as needed. Not currently taking amitriptyline- may not be worth continuing due to concern for arrhythmia. Patient is encouraged to consult with her neurologist in regard to this. Follows with [facility] #Asthma: Continue Trelegy 200-62.5-25 mcg once daily. #Iron deficiency: Continue ferrous sulfate 325 mg once daily. #MS: Takes Copaxone injections TID, baclofen 10 mg nightly, and cyclobenzaprine 5 mg take as needed. Follows with [facility] #KARLENE: Continue using CPAP nightly. #Anxiety: Continue bupropion 150mg daily. #GERD: Continue 20mg once daily. #Arthritis: continue diclofenac 1% gel as needed. All questions answered to the patient's satisfaction. Patient demonstrates understanding of diagnosis and treatments discussed. Follow-up at next scheduled appointment, sooner should any questions/concerns arise. Case discussed with collaborating physician Irlanda Tapia who has reviewed the assessment/plan. Chart, medications, labs, and vital signs reviewed. Dictation completed with the use of [employer] voice recognition software, prone to medical misidentifications and grammatical errors. All errors are unintentional. Although the practitioner does try to identify and correct errors, some may be present. Please do not hesitate to contact the practitioner for clarification. 11/22/2024 Arthritis (ICD-10 - M19.90) Petrona is a 54-year-old female with a PMH of T2DM, HTN, MS, asthma, KARLENE the presents for hospital follow-up. Patient was admitted to [facility] 11/13/2024 -11/16/2024 for atrial flutter with RVR and NSTEMI. Patient presented to [facility] ED 11/13/2024 for evaluation of heart palpitations and chest pain. EKG revealed SVT at which point the patient was given adenosine with conversion to NSR. ED workup also significant for elevated troponins in the 200s > 517. #A-flutter: [id number] score 3. Patient started on Eliquis 5 mg twice daily and metoprolol 25mg once daily. Referral to cardiology provided. #NSTEMI: Troponins elevated at 200> 517. Likely demand ischemia secondary to tachyarrhythmia. TTE showed preserved EF 50 to 55%. Nuclear stress test revealed moderately severe ischemia of the mid-inferior, mid-inferior septal, and apical inferior boo. Patient currently being managed medically with daily aspirin, atorvastatin 20 mg once daily, and metoprolol 25 mg once daily.Patient denies current cardiac symptoms. Physical exam without acute findings. Cardiac auscultation reveals RRR. Continue above regimen. Referral to cardiology provided. #HTN: BP in office 140/76. Continue amlodipine 2.5 mg once daily. #T2DM: Continue metformin 500 mg once daily and Ozempic 2mg SC weekly. Patient having difficulty getting Ozempic from pharmacy. PA approved. Will send refill, patient understands it may be due to supply issues. #Migraine headaches: Takes Topiramate 50mg nightly. May continue sumatriptan 100 mg as needed. Not currently taking amitriptyline- may not be worth continuing due to concern for arrhythmia. Patient is encouraged to consult with her neurologist in regard to this. Follows with [facility] #Asthma: Continue Trelegy 200-62.5-25 mcg once daily. #Iron deficiency: Continue ferrous sulfate 325 mg once daily. #MS: Takes Copaxone injections TID, baclofen 10 mg nightly, and cyclobenzaprine 5 mg take as needed. Follows with [facility] #KARLENE: Continue using CPAP nightly. #Anxiety: Continue bupropion 150mg daily. #GERD: Continue 20mg once daily. #Arthritis: continue diclofenac 1% gel as needed. All questions answered to the patient's satisfaction. Patient demonstrates understanding of diagnosis and treatments discussed. Follow-up at next scheduled appointment, sooner should any questions/concerns arise. Case discussed with collaborating physician Irlanda Tapia who has reviewed the assessment/plan. Chart, medications, labs, and vital signs reviewed. Dictation completed with the use of [employer] voice recognition software, prone to medical misidentifications and grammatical errors. All errors are unintentional. Although the practitioner does try to identify and correct errors, some may be present. Please do not hesitate to contact the practitioner for clarification. PLAN OF TREATMENT Pending Test Test Name Order Date Mammogram 08/05/2024 Mammogram 12/03/2024 Hemoglobin A1c 02/20/2019 Comp. Metabolic Panel (14) 02/20/2019 EKG 01/31/2023 CBC (COMPLETE BLOOD COUNT) 02/08/2018 CBC (COMPLETE BLOOD COUNT) 05/29/2019 CBC (COMPLETE BLOOD COUNT) 10/01/2019 COMPREHENSIVE METABOLIC PANEL 02/08/2018 COMPREHENSIVE METABOLIC PANEL 05/29/2019 COMPREHENSIVE METABOLIC PANEL 10/01/2019 HEMOGLOBIN A1C 10/01/2019 HEMOGLOBIN A1C 05/29/2019 HEMOGLOBIN A1C 02/08/2018 LIPID PANEL 02/08/2018 LIPID PANEL 10/01/2019 LIPID PANEL 05/29/2019 URINALYSIS, COMPLETE 05/29/2019 URINALYSIS, COMPLETE 10/01/2019 URINALYSIS, COMPLETE 02/08/2018 XR Shoulder 2+ Views LT 2022 Cologuard 05/29/2019 Cologuard 05/25/2022 LIPID PANEL, STANDARD 06/10/2024 LIPID PANEL, STANDARD 05/25/2022 COMPREHENSIVE METABOLIC PANEL 06/10/2024 COMPREHENSIVE METABOLIC PANEL 05/25/2022 CBC (INCLUDES DIFF/PLT) 05/25/2022 CBC (INCLUDES DIFF/PLT) 06/10/2024 URINALYSIS, COMPLETE 06/10/2024 URINALYSIS, COMPLETE W/REFLEX TO CULTURE 05/25/2022 HEMOGLOBIN A1c 06/10/2024 HEMOGLOBIN A1c 05/25/2022 TSH 05/25/2022 TSH 06/10/2024 VITAMIN D,25-OH,TOTAL,IA 06/10/2024 VITAMIN D,25-OH,TOTAL,IA 05/25/2022 H PYLORI BREATH TEST 03/09/2021 CT Abdomen Pelvis W Cont 08/05/2024 CT Abdomen Pelvis W Cont 08/06/2024 Future Test Test Name Order Date 25OH VITAMIN D 12/18/2021 CBC (COMPLETE BLOOD COUNT) 12/18/2021 COMPREHENSIVE METABOLIC PANEL 12/18/2021 HEMOGLOBIN A1C 12/18/2021 LIPID PANEL 12/18/2021 TSH 12/18/2021 COMPLETE URINALYSIS 12/18/2021 HEMOGLOBIN A1C 12/19/2022 Next Appt Details Provider Name:FREEMAN DUPONT, 04/04/2025 08:30:00 AM, [address] [facility], [address], [place], [address], Insurance Providers Payer Name Payer Address Payer Phone Subscriber Number Group Number Insured Name Patient Relationship to Insured Coverage Start Date Coverage End Date [employer] or Options [address] [place] [id number] PETRONA PARDO Self - patient is the insured MEDICAL (GENERAL) HISTORY Surgical History Surgery Date(Month/Year) tubal ligation right knee arthroscopy
--- OUTSIDE RECORDS SUMMARY | 2025-01-27 13:29 | XMS_ITS ---
Author Organization [facility] Address [address] [place] [id number] Care Team Providers Care Financial Internship Name Role Phone FREEMAN DUPONT Primary Care Provider ALLERGIES No Known Allergies REASON FOR VISIT Pt here for follow up, pt has no concerns. MEDICATIONS Medication SIG (Take, Route, Frequency, Duration) Notes Start Date End Date Status Diclofenac Sodium 1 % Apply as directed to affected area Externally for 30 days 11/22/2024 Active buPROPion HCl ER (Smoking Det) 150 MG TAKE 1 TABLET BY MOUTH TWICE A DAY for 30 days Active Cyclobenzaprine HCl 5 MG TAKE 1 TABLET B Y MOUTH EVERY DAY AT BEDTIME NEEDED FOR 30 DAYS for 30 Active Ozempic (2 MG/DOSE) 8 MG/3ML Inject 2mg Subcutaneous weekly for 30 days 11/22/2024 Active Omeprazole 20 MG 1 capsule 30 minutes before morning meal Orally Once a day for 30 days 12/22/2020 Active Copaxone 40 MG/ML 1 ml Subcutaneous as directed for 30 day(s) Monday, Monday, Monday Active amLODIPine Besylate 2.5 MG TAKE 1 TABLET BY MOUTH EVERY DAY for 90 Active Mounjaro 2.5 MG/0.5ML 2.5mg Subcutaneous weekly for 30 days Active Ozempic (2 MG/DOSE) 8 MG/3ML 2mg Subcutaneous weekly for 30 days Active Ozempic (1 MG/DOSE) 4 MG/3ML 1mg Subcutaneous weekly for 30 days Active Phentermine HCl 15 MG 1 capsule Orally Once a day for 30 days Active Trelegy Ellipta 200-62.5-25 MCG/ACT INHALE 1 PUFF INTO THE LUNGS EVERY DAY FOR 30 DAYS for 30 Active metFORMIN HCl 500 MG TAKE 1 TABLET BY MOUTH EVERY DAY WITH A MEAL for 90 Active Aspirin 81 81 MG 1 tablet Orally Once a day for 90 days Active Ferrous Sulfate 325 (65 Fe) MG 1 tablet Orally Once a day for 90 days Active Metoprolol Succinate ER 25 MG 1 tablet Orally Once a day Active Atorvastatin Calcium 20 MG 1 tablet Orally Once a day Active Eliquis 5 MG as directed Orally Active Vitamin D3 1.25 MG (01494 UT) 1 capsule Orally once weekly for 90 days 08/14/2023 Active SOCIAL HISTORY Tobacco Use: Social History Observation Description Date Details (start date - stop date) Never Smoker NA - NA Sex Assigned At : Social History Observation Description Sex Assigned At Unknown Tobacco Use/Smoking Question Answer Notes Are you a nonsmoker PROBLEMS Problem Type ICD Code Onset Dates Problem Status W/U Status Risk SNOMED Code Notes Problem BMI 50.0-59.9, adult (Z68.43) Active confirmed Body mass ind ex 40+ - severely obese (744197757) Problem Essential (primary) hypertension (I10) Active confirmed Essential hypertension (80536517) Problem Chronic anticoagulation (Z79.01) Active confirmed 858422860 Problem Unsteady gait (R26.81) Active confirmed 13074227 VITAL SIGNS Heart Rate 68 /min 12/03/2024 Blood pressure systolic 126 mm Hg 12/04/19 25 Blood pressure diastolic 86 mm Hg 025 Weight 306 lbs 12/03/2024 BMI 54.2 kg/m2 12/03/2024 Height 63 in 12/03/2024 Oximetry 99 % 12/03/2024 Encounters Encounter Location Date Provider Diagnosis [facility] [address] [facility] [address] [place] [address] 12/03/2024 FREEMAN DUPONT New onset a-fib I48. 91 ; Hx of non-ST elevation myocardial infarction (NSTEMI) I25.2 ; Chronic anticoagulation Z79.01 ; Morbid obesity E66.01 ; BMI 50.0-59.9, adult Z68.43 ; Essential (primary) hypertension I10 ; Prediabetes R73.03 ; Unsteady gait R26.81 and Breast cancer screening by mammogram Z12.31 ASSESSMENTS Encounter Date Diagnosis Assessment Notes Treatment Notes Treatment Clinical Notes Section Notes 12/03/2024 New onset a-fib (ICD-10 - I48.91) [...] software and direct typing Please excuse inadvertent mortuary operations manager or typing errors, or uncorrected word substitutions Although every attempt has been made by the provider to proofread this document, occasional misspellings and typographical errors may still be present Due to the previous pandemic, and the use of personal protective equipment (PPE) This may decrease voice recognition accuracy Inadvertent mortuary operations manager errors may occur 12/03/2024 Hx of non-ST [...] software and direct typing Please excuse inadvertent mortuary operations manager or typing errors, or uncorrected word substitutions Although every attempt has been made by the provider to proofread this document, occasional misspellings and typographical errors may still be present Due to the previous pandemic, and the use of personal protective equipment (PPE) This may decrease voice recognition accuracy Inadvertent mortuary operations manager errors may occur 12/03/2024 Chronic anticoagulation (ICD-10 - Z79.01) Acute [...] software and direct typing Please excuse inadvertent mortuary operations manager or typing errors, or uncorrected word substitutions Although every attempt has been made by the provider to proofread this document, occasional misspellings and typographical errors may still be present Due to the previous pandemic, and the use of personal protective equipment (PPE) This may decrease voice recognition accuracy Inadvertent mortuary operations manager errors may occur 12/03/2024 Morbid obesity (ICD-10 - E66.01) Acute [...] software and direct typing Please excuse inadvertent mortuary operations manager or typing errors, or uncorrected word substitutions Although every attempt has been made by the provider to proofread this document, occasional misspellings and typographical errors may still be present Due to the previous pandemic, and the use of personal protective equipment (PPE) This may decrease voice recognition accuracy Inadvertent mortuary operations manager errors may occur 12/03/2024 BMI 50.0-59.9, adult [...] software and direct typing Please excuse inadvertent mortuary operations manager or typing errors, or uncorrected word substitutions Although every attempt has been made by the provider to proofread this document, occasional misspellings and typographical errors may still be present Due to the previous pandemic, and the use of personal protective equipment (PPE) This may decrease voice recognition accuracy Inadvertent mortuary operations manager errors may occur 12/03/2024 Essential (primary) hypertension (ICD-10 - I10) [...] software and direct typing Please excuse inadvertent mortuary operations manager or typing errors, or uncorrected word substitutions Although every attempt has been made by the provider to proofread this document, occasional misspellings and typographical errors may still be present Due to the previous pandemic, and the use of personal protective equipment (PPE) This may decrease voice recognition accuracy Inadvertent mortuary operations manager errors may occur 12/03/2024 Prediabetes (ICD-10 - [...] software and direct typing Please excuse inadvertent mortuary operations manager or typing errors, or uncorrected word substitutions Although every attempt has been made by the provider to proofread this document, occasional misspellings and typographical errors may still be present Due to the previous pandemic, and the use of personal protective equipment (PPE) This may decrease voice recognition accuracy Inadvertent mortuary operations manager errors may occur 12/03/2024 Unsteady gait (ICD-10 - R26.81) Acute [...] software and direct typing Please excuse inadvertent mortuary operations manager or typing errors, or uncorrected word substitutions Although every attempt has been made by the provider to proofread this document, occasional misspellings and typographical errors may still be present Due to the previous pandemic, and the use of personal protective equipment (PPE) This may decrease voice recognition accuracy Inadvertent mortuary operations manager errors may occur 12/03/2024 Breast cancer screening [...] software and direct typing Please excuse inadvertent mortuary operations manager or typing errors, or uncorrected word substitutions Although every attempt has been made by the provider to proofread this document, occasional misspellings and typographical errors may still be present Due to the previous pandemic, and the use of personal protective equipment (PPE) This may decrease voice recognition accuracy Inadvertent mortuary operations manager errors may occur PLAN OF TREATMENT Medication Medication Name Sig Start Date Stop Date Notes Mounjaro 2.5 MG/0.5ML 2.5mg Subcutaneous weekly for 30 days Ozempic (2 MG/DOSE) 8 MG/3ML 2mg Subcuta neous weekly for 30 days Ozempic (1 MG/DOSE) 4 MG/3ML 1mg Subcuta neous weekly for 30 days Phentermine HCl 15 MG 1 capsule Orally O nce a day for 30 days Ferrous Sulfate 325 (65 Fe) MG 1 tablet Orally Once a day for 90 days Pending Test Test Name Order Date Mammogram 12/03/2024 Next Appt Details Provider Name:FREEMAN DUPONT, 04/04/2025 08:30:00 AM, [address] [place] [address], [facility], [place], [phone], Progress Notes * VARGHESE PARDOADOB:1970 (54 yo F)Acc No.[id number]:12/03/2024 Progress Notes Patient:??TARYN PARDO Provider:??FREEMAN DUPONT NP :1970?Age:54 Y?Sex:Fe male Date:12/03/2024 Address:[address] [place], [place] [id number] Subjective: * Chief Complaints: * ?1. Pt here for follow up, pt has no concerns.. * HPI: ?Constitutional:? Patient is here today for a Chronic Disease Management Follow-up Visit ?Patient seen and examined. ? Full past medical history, social history, family history, ?allergies and current medications were reviewed and updated. ?Acute Concerns/Problem List: ?12/03/2024 ?Patient had been seeing us for primary care as well as weight management ?PMH of HTN, HLD, A-fib on Eliquis, recent NSTEMI, ?Seeing Cardiology Dr. Bolaños on Monday. ? Patient recently admitted to [facility] 11/13-11/16/2024 for A-fib with RVR and NSTEMI ?[id number] score is 3, on Eliquis AC as well as rate control metoprolol ? Patient being managed medically. Reports she is feeling well. ?Denies current symptoms of irregular heart rate, chest pain, swelling of the lower extremities, ?shortness of breath, difficulty breathing, or cough. ?Is now 3 weeks sober. She is proud of this. ?She blames her drinking for going into A fib. ?Abdomen Pelvis CT: Was negative August 27, 2024. ?No abnormality, no mass. ?We discussed this. She needs a colonoscopy. ?Is resistant to this, COloguard will remain positive. ?Of note she had a previous negative Cologuard in 2018 ?She is on Ozempic 2 mg. ?Has only been on this for a few weeks. ?Down from 314-306.lbs ?Injects on Sundays ?Experiencing good appetite suppression. ?We discussed with further weight loss she could come off metformin. ?BP: 120s/80s ?BGL: 107-130 ?Needs a new Shira jackson. ?TTE, October 2024 ?EF of 50 to 55% ?No wall motion abnormalities ?No significant valvular disease ?Nuclear medicine regadenoson stress test, October 2024 ?Positive regadenoson stress test with imaging ?Medium sized moderately severe ischemia of the mid inferior, ?mid inferior septal and apical inferior boo ?other Past medical Hx- MS, headaches, DM2, HTN, asthma, vit D deficiency, ?seasonal allergies, anxiety/depression, HTN, GERD, h.pylori. ?Breathing stable on Trelegy ? managing chronic pain with conservative measures. States she needs a ?right TKR in the future but has to lose weight to qualify for surgery. ?BP stable, average SBP 120's ? per patient. Blood sugars average 101- 150's, stable. A1c today 6.3 ?She had been losing weight on for [place] however got afraid when she started to shed some hair ?Previously on phentermine she does have a history of SVT and hypertension this is not ideal ?Patient reports that exercise is limited due to knee issues. ?Patient reports I don't understand the whole calorie counting thing ?Patient reports breakfast is two and 2 hard boiled, a salad for lunch ?and premier protein chocolate, and steamed fish with rice for dinner. ?Patient reports that she does well with water. ?MOLST/HCP Discussed and Filed ?12/03/2024, Weight 306 , BMI (-4lbs) ?08/06/2024, Weight 310lbs , BMI 54 ?06/08/2023: Weight 300, BMI (+6) ?04/19/2023: Weight 294lbs, BMI 52 (-6lbs) ?03/07/2023: Weight 300lbs, BMI ?01/31/2023, weight 302 pounds, ?12/20/2022- weight 307lbs, BMI 54 ?Comprehensive labs July 2024 ?CBC is stable ?Total cholesterol 145, triglycerides 91, HDL 51, LDL 76 ?Vitamin D 54 ?TSH 1.83 ?Renal function electrolytes and LFTs are stable ?AST 44, ALT 64 ?Hemoglobin A1c of 6.3 ?UA mostly unremarkable ?Health Maintenance- ?Mammography- 11/2022, NEG, BIRADS 1 DUE ?EQUIPMENT VALIDATION SPECIALIST Overdue, she will call. ?COVID MRNA: x3 ?Flu: 2023 ?Cologuard: 07/14/2022 was +, Referall to GI placed, however pt refuses colonoscopy. ?Denies family hx of colorectal ca. ?Of note she had a negative Cologuard back in 2018 ?Neurologist- follows [facility] Ceb[facility] for MS and headaches. * ROS:?All Other Systems:?Review of Systems (ROS)??All others negative except those mentioned in HPI.? * Medical History:??Medical Hi story Verified. * Surgical History:??tubal lig ation , right knee arthroscopy . * Family History:??Father: daylin min, diagnosed with Other specified conditions influencing health status.??Mother: .??3 brother(s) , 2 sister(s) - healthy. 1 son(s) , 3 daughter(s) - healthy. .?? * Social History:?Tobacco Use:??Tobacco Use/Smoking??Are you a??nonsmoker.?? * Medications:??Taking Eliquis 5 MG Tablet as directed Orally , Taking Atorvastatin Calcium 20 MG Tablet 1 tablet Orally Once a day , Taking Metoprolol Succinate ER 25 MG Tablet Extended Release 24 Hour 1 tablet Orally Once a day , Taking Ferrous Sulfate 325 (65 Fe) MG Tablet 1 tablet Orally Once a day , Taking Ozempic (1 MG/DOSE) 4 MG/3ML Solution Pen-injector 1mg Subcutaneous weekly , Taking Vitamin D3 1.25 MG (70011 UT) Capsule 1 capsule Orally once weekly , Taking Aspirin 81 81 MG Tablet Delayed Release 1 tablet Orally Once a day , Taking metFORMIN HCl 500 MG Tablet TAKE 1 TABLET BY MOUTH EVERY DAY WITH A MEAL , Taking Trelegy Ellipta 200-62.5-25 MCG/ACT Aerosol Powder Breath Activated INHALE 1 PUFF INTO THE LUNGS EVERY DAY FOR 30 DAYS , Taking amLODIPine Besylate 2.5 MG Tablet TAKE 1 TABLET BY MOUTH EVERY DAY , Taking Copaxone 40 MG/ML Solution Prefilled Syringe 1 ml Subcutaneous as directed , Notes to Pharmacist: Monday, Monday, Monday, Taking Cyclobenzaprine HCl 5 MG Tablet TAKE 1 TABLET BY MOUTH EVERY DAY AT BEDTIME NEEDED FOR 30 DAYS , Taking buPROPion HCl ER (Smoking Det) 150 MG Tablet Extended Release 12 Hour TAKE 1 TABLET BY MOUTH TWICE A DAY , Taking Diclofenac Sodium 1 % Gel Apply as directed to affected area Externally As needed, Taking Omeprazole 20 MG Capsule Delayed Release 1 capsule 30 minutes before morning meal Orally Once a day , Taking Ozempic (2 MG/DOSE) 8 MG/3ML Solution Pen-injector Inject 2mg Subcutaneous weekly , Discontinued Amitriptyline HCl 100 MG Tablet 1 tablet Orally Once a day , Discontinued FreeStyle Lancets - Miscellaneous test blood sugar vitro dx: e11.9 once daily , Discontinued FreeStyle Lite Test Strips as directed as directed for dx e11.9 in vitro once daily , Discontinued FreeStyle Lite Test - Strip USE 1 TIME DAILY , Discontinued FreeStyle Lite w/Device Kit TEST ONCE DAILY DX E11.9 , Medication List reviewed and reconciled with the patient * Allergies:??N.K.D.A. Objective: * Vitals:??HR:68/min, BP:126/8 6mm Hg, Wt:306lbs, BMI:54.2Index, Ht: 63 in, Oxygen sat %:99%. * Examination: ?General Examination: ?GENERAL APPEARANCE:??in no acute distress, well developed, well nourished.??HEAD:??normocephalic, atraumatic.??EYES:??pupils equal, round, reactive to light and accommodation.??EARS:??normal.??ORAL CAVITY:??mucosa moist.??THROAT:??clear.??NECK/THYROID:??neck supple, full range of motion, no cervical lymphadenopathy.??SKIN:??no suspicious lesions, warm and dry.??HEART:??no murmurs, regular rate and rhythm, S1, S2 normal.??LUNGS:??clear to auscultation bilaterally.??ABDOMEN:??normal, bowel sounds present, soft, nontender, nondistended.??EXTREMITIES:??no clubbing, cyanosis, or edema.??NEUROLOGIC:??nonfocal, motor strength normal upper and lower extremities, sensory exam intact.? Assessment: * Assessment: 1.??New onset a-fib - I48.91 ??2.??Hx of non-ST elevation myocardial infarction (NSTEMI) - I25.2??3.??Chronic anticoagulation - Z79.01??4.??Morbid obesity - E66.01??5.??BMI 50.0-59.9, adult - Z68.43??6.??Essential (primary) hypertension - I10??7.??Prediabetes - R73.03??8.??Unsteady gait - R26.81??9.??Breast cancer screening by mammogram - Z12.31?? Acute Concerns/Problem List: 12/03/2024 Needs new cane. [...] software and direct typing Please excuse inadvertent mortuary operations manager or typing errors, or uncorrected word substitutions Although every attempt has been made by the provider to proofread this document, occasional misspellings and typographical errors may still be present Due to the previous pandemic, and the use of personal protective equipment (PPE) This may decrease voice recognition accuracy Inadvertent mortuary operations manager errors may occur. Plan: * Treatment: 2.??BMI 50.0-59.9, adult?? Start Phentermine HCl Capsule, 15 MG, 1 capsule, Orally, Once a day, 30 days, 30 Capsule, Refills 0.? 3.??Breast cancer screening by mammogram?Imaging: Mammogram * Images: Billing Information: * Visit Code:?? 21156 Office Visit, Est Pt., Level 4. Modifiers: 25, SA * Procedure Codes:?? Care Plan Details* * Sign off status: Completed true * Provider:??FREEMAN DUPONT NP Date:??11/16 History and Physical Notes * HPI (History of Present Illness) Category Sub-Category Detail Notes Category Not es Constitutional Patient is here today for a Chronic Disease Management Follow-up Visit Patient seen and examined. Full past medical history, social history, family history, allergies and current medications were reviewed and updated. Acute Concerns/Problem List: 12/03/2024 Patient had been seeing us for primary care as well as weight management PMH of HTN, HLD, A-fib on Eliquis, recent NSTEMI, Seeing Cardiology Dr. Bolaños on Monday. Patient recently admitted to [facility] 11/13-11/16/2024 for A-fib with RVR and NSTEMI [id number] score is 3, on Eliquis AC as well as rate control metoprolol Patient being managed medically. Reports she is feeling well. Denies current symptoms of irregular heart rate, chest pain, swelling of the lower extremities, shortness of breath, difficulty breathing, or cough. Is now 3 weeks sober. She is proud of this. She blames her drinking for going into A fib. Abdomen Pelvis CT: Was negative August 27, 2024. No abnormality, no mass. We discussed this. She needs a colonoscopy. Is resistant to this, COloguard will remain positive. Of note she had a previous negative Cologuard in 2018 She is on Ozempic 2 mg. Has only been on this for a few weeks. Down from 314-306.lbs Injects on Sundays Experiencing good appetite suppression. We discussed with further weight loss she could come off metformin. BP: 120s/80s BGL: 107-130 Needs a new Shira jackson. TTE, October 2024 EF of 50 to 55% No wall motion abnormalities No significant valvular disease Nuclear medicine regadenoson stress test, October 2024 Positive regadenoson stress test with imaging Medium sized moderately severe ischemia of the mid inferior, mid inferior septal and apical inferior boo other Past medical Hx- MS, headaches, DM2, HTN, asthma, vit D deficiency, seasonal allergies, anxiety/depression, HTN, GERD, h.pylori. Breathing stable on Trelegy managing chronic pain with conservative measures. States she needs a right TKR in the future but has to lose weight to qualify for surgery. BP stable, average SBP 120's per patient. Blood sugars average 101- 150's, stable. A1c today 6.3 She had been losing weight on for Mounjaro however got afraid when she started to shed some hair Previously on phentermine she does have a history of SVT and hypertension this is not ideal Patient reports that exercise is limited due to knee issues. Patient reports I don't understand the whole calorie counting thing Patient reports breakfast is two and 2 hard boiled, a salad for lunch and premier protein chocolate, and steamed fish with rice for dinner. Patient reports that she does well with water. MOLST/HCP Discussed and Filed 12/03/2024, Weight 306 , BMI (-4lbs) 08/06/2024, Weight 310lbs , BMI 54 06/08/2023: Weight 300, BMI (+6) 04/19/2023: Weight 294lbs, BMI 52 (-6lbs) 03/07/2023: Weight 300lbs, BMI 01/31/2023, weight 302 pounds, 12/20/2022- weight 307lbs, BMI 54 Comprehensive labs July 2024 CBC is stable Total cholesterol 145, triglycerides 91, HDL 51, LDL 76 Vitamin D 54 TSH 1.83 Renal function electrolytes and LFTs are stable AST 44, ALT 64 Hemoglobin A1c of 6.3 UA mostly unremarkable Health Maintenance- Mammography- 11/2022, NEG, BIRADS 1 DUE EQUIPMENT VALIDATION SPECIALIST Overdue, she will call. COVID MRNA: x3 Flu: 2023 Cologuard: 07/14/2022 was +, Referall to GI placed, however pt refuses colonoscopy. Denies family hx of colorectal ca. Of note she had a negative Cologuard back in 2019 Neurologist- follows [facility] Ceb[facility] for MS and headaches Examination Category Sub-Category Detail Notes Category Not es General Examination GENERAL APPEARANCE: in no ac xavi distress, well developed, well nourished HEAD: normocephalic, atrau matic EYES: pupils equal, round, reactive to light and accommodation EARS: normal THROAT: clear NECK/THYROID: neck supple, full ra nge of motion, no cervical lymphadenopathy HEART: no murmurs, regular rate and rhythm, S1, S2 normal LUNGS: clear to auscultatio n bilaterally ABDOMEN: normal, bowel sounds present, soft, nontender, nondistended NEUROLOGIC: nonfocal, motor stre ngth normal upper and lower extremities, sensory exam intact SKIN: no suspicious lesion s, warm and dry EXTREMITIES: no clubbing, cyanosi s, or edema ORAL CAVITY: mucosa moist
--- OUTSIDE RECORDS SUMMARY | 2025-01-27 13:29 | XMS_ITS ---
Author Organization [employer] [facility] Address [address] [place] [address] Care Team Providers Care Calender Operator Name Role Phone FREEMAN DUPONT Primary Care Provider [phone] Encounters Encounter Location Date Provider Diagnosis [facility] [address] [address] 11/22/2024 FREEMAN DUPONT PLAN OF TREATMENT Next Appt Details Provider Name:FREEMAN DUPONT, 04/04/2025 08:30:00 AM, [address] [address], [place], [address], Progress Notes * HASMUKH PARDOB:1970 (54 yo F)Acc No.[id number]:11/22/2024 Patient:??TARYN PARDO :1970?Age:54 Y?Sex:Fe male Address:[address] [place] [address], [place] [address] * true * Date:??
== END 2025-01-27 14:28 | disposition home or self-care (01) ==
LOC: HO.HSMS 13:12
PROVIDERS: PCP Internal Medicine; Visit Provider Nurse Practitioner Family
DX: G35 Multiple sclerosis (principal); I10 Essential (primary) hypertension; G43.909 Migraine, unspecified, not intractable, without status migrainosus; G47.33 Obstructive sleep apnea (adult) (pediatric); R20.2 Paresthesia of skin
CPT/HCPCS: 99214; G2211

== ENCOUNTER → 2025-01-27 13:12 | Outpatient (BNVA) | payer OTHER, SELFPAY | PROVIDERS: PCP Internal Medicine; Visit Provider Nurse Practitioner Family | DX: G43.909 Migraine, unspecified, not intractable, without status migrainosus (principal); G47.33 Obstructive sleep apnea (adult) (pediatric); G35 Multiple sclerosis; I10 Essential (primary) hypertension; R20.2 Paresthesia of skin; Z91.199 Patient's noncompliance with other medical treatment and regimen due to unspecified reason | CPT/HCPCS: 99212 ==